=== PATIENT | male | born 1950 | race Caucasian/White ===

== ENCOUNTER 2021-10-22 12:44 | Inpatient (IN) | payer OTHER ==
[~2021-10-22] VITALS: Ht 182 cm; Wt 66.0 kg
--- NOTE | 2021-10-22 12:57 | ED Dyspnea ---
General Stated Complaint: GENERALIZED WEAKNESS Source of Information: Patient, EMS Exam Limitations: No Limitations History of Present Illness Date Seen by Provider: Oct 22, 2021 Time Seen by Provider: 12:38 Initial Comments Patient to the ER by [facility] from home with chief complaint that his jqotgkqs-ij-npd who takes care of him wanted him checked out for pneumonia. Last 2 or 3 days been getting weaker having a productive cough no fevers or chills. 3 months ago he went into the hospital at [place] for a GI bleed and about fci through developed Covid. He just got back home 1 week ago. Is no t having any swelling in his legs but he is having swelling in his right arm for the past week and a half. He is not sure who his PCP is but states that they were unsure why he was having swelling in his arm. He thinks he is on a blood thinner for atrial fibrillation but does not know which one. He is not having any chest pain just some shortness of air weakness lethargy. No diarrhea nausea or vomiting. No sick contacts since he is been home. He was vaccinated for COVID-19 as well as influenza. He has COPD and has been using albuterol treatments about 2 in the last 24 hours for his breathing. He does wear about 3 L of oxygen at baseline. The patient was diagnosed with COVID-19 October 06. Patient started smoking again as soon as he got home. Patient has a EF of 40% according to the nrgwoigf-vu-pum. Allergies and Home Medications Allergies Coded Allergies: No Known Drug Allergies (Unverified , 10/22/21) Patient Home Medication List Home Medication List Reviewed: Yes Review of Systems Review of Systems Constitutional: No chills, No diaphoresis EENTM: No ear discharge, No hearing loss Respiratory: cough, short of breath Cardiovascular: No chest pain; edema (r arm), Hx of Intervention; No palpitations Gastrointestinal: No abdominal pain, No constipation, No diarrhea, No nausea, No vomiting Genitourinary: No discharge, No dysuria Musculoskeletal: No gout, No joint pain, No joint swelling, No muscle pain, No muscle stiffness, No muscle cramps Skin: No pruritus, No rash Psychiatric/Neurological: Denies Headache, Denies Numbness All Other Systems Reviewed Negative Unless Noted: Yes Past Chsyfap-Yauimj-Yeizyz Hx Patient Social History Tobacco Use?: Yes Tobacco type used: Cigarettes Smoking Status: Current Everyday Smoker Use of E-Cig and/or Vaping dev: No Substance use?: No Physical Exam Vital Signs Vital Signs - First Documented 10/22/21 12:50 Temp 36.3 Pulse 64 Resp 18 B/P (MAP) 128/63 (84) Pulse Ox 95 O2 Delivery Nasal Cannula O2 Flow Rate 4.00 Capillary Refill : Height, Weight, BMI Height: '" Weight: lbs. oz. kg; BMI Method: General Appearance: Chronically ill, Mild Distress HEENT: PERRL/EOMI, Pharynx Normal, Moist Mucous Membranes Neck: Full Range of Motion, Normal Inspection Respiratory: No Accessory Muscle Use, No Respiratory Distress, Decreased Breath Sounds, Other (Loose bronchial sounds and a loose cough) Cardiovascular: Regular Rate, Rhythm (65), Normal Peripheral Pulses, Other (Edema of the right arm) Peripheral Pulses: 3+ Radial Pulses (R), 3+ Radial Pulses (L) Gastrointestinal: Normal Bowel Sounds, Non Tender, Soft Extremity: Normal Capillary Refill, No Pedal Edema, Other (Right arm from the axilla down is swollen 1+ edema) Neurologic/Psychiatric: Alert, Oriented x3, No Motor/Sensory Deficits, Normal Mood/Affect Skin: Normal Color, Warm/Dry Progress/Results/Core Measures Results/Orders Lab Results Laboratory Tests Test 10/22/21 13:08 10/22/21 13:14 Range/Units Blood Gas Puncture Site UNK Blood Gas Patient Temperature 97.4 Arterial Blood pH 7.38 7.37-7.43 Arterial Blood Partial Pressure CO2 53 H 35-45 MMHG Arterial Blood Partial Pressure O2 93 79-93 MMHG Arterial Blood HCO3 31 H 23-27 MMOL/L Arterial Blood Total CO2 32.7 H 21.0-31.0 MMOL/L Arterial Blood Oxygen Saturation 99 94-100 % Arterial Blood Base Excess 5.9 H -2.5-2.5 MMOL/L Quincy Test UNK Blood Gas Ventilator Setting NO Blood Gas Inspired Oxygen 4 White Blood Count 6.0 4.3-11.0 10^3/uL Red Blood Count 3.24 L 4.30-5.52 10^6/uL Hemoglobin 9.3 L 13.3-17.7 g/dL Hematocrit 31 L 40-54 % Mean Corpuscular Volume 95 80-99 fL Mean Corpuscular Hemoglobin 29 25-34 pg Mean Corpuscular Hemoglobin Concent 30 L 32-36 g/dL Red Cell Distribution Width 18.6 H 10.0-14.5 % Platelet Count 172 130-400 10^3/uL Mean Platelet Volume 9.6 9.0-12.2 fL Immature Granulocyte % (Auto) 1 % Neutrophils (%) (Auto) 44 42-75 % Lymphocytes (%) (Auto) 43 12-44 % Monocytes (%) (Auto) 13 H 0-12 % Eosinophils (%) (Auto) 0 0-10 % Basophils (%) (Auto) 0 0-10 % Neutrophils # (Auto) 2.6 1.8-7.8 10^3/uL Lymphocytes # (Auto) 2.6 1.0-4.0 10^3/uL Monocytes # (Auto) 0.8 0.0-1.0 10^3/uL Eosinophils # (Auto) 0.0 0.0-0.3 10^3/uL Basophils # (Auto) 0.0 0.0-0.1 10^3/uL Immature Granulocyte # (Auto) 0.0 0.0-0.1 10^3/uL Sodium Level 135 135-145 MMOL/L Potassium Level 4.8 3.6-5.0 MMOL/L Chloride Level 100 98-107 MMOL/L Carbon Dioxide Level 28 21-32 MMOL/L Anion Gap 7 5-14 MMOL/L Blood Urea Nitrogen 17 7-18 MG/DL Creatinine 0.61 0.60-1.30 MG/DL Estimat Glomerular Filtration Rate 101 BUN/Creatinine Ratio 28 Glucose Level 97 70-105 MG/DL Calcium Level 8.3 L 8.5-10.1 MG/DL Corrected Calcium 9.4 8.5-10.1 MG/DL Total Bilirubin 0.4 0.1-1.0 MG/DL Aspartate Amino Transf (AST/SGOT) 17 5-34 U/L Alanine Aminotransferase (ALT/SGPT) 24 0-55 U/L Alkaline Phosphatase 96 40-136 U/L Troponin I < 0.028 <0.028 NG/ML C-Reactive Protein High Sensitivity 15.42 H 0.00-0.50 MG/DL B-Type Natriuretic Peptide 202.0 H <100.0 PG/ML Total Protein 5.7 L 6.4-8.2 GM/DL Albumin 2.6 L 3.2-4.5 GM/DL My Orders Orders - AMY AHUJA Cbc With Automated Diff (10/22/21 12:57) Comprehensive Metabolic Panel (10/22/21 12:57) Hs C Reactive Protein (10/22/21 12:57) Fibrin Degradation Products (10/22/21 12:57) Protime With Inr (10/22/21 12:57) Ua Culture If Indicated (10/22/21 12:57) Chest 1 View, Ap/Pa Only (10/22/21 12:57) Bnp [place] (10/22/21 12:57) Troponin I Alex (10/22/21 12:57) Ekg Tracing (10/22/21 12:57) Arterial Blood Gas (10/22/21 13:08) Us Venous Upper Ext Rt (10/22/21 14:26) Ed Iv/Invasive Line Start (10/22/21 14:26) Piperacillin Sodium/Tazobactam (Zosyn Vi (10/22/21 14:30) Vancomycin Injection (Vancomycin Injecti (10/22/21 14:30) Medications Given in ED Current Medications Medications Dose Ordered Sig/Darion Route Start Time Stop Time Status Last Admin Dose Admin Piperacillin Sod/ Tazobactam Sod 4.5 gm/Sodium Chloride 100 ml @ 200 mls/hr ONCE ONCE IV 10/22/21 14:30 10/22/21 14:59 DC 10/22/21 15:34 200 MLS/HR Vancomycin HCl 1000 mg/Sodium Chloride 250 ml @ 250 mls/hr ONCE ONCE IV 10/22/21 14:30 10/22/21 15:29 DC 10/22/21 15:52 250 MLS/HR Vital Signs/I&O 10/22/21 12:50 Temp 36.3 Pulse 64 Resp 18 B/P (MAP) 128/63 (84) Pulse Ox 95 O2 Delivery Nasal Cannula O2 Flow Rate 4.00 Progress Progress Note #1: Time: 13:02 Progress Note Patient has aseptic vital signs, loose bronchial cough but diminished nonwheezy breath sounds. Plan to get a chest x-ray and some blood work including a D- dimer. With the swelling in his right arm a concern to be for a DVT possible PE. Oxygen saturations on his baseline 3 L are in the mid upper 90s. He does not have any increased overt work of breathing. Bacterial pneumonia versus viral versus PE etc. we will get a BNP and since he has a history of heart attack we will get an EKG and troponin. Progress Note #2: Time: 15:36 Progress Note Patient is resting comfortably has got his blood cultures and will start antibiotics. We will get a CT angiogram of the chest. Initial ECG Impression Date: Oct 22, 2021 Initial ECG Impression Time: 14:20 Initial ECG Rate: 63 Initial ECG Rhythm: Normal Sinus Initial ECG Intervals: Normal Initial ECG Impression: Normal Comment Normal sinus rhythm without clinically relevant ST elevation or depression. Diagnostic Imaging Diagonstic Imaging: Xray Plain Films/CT/US/NM/MRI: chest Comments [facility], [place] NAME: PRIMO CHIRINOS MED REC#: [id number] PT STATUS: REG ER : 1950 PHYSICIAN: AMY AHUJA MD ADMIT DATE: 10/22/21/ER Draft Date of Exam:10/22/21 CHEST 1 VIEW, AP/PA ONLY INDICATION: Weakness. TIME OF EXAM: 1:21 PM No prior studies are available for comparison. Heart size is mildly enlarged. There appears to be some infiltrate in the left base obscuring the left hemidiaphragm as well as a small left effusion. There is some mild patchy infiltrate or atelectasis right mid lower lung field as well. Upper lung arnold are clear. There is no pneumothorax. IMPRESSION: Bibasilar infiltrates, left greater as well as small left effusion. Dictated on workstation # [id number] Dict: 10/22/21 1329 Trans: 10/22/21 1332 [id number] Interpreted by: DWIGHT KRUEGER MD Electronically signed by: Reviewed: Reviewed by Me Diagonstic Imaging: Ultrasound Plain Films/CT/US/NM/MRI: other (upper ext right) Comments Right arm superficial cephalic vein has clot burden all the way up to and in the subclavian where becomes deep vein. NAME: PRIMO CHIRINOS MED REC#: [id number] PT STATUS: REG ER : 1950 PHYSICIAN: AMY AHUJA MD ADMIT DATE: 10/22/21/ER Draft Date of Exam:10/22/21 US VENOUS UPPER EXT RT INDICATION: Right arm swelling. FINDINGS: Right internal jugular vein is patent. There is thrombus identified in the subclavian vein which appears to be near totally occlusive. This is also noted in a portion of the axillary vein. Brachial vein is patent. Radial and ulnar veins are patent. There is occlusive thrombus throughout the cephalic vein. Basilic vein was poorly visualized. 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 Dictated on workstation # [id number] Dict: 10/22/21 1530 Trans: 10/22/21 1537 [id number] Interpreted by: DWIGHT KRUEGER MD Electronically signed by: Reviewed: Reviewed by Me Diagonstic Imaging: CT (Angiogram) Plain Films/CT/US/NM/MRI: chest Comments [facility] [place] NAME: PRIMO CHIRINOS [facility] REC#: [id number] PT STATUS: ADM IN : 1950 PHYSICIAN: RADHA PAUL APRN ADMIT DATE: 10/22/21/ Signed Date of Exam:10/22/21 CT ANGIO CHEST W PROCEDURE: CT angiography of the chest with contrast. TECHNIQUE: Multiple contiguous axial images were obtained through the chest after uneventful bolus administration of intravenous contrast. 3D reconstructed CTA MIP acquisitions were also performed. Auto Exposure Controls were utilized during the CT exam to meet ALARA standards for radiation dose reduction. INDICATION: Shortness of air. COMPARISON: No prior CT angiogram chest studies are available for comparison. FINDINGS: Evaluation of the pulmonary arterial system does show filling defect in a lobar artery to the right middle lobe as well as a segmental branch to the right middle lobe. There is a filling defect involving segmental and subsegmental branches to the right lower lobe. No definite left-sided pulmonary emboli are seen. No central emboli are detected. The thoracic aorta is normal in caliber. There is no dissection. There is a small right and sqoim-ej-hckfdrkk left pleural effusion. Parenchymal evaluation does show centrilobular emphysematous changes. There is some minimal patchy infiltrate in the posterior left upper lobe. There is bibasilar consolidation. Upper abdomen is unremarkable apart from small stones within the gallbladder. IMPRESSION: 1. Findings positive for pulmonary emboli involving lobar and segmental branches to the right middle lobe and right lower lobe. No central emboli are seen. There are no findings to suggest right heart strain. 2. Bilateral effusions, left greater, with bibasilar consolidation. Results were called to Radha Paul in the emergency department prior to this dictation. Dictated by: Dictated on workstation # [id number] Dict: 10/22/21 1552 Trans: 10/22/21 1639 [id number] Interpreted by: DWIGHT KRUEGER MD Electronically signed by: DWIGHT KRUEGER MD 10/22/21 1639 Reviewed: Reviewed by Me Departure Communication (Admissions) Time/Spoke to Admitting Phy: 14:20 Discussed the case with Dr. Segura and he agrees to admit the patient to the floor with physical therapy consult. Impression Primary Impression: Aspiration pneumonia Qualified Codes: J69.0 - Pneumonitis due to inhalation of food and vomit Additional Impressions: Physical debility Superficial venous thrombosis of right upper extremity Disposition: ADMITTED INPATIENT Condition: Stable Admissions Decision to Admit Reason: Admit from ER (General) Decision to Admit/Date: Oct 22, 2021 Time/Decision to Admit Time: 14:15 Departure-Patient Inst. Referrals: NO,LOCAL PHYSICIAN (PCP/Family) Primary Care Physician AMY AHUJA Oct 22, 2021 12:57
[2021-10-22 13:21] LABS: BASOPHILS % (AUTO) 0 % (0-10); EOSINOPHILS % (AUTO) 0 % (0-10); HEMATOCRIT 31 % (40-54); HEMOGLOBIN 9.3 g/dL (13.3-17.7); LYMPHOCYTES # (AUTO) 2.6 10^3/uL (1.0-4.0); LYMPHOCYTES % (AUTO) 43 % (12-44); MEAN CORPUSCULAR HEMOGLOBIN 29 pg (25-34); MEAN CORPUSCULAR HGB CONC 30 g/dL (32-36); MEAN CORPUSCULAR VOLUME 95 fL (80-99); MEAN PLATELET VOLUME 9.6 fL (9.0-12.2); MONOCYTES # (AUTO) 0.8 10^3/uL (0.0-1.0); MONOCYTES % (AUTO) 13 % (0-12); NEUTROPHILS # (AUTO) 2.6 10^3/uL (1.8-7.8); NEUTROPHILS % (AUTO) 44 % (42-75); PLATELET COUNT 172 10^3/uL (130-400)
[2021-10-22 13:22] LABS: ABG BASE EXCESS 5.9 MMOL/L (-2.5-2.5); ABG OXYGEN SATURATION 99 % (94-100); ABG PCO2 53 MMHG (35-45); ABG PH 7.38 (7.37-7.43); ABG PO2 93 MMHG (79-93); ABG TCO2 32.7 MMOL/L (21.0-31.0)
[2021-10-22 13:23] LABS: INSPIRED O2 4; PATIENT TEMP 97.4; VENTILATOR NO
[2021-10-22 13:32] LABS: ALBUMIN 2.6 GM/DL (3.2-4.5)
--- NOTE | 2021-10-22 13:32 | Diagnostic Imaging Report ---
INDICATION: Weakness. TIME OF EXAM: 1:21 PM No prior studies are available for comparison. Heart size is mildly enlarged. There appears to be some infiltrate in the left base obscuring the left hemidiaphragm as well as a small left effusion. There is some mild patchy infiltrate or atelectasis right mid lower lung field as well. Upper lung arnold are clear. There is no pneumothorax. IMPRESSION: Bibasilar infiltrates, left greater as well as small left effusion. Dictated by: Dictated on workstation # [id number]
[2021-10-22 13:33] LABS: CHLORIDE 100 MMOL/L (98-107); POTASSIUM 4.8 MMOL/L (3.6-5.0); SODIUM 135 MMOL/L (135-145)
[2021-10-22 13:34] LABS: CALCIUM 8.3 MG/DL (8.5-10.1)
[2021-10-22 13:35] LABS: GLUCOSE 97 MG/DL (70-105); TOTAL PROTEIN 5.7 GM/DL (6.4-8.2)
[2021-10-22 13:36] LABS: CARBON DIOXIDE 28 MMOL/L (21-32)
[2021-10-22 13:37] LABS: BILIRUBIN,TOTAL 0.4 MG/DL (0.1-1.0)
[2021-10-22 13:38] LABS: ALKALINE PHOSPHATASE 96 U/L (40-136)
[2021-10-22 13:39] LABS: CREATININE SERUM 0.61 MG/DL (0.60-1.30); GFR ESTIMATED 101
[2021-10-22 13:40] LABS: BUN/CREATININE RATIO 28
[2021-10-22 13:42] LABS: ALANINE AMINOTRANSFERASE 24 U/L (0-55)
[2021-10-22] MEDS ORDERED: PIPERACILLIN SODIUM/TAZOBACTAM 4.5 GM in NS (IVPB) 100 ML IV ONE (14:30)
[2021-10-22] MEDS ORDERED: VANCOMYCIN INJECTION 1,000 MG in NS (IVPB) 250 ML IV ONE (14:30)
[2021-10-22 14:45] LABS: BILIRUBIN,URINE NEGATIVE (NEGATIVE); CLARITY,URINE CLEAR; COLOR,URINE YELLOW; GLUCOSE, URINE (UA) NEGATIVE (NEGATIVE); KETONES,URINE NEGATIVE (NEGATIVE); LEUKOCYTE ESTERASE ,URINE NEGATIVE (NEGATIVE); NITRITE,URINE NEGATIVE (NEGATIVE); PH,URINE 6.5 (5-9); PROTEIN,URINE TRACE (NEGATIVE)
[2021-10-22 14:57] LABS: BACTERIA,URINE NEGATIVE /HPF; RBC,URINE 0-2 /HPF; WBC,URINE RARE /HPF
[2021-10-22] MEDS ORDERED: IOHEXOL 350 MG/ML 100 ML (OMNIPAQUE 350) VIAL IV ONE (15:30)
[2021-10-22] MEDS ORDERED: NS 100 ML (IVPB) BAG IV ONE (15:30)
[2021-10-22] MEDS ORDERED: CATHETER FLUSH 10 ML SYR IV PRN (15:30)
[2021-10-22] MEDS ORDERED: HOLD METFORMIN - RECEIVED CONTRAST 20 ML VIAL IV SCH (15:30)
--- NOTE | 2021-10-22 15:38 | Diagnostic Imaging Report ---
INDICATION: Right arm swelling. FINDINGS: Right internal jugular vein is patent. There is thrombus identified in the subclavian vein which appears to be near totally occlusive. This is also noted in a portion of the axillary vein. Brachial vein is patent. Radial and ulnar veins are patent. There is occlusive thrombus throughout the cephalic vein. Basilic vein was poorly visualized. 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 Dictated by: Dictated on workstation # [id number]
--- NOTE | 2021-10-22 16:01 | Diagnostic Imaging Report ---
PROCEDURE: CT angiography of the chest with contrast. TECHNIQUE: Multiple contiguous axial images were obtained through the chest after uneventful bolus administration of intravenous contrast. 3D reconstructed CTA MIP acquisitions were also performed. Auto Exposure Controls were utilized during the CT exam to meet ALARA standards for radiation dose reduction. INDICATION: Shortness of air. COMPARISON: No prior CT angiogram chest studies are available for comparison. FINDINGS: Evaluation of the pulmonary arterial system does show filling defect in a lobar artery to the right middle lobe as well as a segmental branch to the right middle lobe. There is a filling defect involving segmental and subsegmental branches to the right lower lobe. No definite left-sided pulmonary emboli are seen. No central emboli are detected. The thoracic aorta is normal in caliber. There is no dissection. There is a small right and rcrrc-cg-deeoqviw left pleural effusion. Parenchymal evaluation does show centrilobular emphysematous changes. There is some minimal patchy infiltrate in the posterior left upper lobe. There is bibasilar consolidation. Upper abdomen is unremarkable apart from small stones within the gallbladder. IMPRESSION: 1. Findings positive for pulmonary emboli involving lobar and segmental branches to the right middle lobe and right lower lobe. No central emboli are seen. There are no findings to suggest right heart strain. 2. Bilateral effusions, left greater, with bibasilar consolidation. Results were called to Yao Paul in the emergency department prior to this dictation. Dictated by: Dictated on workstation # [id number]
[2021-10-22 16:07] LABS: FIBRIN DEGRADATION PRODUCTS 1.61 UG/ML (0.00-0.49); PROTHROMBIN TIME PATIENT 13.9 SEC (12.2-14.7)
[2021-10-22 17:34] VITALS: BP 143/61
[2021-10-22] MEDS ORDERED: ONDANSETRON 4 MG/2 ML (SDV) Z0FRAN IVP PRN (19:00)
[2021-10-22 19:15] VITALS: BP 126/67
[2021-10-22] MEDS: LACTATED RINGERS 1,000 ML IV SCH (20:23)
[2021-10-22] MEDS: ENOXAPARIN 60 MG/0.6 ML (LOVENOX) SYR SC SCH (20:23)
[2021-10-22] MEDS: ALPRAZolam 0.25 MG (XANAX) TAB PO PRN (20:29)
[2021-10-22] MEDS ORDERED: NICOTINE 14 MG (NICODERM) PATCH TD ONE (21:00)
[2021-10-22] MEDS: RT-ALBUTEROL/IPRATROPIUM 3 ML (DUONEB) VIAL IH SCH (22:02)
[2021-10-22] MEDS: PIPERACILLIN SODIUM/TAZOBACTAM 4.5 GM in NS (IVPB) 100 ML IV SCH (22:45)
[2021-10-22] MEDS: ACETAMINOPHEN 500 MG TAB (TYLENOL) PO PRN (23:28)
[2021-10-23] VITALS: BP 113/57
[2021-10-23] MEDS: RT-ALBUTEROL/IPRATROPIUM 3 ML (DUONEB) VIAL IH SCH ×4 (02:52→21:45)
[2021-10-23 04:13] VITALS: BP 123/60
[2021-10-23] MEDS: VANCOMYCIN 1 GM/NS 250 ML IVPB IV SCH ×6 (04:28→17:54)
[2021-10-23] MEDS: PIPERACILLIN SODIUM/TAZOBACTAM 4.5 GM in NS (IVPB) 100 ML IV SCH ×3 (05:50→21:07)
[2021-10-23] MEDS: LEVOTHYROXINE 100 MCG (LEVOTHROID) TAB PO SCH (05:50)
[2021-10-23 06:48] LABS: BASOPHILS % (AUTO) 0 % (0-10); EOSINOPHILS % (AUTO) 1 % (0-10); HEMATOCRIT 28 % (40-54); HEMOGLOBIN 8.4 g/dL (13.3-17.7); LYMPHOCYTES # (AUTO) 3.1 10^3/uL (1.0-4.0); LYMPHOCYTES % (AUTO) 56 % (12-44); MEAN CORPUSCULAR HEMOGLOBIN 29 pg (25-34); MEAN CORPUSCULAR HGB CONC 31 g/dL (32-36); MEAN CORPUSCULAR VOLUME 95 fL (80-99); MONOCYTES # (AUTO) 0.6 10^3/uL (0.0-1.0); MONOCYTES % (AUTO) 10 % (0-12); NEUTROPHILS # (AUTO) 1.8 10^3/uL (1.8-7.8); NEUTROPHILS % (AUTO) 33 % (42-75); PLATELET COUNT 154 10^3/uL (130-400); WHITE BLOOD COUNT 5.6 10^3/uL (4.3-11.0)
[2021-10-23 07:02] LABS: POTASSIUM 4.8 MMOL/L (3.6-5.0)
[2021-10-23 07:07] LABS: CREATININE SERUM 0.65 MG/DL (0.60-1.30)
[2021-10-23 07:24] VITALS: BP 133/65
[2021-10-23] MEDS: LACTATED RINGERS 1,000 ML IV SCH ×3 (08:10→16:33)
[2021-10-23] MEDS ORDERED: NICOTINE 7 MG (NICODERM) PATCH TD PRN (09:00)
[2021-10-23] MEDS: NICOTINE 14 MG (NICODERM) PATCH TD SCH (09:18)
[2021-10-23] MEDS: NICOTINE PATCH REMOVAL TP SCH (09:18)
[2021-10-23] MEDS: ENOXAPARIN 60 MG/0.6 ML (LOVENOX) SYR SC SCH ×2 (09:18→21:07)
--- NOTE | 2021-10-23 09:42 | Diagnostic Imaging Report ---
EXAMINATION: Chest radiograph, portable AP view. DATE: 10/23/2021 9:15 AM INDICATION: 71-year-old male, shortness of breath. COMPARISON: October 22, 2021. FINDINGS: Heart size and mediastinal contours are unchanged. There is no identified pneumothorax. There are sutures projecting over the right upper lobe. There is mid and lower lung zone consolidation on the right and nonspecific left basilar airspace consolidation which is unchanged. IMPRESSION: 1. Unchanged nonspecific right mid and lower lung zone consolidation and consolidation in the left lung base. Dictated by: Dictated on workstation # [id number]
--- NOTE | 2021-10-23 10:52 | Occupational Therapy Eval ---
OT Evaluation-General/PLF Medical Diagnosis Admission Date Oct 22, 2021 at 14:30 Medical Diagnosis: PNA, aspiration, physical debility, PE Onset Date: Oct 22, 2021 Therapy Diagnosis Therapy Diagnosis: decreased ADL status Precautions Precautions/Isolations: Standard Precautions Referral Physician: Sana Robin Reason: Evaluation/Treatment Medical History Additional Medical History Post COVID Current History ED s/o of daughter in law wanting pt checked for pneumonia. 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 6-Jbhltkihho-jsewxdr completes the activity by him/herself with no assistance from a helper. 5-Set-up or Clean-up Assistance-helper sets up or cleans up; patient completes activity. Hopkins assists only prior to or following the activity. 4-Supervision or Touching Assistance-helper provides verbal cues and/or touching/steadying and/or contact guard assistance as patient completes activity. Assistance may be provided throughout the activity or intermittently. 3-Partial/Moderate Assistance-helper does LESS THAN HALF the effort. Hopkins lifts, holds or supports trunk or limbs, but provides less than half the effort. 2-Substantial/Maximal Assistance-helper does MORE THAN HALF the effort. [place] lifts or holds trunk or limbs and provides more than half the effort. 8-Bwzhuaihr-wmbgaw does ALL the effort. Patient does none of the effort to complete the activity. Or, the assistance of 2 or more helpers is required for the patient to complete the activity. If activity was not attempted, code reason: 7-Patient Refused. 9-Not Applicable-not attempted and the patient did not perform the activity before the current illness, exacerbation or injury. 10-Not Attempted due to Environmental Limitations-(lack of equipment, weather restraints, etc.). 88-Not Attempted due to Medical Conditions or Safety Concerns. ADL PLOF Comments Pt reports independent with dressing and toileting, required some assistance with showering and assistance with functional mobility using FWW. Pt lives with daughter in law and her , indicates the is home all the time, daughter in law cleans houses and can be home when she wants/needs to. Self Care: Needed Some Help OT Current Status Subjective Pt in bed, agreeable to OT evaluation. Mental Status/Objective Patient Orientation: Person, Place, Situation Attachments: IV, Oxygen Current Upper Extremity ROM Slightly decreased Upper Extremity Strength grossly 3/5 Edema: RUE swelling ADL-Treatment Eating (QC): 6 (IND per nursing report.) Shower/Bathe Self (QC): 1 (Per clincial judgment, assist x2 needed.) Lower Body Dressing (QC): 1 (Per clincial judgment, assist x2 needed.) On/Off Footwear (QC): 1 (total assist with gripper socks.) Toileting Hygiene (QC): 1 (Per clincial judgment, assist x2 needed.) Other Treatments Pt in bed, agreeable to OT Tx. PT transferred supine to sit EOB, assistance with upper body. Pt had difficulty maintaining EOB sitting, requiring assistance with maintaining trunk upright. Pt stood at walker, retropulsive, transferred to recliner. Pt uncoordinated with steps, requiring assistance guiding walker in order to turn to the chair. Pt stood 1 more time in order for waffle cushion to be placed underneath him, pt had more difficulty standing from lower surface, assist x2 required. Post tx, pt in recliner, call light in reach and all needs met. Waffle cushion in place. Education OT Patient Education: Correct positioning, Energy conservation, Modified ADL techniques, Progress toward Goal/Update tx plan, Rehab process Teaching Recipient: Patient Teaching Methods: Discussion Response to Teaching: Verbalize Understanding OT Vocational Examiner Goals Vocational Examiner Goals Time Frame: Nov 06, 2021 Eating (QC): 6 Oral Hygiene (QC): 5 Toileting Hygiene (QC): 4 Shower/Bathe Self (QC): 3 Upper Body Dressing (QC): 4 Lower Body Dressing (QC): 3 On/Off Footwear (QC): 3 Additional Goals: 1-Demonstrate ADL Tasks, 2-Verbalize Understanding, 3- ImproveStrength/Luana 1=Demonstrate adherence to instructed precautions during ADL tasks. 2=Patient will verbalize/demonstrate understanding of assistive devices/modifications for ADL. 3=Patient will improve strength/tolerance for activity to enable patient to perform ADL's. OT Education/Plan Problem List/Assessment Assessment: Decreased Activ Tolerance, Decreased UE Strength, Dependent Transfers, Impaired Bed Mobility, Impaired Funct Balance, Impaired I ADL's, Impaired Self-Care Skills Discharge Recommendations Plan/Recommendations: Continue POC Treatment Plan/Plan of Care Patient would benefit from OT for education, treatment and training to promote independence in ADL's, mobility, safety and/or upper extremity function for ADL's. Plan of Care: ADL Retraining, Functional Mobility, UE Funct Exercise/Act Treatment Duration: Nov 06, 2021 Frequency: 3 times per week (3-5 times per week) Estimated Hrs Per Day: .25 hour per day Rehab Potential: Guarded Time/GCodes Start Time: 10:16 Stop Time: 10:32 Total Time Billed (hr/min): 16 Billed Treatment Time 1, KEN ANTUNEZ OT Oct 23, 2021 10:52
--- NOTE | 2021-10-23 11:22 | Physical Therapy Evaluation ---
PT Evaluation-General Medical Diagnosis Admission Date Oct 22, 2021 at 14:30 Medical Diagnosis: PNA, aspiration, physical debility, PE Onset Date: Oct 22, 2021 Therapy Diagnosis Therapy Diagnosis: weakness, debility Precautions Precautions/Isolations: Standard Precautions Weight Bear Status Right Lower Extremity: Right Full Weight Bearing Left Lower Extremity: Left Full Weight Bearing Referral Physician: Sana Reason for Referral: Evaluation/Treatment Social History Home: Single Level Current Living Status: Other Family Prior Prior Level of Function SCALE: Activities may be completed with or without assistive devices. 5-Wdkmhswcqb-tkhvxvw completes the activity by him/herself with no assistance from a helper. 5-Set-up or Clean-up Assistance-helper sets up or cleans up; patient completes activity. Wheeler assists only prior to or following the activity. 4-Supervision or Touching Assistance-helper provides verbal cues and/or touching/steadying and/or contact guard assistance as patient completes activity. Assistance may be provided throughout the activity or intermittently. 3-Partial/Moderate Assistance-helper does LESS THAN HALF the effort. Wheeler lifts, holds or supports trunk or limbs, but provides less than half the effort. 2-Substantial/Maximal Assistance-helper does MORE THAN HALF the effort. Wheeler lifts or holds trunk or limbs and provides more than half the effort. 0-Opbdtybfp-tyiigw does ALL the effort. Patient does none of the effort to complete the activity. Or, the assistance of 2 or more helpers is required for the patient to complete the activity. If activity was not attempted, code reason: 7-Patient Refused. 9-Not Applicable-not attempted and the patient did not perform the activity before the current illness, exacerbation or injury. 10-Not Attempted due to Environmental Limitations-(lack of equipment, weather restraints, etc.). 88-Not Attempted due to Medical Conditions or Safety Concerns. Bed Mobility: 3 Transfers (B,C,W/C): 3 Gait: 3 Prior Devices Use: Walker PT Evaluation-Current Subjective Pt presents supine in bed upon arrival to room, agreeable to PT evaluation this date. Pt/Family Goals Following session, pt up in chair with call light, tray table, and phone all within reach. All needs met Objective Patient Orientation: Person, Place, Situation Attachments: Oxygen, IV ROM/Strength ROM Lower Extremities grossly WFL Strength Lower Extremities grossly WFL Integumentary/Posture Integumentary refer to nursing notes Neuromuscular (Tone, Coordination, Reflexes) grossly intact Transfers Roll Left to Right (QC): 4 Lying to Sitting/Side of Bed(Q: 3 Sit to Stand (QC): 2 Chair/Qjl-by-Kqpbe Xfer(QC): 3 Pt requires min-mod A for bed mobility. While sitting EOB, pt repulsive, able to correct with cues but unable to maintain. Gait Does the Patient Walk?: Yes Mode of Locomotion: Walk Anticipated Mode of Locomotion: Walk Walk 10 feet (QC): 3 Gait Assistive Device: FWW Comments/Gait Description Pt able to ambulate 10' with FWW, very uncoordinated steps, and retropulsive. Unable to move NIKKI forward with cueing, requires manual assistance to lean forward. Assessment/Needs Pt is a 71 year old male, with decreased strength, decreased balance, decreased functional mobility and activity tolerance following prolonged hospital stay. Pt would benefit from skilled PT to address above mentioned limitations and ensure safety upon dc from hospital. Rehab Potential: Fair PT Short Term Goals Short Term Goals Time Frame: Nov 06, 2021 Roll Left & Right: 4 Sit to lyin Lying to sitting on side of be: 4 Sit to stand: 4 Chair/qoa-im-ylvti transfer: 4 Walk 10 feet: 4 Walk 50 feet with two turns: 4 PT Group Home Goals Group Home Goals PT C[employer] Goals Time Frame: Nov 20, 2021 Roll Left & Right (QC): 6 Sit to Lying (QC): 6 Lying-Sitting on Side/Bed(QC): 6 Sit to Stand (QC): 6 Chair/Hvl-ve-Uosos Xfer(QC): 6 Walk 10 feet (QC): 6 Walk 50ft with 2 Turns (QC): 6 PT Plan Problem List Problem List: Activity Tolerance, Functional Strength, Safety, Balance, Gait, Transfer, Bed Mobility, ROM Treatment/Plan Treatment Plan: Continue Plan of Care Treatment Plan: Bed Mobility, Education, Functional Activity Luana, Functional Strength, Gait, Safety, Therapeutic Exercise, Transfers Treatment Duration: Nov 20, 2021 Frequency: 6 times per week Estimated Hrs Per Day: .25 hour per day Patient and/or Family Agrees t: Yes Time/GCodes Time In: 1017 Time Out: 1032 Total Billed Treatment 1 visit [facility] (15') JESSICA BENSON PT Oct 23, 2021 11:22
[2021-10-23 11:31] VITALS: BP 123/53
[2021-10-23 16:00] VITALS: BP 118/54
--- NOTE | 2021-10-23 16:32 | History & Physical-Hospitalist ---
History of Present Illness HPI/Chief Complaint Anthony Trotter is a 71 year old male with PMH atrial fibrillation, recent GI bleed, HLD, COPD, tobacco abuse, who presented with shortness of breath. He was recently discharged from [facility] after a nearly two month hospitalization. He reports that he was treated for pneumonia, COVID, and GI bleeding. He was debilitated and had to move in with his daughter in [place] on discharge. He had previously been living at his home by himself in [place]. He had been home about ten days prior to coming into our ER. His daughter was concerned that he was developing pneumonia. He was set up with home oxygen on discharge and was supposed to be on 3 L, but he says after a week of being at home they came and took his oxygen tank. He has also had right arm swelling where a PICC line had been during his hospital stay. Source: patient Exam Limitations: no limitations Date Seen 10/23/21 Time Seen by a Provider: 11:30 Attending Physician Ana Quiroz MD PCP No,Local Physician Referring Physician Date of Admission Oct 22, 2021 at 14:30 Home Medications & Allergies Home Medications Reviewed patient Home Medication Reconciliation performed by pharmacy medication reconciliations military administrative technician and/or nursing. Patients Allergies have been reviewed. Allergies Allergies Coded Allergies No Known Drug Allergies (Unverified10/22/21) Past Qiixfhs-Iusmqx-Tyiuqy Hx Patient Social History Tobacco Use?: Yes Tobacco type used: Cigarettes Smoking Status: Current Everyday Smoker Use of E-Cig and/or Vaping dev: No Substance use?: No Alcohol Use?: No Pt feels they are or have been: No Immunizations Up To Date First/Initial COVID19 Vaccinat: 2020 Second COVID19 Vaccination Femi: 2020 Tetanus Booster (TDap): Unknown Hepatitis A: No Hepatitis B: No Current Status Advance Directives: No Communicates: Verbally Primary Language: Honduran Preferred Spoken Language: Honduran Is interpretation needed?: No Implanted or Applied Medical D: None Past Medical History Atrial Fibrillation, High Cholesterol Gastrointestinal Bleed Family Medical History No Pertinent Family Hx Review of Systems Constitutional: weakness EENTM: no symptoms reported Respiratory: cough, short of breath Cardiovascular: no symptoms reported Gastrointestinal: no symptoms reported Genitourinary: no symptoms reported Musculoskeletal: no symptoms reported Skin: no symptoms reported Psychiatric/Neurological: No Symptoms Reported Physical Exam Physical Exam Vital Signs Vital Signs - First Documented 10/22/21 12:50 Temp 36.3 Pulse 64 Resp 18 B/P (MAP) 128/63 (84) Pulse Ox 95 O2 Delivery Nasal Cannula O2 Flow Rate 4.00 Capillary Refill : Less Than 3 Seconds Height, Weight, BMI Height: '" Weight: lbs. oz. kg; 19.92 BMI Method: General Appearance: No Apparent Distress, Chronically ill, Thin HEENT: PERRL/EOMI, Pharynx Normal Neck: Normal Inspection, Supple Respiratory: Lungs Clear, No Respiratory Distress Cardiovascular: Regular Rate, Rhythm, No Murmur Gastrointestinal: Normal Bowel Sounds, Non Tender, Soft Extremity: Normal Inspection, Non Tender, No Pedal Edema Neurologic/Psychiatric: Alert, Oriented x3, Normal Mood/Affect Skin: Normal Color, Warm/Dry Results Results/Procedures Labs Laboratory Tests 10/22/21 13:14 10/23/21 05:20 Patient resulted labs reviewed. Imaging: Reviewed Imaging Report Assessment/Plan Admission Diagnosis Acute on chronic respiratory failure with hypoxia Admission Status: Inpatient Order (span 2 midnights) Reason for Inpatient Admission: IV antibiotics Assessment and Plan Acute on chronic respiratory failure with hypoxia Pulmonary embolism Pneumonia Not septic CT showed pulmonary emboli, bibasilar consolidations Started on therapeutic Lovenox Started on Vancomycin and Zosyn for pneumonia, recently hospitalized Requiring supplemental oxygen, slightly above baseline 3 L Atrial fibrillation Recent GI bleed Anemia Continue amiodarone and diltiazem Lovenox Obtain records from [facility]F Reportedly reduced EF Obtain records Does not appear to be decompensated Tobacco abuse COPD Nicotine patch MAT protocol Debility PT/OT IRF evaluation Diagnosis/Problems Diagnosis/Problems (1) Acute on chronic respiratory failure with hypoxia Status: Acute (2) Pulmonary embolism Status: Acute Qualifiers: Chronicity: acute (3) Acute deep vein thrombosis (DVT) of axillary vein of right upper extremity Status: Acute (4) Pneumonia Status: Acute (5) Paroxysmal atrial fibrillation Status: Chronic (6) History of GI bleed Status: Chronic (7) Anemia Status: Chronic (8) Tobacco abuse Status: Chronic (9) CHF (congestive heart failure) Status: Chronic (10) History of recent hospitalization Status: Acute (11) Debility Status: Acute ANA QUIROZ MD Oct 23, 2021 16:32
[2021-10-23] MEDS: TAMSULOSIN 0.4 MG (FLOMAX) CAP PO SCH (17:51)
[2021-10-23] MEDS ORDERED: RT-ALBUINH IH (19:58)
[2021-10-23] MEDS ORDERED: DOCU100C37 PO (19:58)
[2021-10-23] MEDS ORDERED: CYAN100088 PO (19:58)
[2021-10-23] MEDS ORDERED: ALPR0.25 PO (19:58)
[2021-10-23] MEDS ORDERED: LEVO200C2 PO (19:58)
[2021-10-23] MEDS ORDERED: AMIO200T65 PO (19:58)
[2021-10-23] MEDS ORDERED: ATOR10TA66 PO (19:58)
[2021-10-23] MEDS ORDERED: MIRT-68 PO (19:58)
[2021-10-23] MEDS ORDERED: TMSL.4C PO (19:58)
[2021-10-23] MEDS ORDERED: DLT90CCR PO (19:58)
[2021-10-23] MEDS ORDERED: VITA400C64 PO (19:58)
[2021-10-23] MEDS ORDERED: IPRA4AER IH (19:58)
[2021-10-23] MEDS ORDERED: OMEP20TA7 PO (19:58)
[2021-10-23 20:00] VITALS: BP 124/52
[2021-10-23] MEDS ORDERED: OMEP40CA6 PO (20:02)
[2021-10-23] MEDS: ALPRAZolam 0.25 MG (XANAX) TAB PO PRN (21:06)
[2021-10-23] MEDS ORDERED: PANTOPRAZOLE 40 MG (PROTONIX) TAB PO ONE (22:45)
[2021-10-24 01:01] VITALS: BP 123/60
[2021-10-24 03:48] VITALS: BP 118/59
[2021-10-24] MEDS: LEVOTHYROXINE 100 MCG (LEVOTHROID) TAB PO SCH (05:20)
[2021-10-24] MEDS: PANTOPRAZOLE 40 MG (PROTONIX) TAB PO SCH ×2 (05:20→15:56)
[2021-10-24] MEDS: PIPERACILLIN SODIUM/TAZOBACTAM 4.5 GM in NS (IVPB) 100 ML IV SCH ×3 (05:20→21:24)
[2021-10-24 06:00] LABS: BASOPHILS % (AUTO) 0 % (0-10); EOSINOPHILS % (AUTO) 1 % (0-10); HEMATOCRIT 28 % (40-54); HEMOGLOBIN 8.6 g/dL (13.3-17.7); LYMPHOCYTES # (AUTO) 3.3 10^3/uL (1.0-4.0); LYMPHOCYTES % (AUTO) 56 % (12-44); MEAN CORPUSCULAR HEMOGLOBIN 29 pg (25-34); MEAN CORPUSCULAR HGB CONC 31 g/dL (32-36); MEAN CORPUSCULAR VOLUME 94 fL (80-99); MEAN PLATELET VOLUME 9.8 fL (9.0-12.2); MONOCYTES # (AUTO) 0.6 10^3/uL (0.0-1.0); MONOCYTES % (AUTO) 10 % (0-12); NEUTROPHILS % (AUTO) 33 % (42-75); PLATELET COUNT 167 10^3/uL (130-400)
[2021-10-24 06:14] LABS: POTASSIUM 4.9 MMOL/L (3.6-5.0)
[2021-10-24 06:15] LABS: CALCIUM 8.1 MG/DL (8.5-10.1)
[2021-10-24 06:20] LABS: CREATININE SERUM 0.61 MG/DL (0.60-1.30)
[2021-10-24] MEDS: RT-ALBUTEROL/IPRATROPIUM 3 ML (DUONEB) VIAL IH SCH ×3 (07:15→20:50)
[2021-10-24 07:28] VITALS: BP 128/63
[2021-10-24] MEDS: NICOTINE 14 MG (NICODERM) PATCH TD SCH (08:33)
[2021-10-24] MEDS: ENOXAPARIN 60 MG/0.6 ML (LOVENOX) SYR SC SCH ×2 (08:33→20:21)
[2021-10-24] MEDS: AMIODARONE 200 MG (CORDARONE) TAB PO SCH (08:33)
[2021-10-24] MEDS: NICOTINE PATCH REMOVAL TP SCH (08:33)
[2021-10-24] MEDS ORDERED: NICOTINE PATCH REMOVAL TP SCH (08:59)
[2021-10-24 11:14] VITALS: BP 132/67
--- NOTE | 2021-10-24 13:04 | Progress Note - Hospitalist ---
Subjective HPI/CC On Admission Date Seen by Provider: Oct 24, 2021 Time Seen by Provider: 10:55 Anthony Trotter is a 71 year old male with PMH atrial fibrillation, recent GI bleed, HLD, COPD, tobacco abuse, who presented with shortness of breath. He was recently discharged from [facility] after a nearly two month hospitalization. He reports that he was treated for pneumonia, COVID, and GI bleeding. He was debilitated and had to move in with his daughter in [place] on discharge. He had previously been living at his home by himself in [place]. He had been home about ten days prior to coming into our ER. His daughter was concerned that he was developing pneumonia. He was set up with home oxygen on discharge and was supposed to be on 3 L, but he says after a week of being at home they came and took his oxygen tank. He has also had right arm swelling where a PICC line had been during his hospital stay. Subjective/Events-last exam He is feeling pretty good. He denies shortness of breath. He denies pain. He has not notice any bleeding. Objective Exam Vital Signs Vital Signs Date Time Temp Pulse Resp B/P (MAP) Pulse Ox O2 Delivery O2 Flow Rate FiO2 10/24/21 11:14 36.5 63 20 132/67 (88) 96 Nasal Cannula 4.00 Capillary Refill : Less Than 3 Seconds General Appearance: No Apparent Distress, Chronically ill, Thin Respiratory: No Respiratory Distress, Decreased Breath Sounds Cardiovascular: Regular Rate, Rhythm, No Murmur Gastrointestinal: Normal Bowel Sounds, Non Tender, Soft Extremity: Normal Inspection, No Pedal Edema Neurologic/Psychiatric: Alert, Oriented x3, Motor Weakness Skin: Normal Color, Warm/Dry Results/Procedures Lab Laboratory Tests 10/24/21 05:33 Patient resulted labs reviewed. Imaging: Reviewed Imaging Report Assessment/Plan Assessment and Plan Assess & Plan/Chief Complaint Acute on chronic respiratory failure with hypoxia Pulmonary embolism Acute DVT of subclavian and axillary vein Pneumonia Not septic Ultrasound with axillary and subclavian vein thrombosis CT showed pulmonary emboli, bibasilar consolidations Continue therapeutic Lovenox Continue Vancomycin and Zosyn for pneumonia, recently hospitalized Requiring supplemental oxygen, at baseline 3 L Atrial fibrillation Recent GI bleed Anemia Continue amiodarone and diltiazem Lovenox Obtain records from [facility] Reportedly reduced EF Obtain records Does not appear to be decompensated Tobacco abuse COPD Nicotine patch MAT protocol Debility PT/OT IRF evaluation Diagnosis/Problems Diagnosis/Problems (1) Acute on chronic respiratory failure with hypoxia Status: Acute (2) Pulmonary embolism Status: Acute Qualifiers: Chronicity: acute (3) Acute thrombosis of right subclavian vein Status: Acute (4) Acute deep vein thrombosis (DVT) of axillary vein of right upper extremity Status: Acute (5) Pneumonia Status: Acute (6) Paroxysmal atrial fibrillation Status: Chronic (7) History of GI bleed Status: Chronic (8) Anemia Status: Chronic (9) Tobacco abuse Status: Chronic (10) CHF (congestive heart failure) Status: Chronic (11) History of recent hospitalization Status: Acute (12) Debility Status: Acute BRADY QUIROZ MD Oct 24, 2021 13:04
[2021-10-24 16:30] VITALS: BP 114/58
[2021-10-24] MEDS: VANCOMYCIN 1 GM/NS 250 ML IVPB IV SCH ×2 (16:34)
[2021-10-24] MEDS: LACTATED RINGERS 1,000 ML IV SCH ×2 (16:34→21:24)
[2021-10-24] MEDS: TAMSULOSIN 0.4 MG (FLOMAX) CAP PO SCH (18:22)
[2021-10-24] MEDS: ALPRAZolam 0.25 MG (XANAX) TAB PO PRN (20:21)
[2021-10-24] MEDS: MIRTAZAPINE 15 MG (REMERON) TAB PO SCH (20:21)
[2021-10-24 20:24] VITALS: BP 118/61
[2021-10-25] VITALS: BP 97/53
[2021-10-25] MEDS: RT-ALBUTEROL/IPRATROPIUM 3 ML (DUONEB) VIAL IH SCH ×4 (02:35→20:42)
[2021-10-25] MEDS: VANCOMYCIN 1 GM/NS 250 ML IVPB IV SCH ×2 (03:19)
[2021-10-25 04:00] VITALS: BP 103/49
[2021-10-25] MEDS: LEVOTHYROXINE 100 MCG (LEVOTHROID) TAB PO SCH (05:58)
[2021-10-25] MEDS: PIPERACILLIN SODIUM/TAZOBACTAM 4.5 GM in NS (IVPB) 100 ML IV SCH ×3 (05:58→21:40)
[2021-10-25] MEDS: PANTOPRAZOLE 40 MG (PROTONIX) TAB PO SCH ×2 (05:58→15:33)
[2021-10-25 06:30] LABS: BASOPHILS % (AUTO) 0 % (0-10); EOSINOPHILS % (AUTO) 1 % (0-10); HEMATOCRIT 26 % (40-54); LYMPHOCYTES # (AUTO) 2.9 10^3/uL (1.0-4.0); LYMPHOCYTES % (AUTO) 57 % (12-44); MEAN CORPUSCULAR HEMOGLOBIN 29 pg (25-34); MEAN CORPUSCULAR HGB CONC 31 g/dL (32-36); MEAN CORPUSCULAR VOLUME 94 fL (80-99); MEAN PLATELET VOLUME 9.9 fL (9.0-12.2); MONOCYTES # (AUTO) 0.5 10^3/uL (0.0-1.0); MONOCYTES % (AUTO) 9 % (0-12); NEUTROPHILS # (AUTO) 1.7 10^3/uL (1.8-7.8); NEUTROPHILS % (AUTO) 33 % (42-75); PLATELET COUNT 171 10^3/uL (130-400); WHITE BLOOD COUNT 5.1 10^3/uL (4.3-11.0)
[2021-10-25 06:45] LABS: POTASSIUM 4.9 MMOL/L (3.6-5.0)
[2021-10-25 06:47] LABS: CALCIUM 7.9 MG/DL (8.5-10.1)
[2021-10-25 06:51] LABS: CREATININE SERUM 0.69 MG/DL (0.60-1.30)
[2021-10-25 08:00] VITALS: BP 129/60
--- NOTE | 2021-10-25 08:53 | Physical Therapy Daily Note ---
PT Daily Note-Current Subjective Patient presented laying in bed and agreed to participate in physical therapy. Mental Status Patient Orientation: Person Attachments: Oxygen (4L NC), IV Transfers SCALE: Activities may be completed with or without assistive devices. 0-Ccfctfqctr-bsvccau completes the activity by him/herself with no assistance from a helper. 5-Set-up or Clean-up Assistance-helper sets up or cleans up; patient completes activity. Brea assists only prior to or following the activity. 4-Supervision or Touching Assistance-helper provides verbal cues and/or touching/steadying and/or contact guard assistance as patient completes activity. Assistance may be provided throughout the activity or intermittently. 3-Partial/Moderate Assistance-helper does LESS THAN HALF the effort. Brea lifts, holds or supports trunk or limbs, but provides less than half the effort. 2-Substantial/Maximal Assistance-helper does MORE THAN HALF the effort. Brea lifts or holds trunk or limbs and provides more than half the effort. 9-Rstjvbtkg-rigqqs does ALL the effort. Patient does none of the effort to complete the activity. Or, the assistance of 2 or more helpers is required for the patient to complete the activity. If activity was not attempted, code reason: 7-Patient Refused. 9-Not Applicable-not attempted and the patient did not perform the activity before the current illness, exacerbation or injury. 10-Not Attempted due to Environmental Limitations-(lack of equipment, weather restraints, etc.). 88-Not Attempted due to Medical Conditions or Safety Concerns. Lying to Sitting/Side of Bed(Q: 3 Sit to Stand (QC): 3 Chair/Wce-cf-Ekytl Xfer(QC): 3 Patient required min/mod assist for all transfers as well as cues for leaning forward. Patient was very retropulsive when coming to a stand Weight Bearing Right Lower Extremity: Right Full Weight Bearing Left Lower Extremity: Left Full Weight Bearing Gait Training Does the Patient Walk?: Yes Distance: 50 Walk 10 feet (QC): 3 Walk 50 ft with 2 Turns(QC): 3 Gait Assistive Device: FWW Patient ambulated with FWW and min/mod assistance. Patient required verbal cues to lean forward when standing due to retropulsion. Patient reported fatigue and weakness while ambulating. Assessment Patient performed bed mobility and ambulation during therapy session. Patient is min/mod assist due to retropulsion when coming to a stand or performing standing balance. Patient reports significant weakness with ambulation. Patient ambulated with shuffled gait pattern and required cues to continue to walk and move forward. PT Short Term Goals Short Term Goals Time Frame: Nov 06, 2021 Roll Left & Right: 4 Sit to lyin Lying to sitting on side of be: 4 Sit to stand: 4 Chair/ohp-uh-lmydm transfer: 4 Walk 10 feet: 4 Walk 50 feet with two turns: 4 PT Detention Goals Milk Pickup Truck Driver Goals PT Detention Goals Time Frame: Nov 20, 2021 Roll Left & Right (QC): 6 Sit to Lying (QC): 6 Lying-Sitting on Side/Bed(QC): 6 Sit to Stand (QC): 6 Chair/Zyv-qf-Fohtb Xfer(QC): 6 Walk 10 feet (QC): 6 Walk 50ft with 2 Turns (QC): 6 PT Plan Problem List Problem List: Activity Tolerance, Functional Strength, Safety, Balance, Gait, Transfer, Bed Mobility, ROM Treatment/Plan Treatment Plan: Continue Plan of Care Treatment Plan: Bed Mobility, Education, Functional Activity Luana, Functional Strength, Gait, Safety, Therapeutic Exercise, Transfers Treatment Duration: Nov 20, 2021 Frequency: 6 times per week Estimated Hrs Per Day: .25 hour per day Patient and/or Family Agrees t: Yes Time/GCodes Time In: 822 Time Out: 837 Total Billed Treatment Time: 15 Total Billed Treatment 1 Visit Gait 15 min CHELE AC PT Oct 25, 2021 08:53
--- NOTE | 2021-10-25 09:43 | Speech Therapy Progress Note ---
Therapy Progress Note 0900: Speech pathology visited with the treating RN regarding the "STO" consult received on 10/22/2021. The clinician was attempting to clarify the order as a speech, language, and cognition evaluation versus a clinical bedside swallowing assessment. Per RN, the patient is receiving a regular consistency diet with thin liquids and displays no s/s of suspected aspiration with PO intake ("The patient eats [employer] without any difficulty."). Additionally, the RN stated the patient is able to fluently communicate his wants and needs and does not appear to be displaying difficulty with language, speech, or cognition. Due to the lack of swallowing, language, speech, or cognition needs per RN, ST will cancel the consult at this time. If speech language pathology needs are present throughout the stay, please re-consult or contact speech pathology. Thank you. GLORY HUNT Oct 25, 2021 09:43
[2021-10-25] MEDS: ENOXAPARIN 60 MG/0.6 ML (LOVENOX) SYR SC SCH ×2 (09:46→21:39)
[2021-10-25] MEDS: AMIODARONE 200 MG (CORDARONE) TAB PO SCH (09:46)
[2021-10-25] MEDS: NICOTINE PATCH REMOVAL TP SCH (09:46)
[2021-10-25] MEDS: NICOTINE 14 MG (NICODERM) PATCH TD SCH (09:46)
[2021-10-25 10:24] LABS: ALBUMIN 2.3 GM/DL (3.2-4.5); BILIRUBIN,DIRECT 0.1 MG/DL (0.0-0.3); BILIRUBIN,INDIRECT 0.1 MG/DL; BILIRUBIN,TOTAL 0.2 MG/DL (0.1-1.0); TOTAL PROTEIN 5.4 GM/DL (6.4-8.2)
--- NOTE | 2021-10-25 11:14 | Progress Note - Hospitalist ---
COLTEN ALMAGUER U 10/25/21 1114: Subjective HPI/CC On Admission Anthony Trotter is a 71 year old male with PMH atrial fibrillation, recent GI bleed, HLD, COPD, tobacco abuse, who presented with shortness of breath. He was recently discharged from [facility] after a nearly two month hospitalization. He reports that he was treated for pneumonia, COVID, and GI bleeding. He was debilitated and had to move in with his daughter in [place] on discharge. He had previously been living at his home by himself in [place]. He had been home about ten days prior to coming into our ER. His daughter was concerned that he was developing pneumonia. He was set up with home oxygen on discharge and was supposed to be on 3 L, but he says after a week of being at home they came and took his oxygen tank. He has also had right arm swelling where a PICC line had been during his hospital stay. Subjective/Events-last exam Mr. Trotter is sitting comfortably in his chair this morning. He only complains of some abdominal pain rating it as a 5/10. He has been eating meals but reports having lost a lot of weight over the last couple months due to illnesses and hospitalizations. He is able to work with PT/OT in hopes of improving his strength. Review of Systems General: No Chills, No Night Sweats HEENT: No Head Aches, No Sore Throat Pulmonary: Dyspnea, Cough Cardiovascular: No: Chest Pain, Palpitations Gastrointestinal: No: Nausea, Vomiting, Diarrhea, Constipation Neurological: Weakness; No: Numbness, Confusion Objective Exam Vital Signs Vital Signs Date Time Temp Pulse Resp B/P (MAP) Pulse Ox O2 Delivery O2 Flow Rate FiO2 10/25/21 10:55 96 Nasal Cannula 4.00 10/25/21 08:00 37.0 59 18 129/60 (83) Capillary Refill : Less Than 3 Seconds General Appearance: Chronically ill HEENT: Moist Mucous Membranes Neck: Full Range of Motion, Normal Inspection, Non Tender Respiratory: Chest Non Tender, Normal Breath Sounds, No Accessory Muscle Use Cardiovascular: No Gallop, No Murmur, Normal Peripheral Pulses Gastrointestinal: Normal Bowel Sounds, No Organomegaly, No Pulsatile Mass, Soft Extremity: Normal Inspection, Normal Range of Motion Neurologic/Psychiatric: Alert, Oriented x3 Skin: Normal Color, Warm/Dry Results/Procedures Lab Laboratory Tests 10/25/21 05:59 Patient resulted labs reviewed. Assessment/Plan Assessment and Plan Assess & Plan/Chief Complaint Acute on chronic mixed respiratory failure - CTA 10/22 showed PE - CXR 10/22 showed bilateral infiltrates and L pleural effusion - hx of COPD - therapeutic lovenox - vanc/zosyn day 3 - BC x2 show NGTD - stop IVF today COPD - continue duoneb - baseline 3L per previous discharge but no O2 at home Afib - amiodorone - diltiazem, watch for low HR - lovenox Acute DVT of R subclavian and axillary veins - right arm swelling near PICC line - confirmed on US - continue therapeutic lovenox Debility - PT/OT - IRF eval Anemia - recent hospitalization with GI bleed - unknown source - continue to monitor SIVAN NAVAS DO 10/26/21 0510: Subjective HPI/CC On Admission Date Seen by Provider: Oct 25, 2021 Time Seen by Provider: 10:00 Subjective/Events-last exam Pt doing a little better In-patient rehab referral Hep locking IV fluid He is eating and drinking Spent 2 months at [facility] for Covid and GI bleed He does have a DVT in the subclavian He has a history of Afib Pneumonia is being treated Review of Systems General: Fatigue, Malaise Pulmonary: Dyspnea Objective Exam General Appearance: No Apparent Distress, WD/WN, Chronically ill Respiratory: Lungs Clear, Normal Breath Sounds Cardiovascular: Regular Rate, Rhythm Neurologic/Psychiatric: Alert, Oriented x3, Depressed Affect Assessment/Plan Assessment and Plan Assess & Plan/Chief Complaint Inpatient rehab eval Monitor hemoglobin Maintain Lovenox due to recent GI bleed shorter acting than oral anticoagulation Supervisory-Addendum Brief Verification & Attestation Participated in pt care: history, MDM, physical Personally performed: exam, history, MDM, supervision of care Care discussed with: Medical Student Procedures: n/a Results interpretation: Verified all documentation Verification and Attestation of Medical Student E/M Service A medical student performed and documented this service in my presence. I reviewed and verified all information documented by the medical student and made modifications to such information, when appropriate. I personally performed the physical exam and medical decision making. Sivan Navas, Oct 26, 2021,05:10 COLTEN ALMAGUER Oct 25, 2021 11:14 SIVAN NAVAS DO Oct 26, 2021 05:10
[2021-10-25] MEDS ORDERED: OMEP-401 PO (12:34)
[2021-10-25] MEDS ORDERED: DILT90TA PO (12:34)
[2021-10-25] MEDS ORDERED: POLY17PO6 PO (12:34)
[2021-10-25] MEDS ORDERED: LEVO200T6 PO (12:34)
[2021-10-25] MEDS ORDERED: ATOR20TA66 PO (12:34)
[2021-10-25] MEDS ORDERED: MIRT45TA75 PO (12:34)
--- NOTE | 2021-10-25 14:19 | Occupational Ther Daily Note ---
OT Current Status-Daily Note Subjective Pt returning to bed with RN following toileting. Agreeable to OT Appearance Left supine in bed, all needs within reach. ADL-Treatment Therapy Code Descriptions/Definitions Functional [place] Measure: 0=Not Assessed/NA 4=Minimal Assistance 1=Total Assistance 5=Supervision or Setup 2=Maximal Assistance 6=Modified [place] 3=Moderate Assistance 7=Complete IndependenceSCALE: Activities may be completed with or without assistive devices. 7-Pslwqauaan-foonwiv completes the activity by him/herself with no assistance from a helper. 5-Set-up or Clean-up Assistance-helper sets up or cleans up; patient completes activity. [place] assists only prior to or following the activity. 4-Supervision or Touching Assistance-helper provides verbal cues and/or touching/steadying and/or contact guard assistance as patient completes activity. Assistance may be provided throughout the activity or intermittently. 3-Partial/Moderate Assistance-helper does LESS THAN HALF the effort. [place] lifts, holds or supports trunk or limbs, but provides less than half the effort. 2-Substantial/Maximal Assistance-helper does MORE THAN HALF the effort. [place] lifts or holds trunk or limbs and provides more than half the effort. 0-Bhtwoggmu-aeosmd does ALL the effort. Patient does none of the effort to complete the activity. Or, the assistance of 2 or more helpers is required for the patient to complete the activity. If activity was not attempted, code reason: 7-Patient Refused. 9-Not Applicable-not attempted and the patient did not perform the activity before the current illness, exacerbation or injury. 10-Not Attempted due to Environmental Limitations-(lack of equipment, weather restraints, etc.). 88-Not Attempted due to Medical Conditions or Safety Concerns. Other Treatment Discussion/education on rehab expectations. Pt also participated in RUE AROM exercises with goal to reduce edema present from elbow to fingers. No DVT pres ent on ultrasound. OT educated pt on gentle retrograde massage and elevating extremity on pillow. AAROM at shoulder secondary to weakness. 10x1 in all planes. RUE only. Education OT Patient Education: Correct positioning, Exercise program, Modified ADL techniques, Rehab process Teaching Recipient: Patient Teaching Methods: Demonstration, Discussion Response to Teaching: Verbalize Understanding, Return Demonstration OT Detention Goals Detention Goals Time Frame: Nov 06, 2021 Eating (QC): 6 Oral Hygiene (QC): 5 Toileting Hygiene (QC): 4 Shower/Bathe Self (QC): 3 Upper Body Dressing (QC): 4 Lower Body Dressing (QC): 3 On/Off Footwear (QC): 3 Additional Goals: 1-Demonstrate ADL Tasks, 2-Verbalize Understanding, 3- ImproveStrength/Luana 1=Demonstrate adherence to instructed precautions during ADL tasks. 2=Patient will verbalize/demonstrate understanding of assistive devices/modifications for ADL. 3=Patient will improve strength/tolerance for activity to enable patient to perform ADL's. OT Education/Plan Problem List/Assessment Assessment: Decreased Activ Tolerance, Decreased UE Strength, Edema, Impaired Funct Balance, Impaired I ADL's, Impaired Self-Care Skills, Restricted Funct UE ROM Discharge Recommendations Plan/Recommendations: Continue POC Therapy Discharge Recommendati: Post Acute OT Treatment Plan/Plan of Care Treatment,Training & Education: Yes Patient would benefit from OT for education, treatment and training to promote independence in ADL's, mobility, safety and/or upper extremity function for ADL's. Plan of Care: ADL Retraining, Functional Mobility, UE Funct Exercise/Act Treatment Duration: Nov 06, 2021 Frequency: 3 times per week (3-5 times per week) Estimated Hrs Per Day: .25 hour per day Rehab Potential: Fair Time/GCodes Start Time: 14:00 Stop Time: 14:12 Total Time Billed (hr/min): 12 Billed Treatment Time 1 visit EX Shanelle Saleem OT Oct 25, 2021 14:19
[2021-10-25 15:53] VITALS: BP 135/59
--- NOTE | 2021-10-25 18:26 | Wound Care Assessment ---
Wound Care Assessment Date Seen by Provider: Oct 25, 2021 Time Seen by Provider: 18:17 Chief Complaint 1. Stage 3 pressure ulcers to R. upper back and sacrum 2. Stage 2 pressure ulcer R. heel HPI This pleasant 71 year old gentlemant presents to the hospital with pressure injuries to numerous areas. He is currently on Vacomycin and Zosyn. He is a smoker. He has a h/o PEM, atrial fibrillation, recent GIB and COPD. He remains anemic on this admission. His wounds are currently being dressed with AgAlginate HF (to open wounds) with allevyn BFD atop. We did also continue BFD to left heel for prevention of new pressure injury. PEM, atrial fibrillation, COPD, h/o GIB, anemia Smoking Status: Current Everyday Smoker Review of Systems Neurological: Weakness Exam Vital Signs Date Time Temp Pulse Resp B/P (MAP) Pulse Ox O2 Delivery O2 Flow Rate FiO2 10/25/21 15:53 36.7 59 19 135/59 (84) 95 Nasal Cannula 4.00 Capillary Refill : Less Than 3 Seconds General Appearance: WD/WN, no apparent distress Cardiovascular: no edema Respiratory: no respiratory distress, no accessory muscle use Extremities: no pedal edema Neurologic/Psychiatric: alert, normal mood/affect, oriented x 3 Skin: normal color, warm/dry 1. R. upper back: The epithelialization is none. There is no tunneling or undermining. Drainage is medium and serous, granulation is small and pink, necrotic is large and slough. Margins show epibole 2. Sacrum: The epithelialization is none. There is no tunneling or undermining. Drainage is medium and serosanguinous, granulation is medium and pink, necrotic is medium and slough. Margins show epibole 3. R. Heel: The epithelialization is none, There is no tunneling or undermining, drainage is medium and serosanguinous, granulation is small and pink, necrotic is large and slough, margins are flat. Results Laboratory Tests 10/25/21 05:59: White Blood Count 5.1, Red Blood Count 2.79L, Hemoglobin 8.0L, Hematocrit 26L, Mean Corpuscular Volume 94, Mean Corpuscular Hemoglobin 29, Mean Corpuscular Hemoglobin Concent 31L, Red Cell Distribution Width 18.4H, Platelet Count 171, Mean Platelet Volume 9.9, Immature Granulocyte % (Auto) 0, Neutrophils (%) (Auto) 33L, Lymphocytes (%) (Auto) 57H, Monocytes (%) (Auto) 9, Eosinophils (%) (Auto) 1, Basophils (%) (Auto) 0, Neutrophils # (Auto) 1.7L, Lymphocytes # (Auto) 2.9, Monocytes # (Auto) 0.5, Eosinophils # (Auto) 0.0, Basophils # (Auto) 0.0, Immature Granulocyte # (Auto) 0.0, Sodium Level 135, Potassium Level 4.9, Chloride Level 104, Carbon Dioxide Level 25, Anion Gap 6, Blood Urea Nitrogen 12, Creatinine 0.69, Estimat Glomerular Filtration Rate 98, BUN/Creatinine Ratio 17, Glucose Level 86, Calcium Level 7.9L, Total Bilirubin 0.2, Direct Bilirubin 0.1, Indirect Bilirubin 0.1, Aspartate Amino Transf (AST/SGOT) 20, Alanine Aminotransferase (ALT/SGPT) 23, Alkaline Phosphatase 81, Total Protein 5.4L, Albumin 2.3L Microbiology 10/22/21 Blood Culture - Preliminary, Resulted No growth Assessment/Plan/Dx Assessment: 1. Stage 3 pressure ulcer R. upper back 2. Stage 3 pressure ulcer Sacrum 3. Stage 2 pressure ulcer R. heel 4. Anemia Plan: 1. Cleanse all open wounds with wound cleanser daily 2. Apply silver alginate hydrofiber to wound bed 3. Cover with bordered foam dressing 4. Change daily 5. Defer anemia to primary management. 6. Frequent position changes to alleviate pressure SALVATORE REID MD Oct 25, 2021 18:26
[2021-10-25] MEDS: TAMSULOSIN 0.4 MG (FLOMAX) CAP PO SCH (18:35)
[2021-10-25] MEDS: MIRTAZAPINE 15 MG (REMERON) TAB PO SCH (21:39)
[2021-10-25] MEDS: ALPRAZolam 0.25 MG (XANAX) TAB PO PRN (21:43)
[2021-10-26 00:16] VITALS: BP 125/53
[2021-10-26] MEDS: RT-ALBUTEROL/IPRATROPIUM 3 ML (DUONEB) VIAL IH SCH (02:38)
[2021-10-26] MEDS ORDERED: ALPRAZolam 0.25 MG (XANAX) TAB PO PRN (05:45)
[2021-10-26] MEDS: PIPERACILLIN SODIUM/TAZOBACTAM 4.5 GM in NS (IVPB) 100 ML IV SCH ×3 (06:04→22:28)
[2021-10-26] MEDS: PANTOPRAZOLE 40 MG (PROTONIX) TAB PO SCH ×4 (06:04→15:47)
[2021-10-26] MEDS: LEVOTHYROXINE 100 MCG (LEVOTHROID) TAB PO SCH (06:04)
[2021-10-26 06:27] LABS: ALBUMIN 2.6 GM/DL (3.2-4.5)
[2021-10-26 06:28] LABS: CALCIUM 8.4 MG/DL (8.5-10.1)
[2021-10-26 06:29] LABS: TOTAL PROTEIN 5.8 GM/DL (6.4-8.2)
[2021-10-26 06:31] LABS: BILIRUBIN,TOTAL 0.3 MG/DL (0.1-1.0)
[2021-10-26 06:33] LABS: CREATININE SERUM 0.63 MG/DL (0.60-1.30)
[2021-10-26 07:07] LABS: BASOPHILS % (AUTO) 0 % (0-10); EOSINOPHILS % (AUTO) 1 % (0-10); HEMATOCRIT 27 % (40-54); HEMOGLOBIN 8.2 g/dL (13.3-17.7); LYMPHOCYTES # (AUTO) 3.3 10^3/uL (1.0-4.0); LYMPHOCYTES % (AUTO) 60 % (12-44); MEAN CORPUSCULAR HEMOGLOBIN 28 pg (25-34); MEAN CORPUSCULAR HGB CONC 30 g/dL (32-36); MEAN CORPUSCULAR VOLUME 94 fL (80-99); MEAN PLATELET VOLUME 9.7 fL (9.0-12.2); MONOCYTES # (AUTO) 0.6 10^3/uL (0.0-1.0); MONOCYTES % (AUTO) 10 % (0-12); NEUTROPHILS # (AUTO) 1.5 10^3/uL (1.8-7.8); NEUTROPHILS % (AUTO) 28 % (42-75); PLATELET COUNT 176 10^3/uL (130-400); WHITE BLOOD COUNT 5.4 10^3/uL (4.3-11.0)
[2021-10-26 07:45] VITALS: BP 117/55
[2021-10-26] MEDS: DOCUSATE SODIUM 100 MG (COLACE) CAP PO SCH (09:00)
[2021-10-26] MEDS: NICOTINE PATCH REMOVAL TP SCH (09:00)
[2021-10-26] MEDS ORDERED: NON-FORMULARY MEDICATION 1 EA EA (Levothyroxine Sodium 200 MCG) PO SCH (09:00)
--- NOTE | 2021-10-26 09:52 | Physical Therapy Daily Note ---
PT Daily Note-Current Subjective Patient in recliner pre tx, agrees to PT, has 4/10 pain in his chest. Appearance Patient in recliner post tx with nurse call, phone, tray, all needs met. Mental Status Patient Orientation: Person, Place, Situation Attachments: Oxygen, IV Transfers SCALE: Activities may be completed with or without assistive devices. 4-Vhxosyewcy-ciqhokf completes the activity by him/herself with no assistance from a helper. 5-Set-up or Clean-up Assistance-helper sets up or cleans up; patient completes activity. [place] assists only prior to or following the activity. 4-Supervision or Touching Assistance-helper provides verbal cues and/or touching/steadying and/or contact guard assistance as patient completes activity. Assistance may be provided throughout the activity or intermittently. 3-Partial/Moderate Assistance-helper does LESS THAN HALF the effort. [place] lifts, holds or supports trunk or limbs, but provides less than half the effort. 2-Substantial/Maximal Assistance-helper does MORE THAN HALF the effort. [place] lifts or holds trunk or limbs and provides more than half the effort. 6-Aycrrbnii-tzefjk does ALL the effort. Patient does none of the effort to complete the activity. Or, the assistance of 2 or more helpers is required for the patient to complete the activity. If activity was not attempted, code reason: 7-Patient Refused. 9-Not Applicable-not attempted and the patient did not perform the activity before the current illness, exacerbation or injury. 10-Not Attempted due to Environmental Limitations-(lack of equipment, weather restraints, etc.). 88-Not Attempted due to Medical Conditions or Safety Concerns. Sit to Stand (QC): 3 Chair/Vly-il-Zskpg Xfer(QC): 3 Weight Bearing Right Lower Extremity: Right Full Weight Bearing Left Lower Extremity: Left Full Weight Bearing Gait Training Distance: 50' Walk 10 feet (QC): 3 Walk 50 ft with 2 Turns(QC): 3 Gait Persons Needed: 1 Gait Assistive Device: FWW Exercises Seated Therapy Exercises: Ankle pumps, Long arc quads Seated Reps: 20 Treatments transfers, ambulation, LE strengthening Assessment Current Status: Poor Progress Patient was pretty shaky with ambulation, he was slightly retropulsive mostly with turning, enough to need assist from therapist to maintain balance. PT Short Term Goals Short Term Goals Time Frame: Nov 06, 2021 Roll Left & Right: 4 Sit to lyin Lying to sitting on side of be: 4 Sit to stand: 4 Chair/elf-cg-cwqpi transfer: 4 Walk 10 feet: 4 Walk 50 feet with two turns: 4 PT Hospital Receptionist Goals Senior Care Goals PT Senior Care Goals Time Frame: Nov 20, 2021 Roll Left & Right (QC): 6 Sit to Lying (QC): 6 Lying-Sitting on Side/Bed(QC): 6 Sit to Stand (QC): 6 Chair/Cgx-hk-Fsayf Xfer(QC): 6 Walk 10 feet (QC): 6 Walk 50ft with 2 Turns (QC): 6 PT Plan Problem List Problem List: Activity Tolerance, Functional Strength, Safety, Balance, Gait, Transfer, Bed Mobility, ROM Treatment/Plan Treatment Plan: Continue Plan of Care Treatment Plan: Bed Mobility, Education, Functional Activity Luana, Functional Strength, Gait, Safety, Therapeutic Exercise, Transfers Treatment Duration: Nov 20, 2021 Frequency: 6 times per week Estimated Hrs Per Day: .25 hour per day Patient and/or Family Agrees t: Yes Safety Risks/Education Patient Education: Gait Training, Transfer Techniques, Correct Positioning, Safety Issues Teaching Recipient: Patient Teaching Methods: Demonstration, Discussion Response to Teaching: Reinforcement Needed Time/GCodes Time In: 933 Time Out: 943 Total Billed Treatment Time: 10 Total Billed Treatment 1 visit FA ALFRED SAHU PT Oct 26, 2021 09:52
[2021-10-26] MEDS: CYANOCOBALAMIN 1,000 MCG (VITAMIN B-12) TABLET PO SCH (10:14)
[2021-10-26] MEDS: VITAMIN E 180 MG (400 UNITS) CAP PO SCH (10:14)
[2021-10-26] MEDS: NICOTINE 14 MG (NICODERM) PATCH TD SCH (10:14)
[2021-10-26] MEDS: AMIODARONE 200 MG (CORDARONE) TAB PO SCH (10:14)
[2021-10-26] MEDS: ENOXAPARIN 60 MG/0.6 ML (LOVENOX) SYR SC SCH ×2 (10:14→20:52)
[2021-10-26] MEDS: IRON SUCROSE 200 MG/10 ML (VENOFER) VIAL IV SCH (10:26)
[2021-10-26] MEDS: UMECLIDINIUM BROMIDE (INCRUSE ELLIPTA) 7'S IH SCH (10:41)
[2021-10-26] MEDS: RT-ALBUTEROL HFA 8.5 GM INHALER IH SCH ×3 (10:41→21:32)
[2021-10-26] MEDS: ACETAMINOPHEN 500 MG TAB (TYLENOL) PO PRN (11:18)
--- NOTE | 2021-10-26 11:21 | Progress Note - Hospitalist ---
COLTEN ALMAGUER U 10/26/21 1121: Subjective HPI/CC On Admission Date Seen by Provider: Oct 26, 2021 Time Seen by Provider: 10:00 Anthony Trotter is a 71 year old male with PMH atrial fibrillation, recent GI bleed, HLD, COPD, tobacco abuse, who presented with shortness of breath. He was recently discharged from [facility] after a nearly two month hospitalization. He reports that he was treated for pneumonia, COVID, and GI bleeding. He was debilitated and had to move in with his daughter in [place] on discharge. He had previously been living at his home by himself in [place]. He had been home about ten days prior to coming into our ER. His daughter was concerned that he was developing pneumonia. He was set up with home oxygen on discharge and was supposed to be on 3 L, but he says after a week of being at home they came and took his oxygen tank. He has also had right arm swelling where a PICC line had been during his hospital stay. Subjective/Events-last exam Patient is sitting comfortably in his chair. He still feels weak and short of breath. He has been able to eat and continues to work with PT/OT to gain some strength back. Review of Systems General: No Chills, No Night Sweats HEENT: No Head Aches, No Visual Changes Pulmonary: No Dyspnea; Cough Cardiovascular: No: Chest Pain, Palpitations Gastrointestinal: Diarrhea; No: Nausea, Vomiting, Constipation, Melena, He [place] Genitourinary: No Dysuria, No Hematuria Neurological: No: Numbness, Incoordination Objective Exam Vital Signs Vital Signs Date Time Temp Pulse Resp B/P (MAP) Pulse Ox O2 Delivery O2 Flow Rate FiO2 10/26/21 10:45 Nasal Cannula 4.00 10/26/21 10:41 97 10/26/21 07:45 36.5 59 20 117/55 (75) Capillary Refill : Less Than 3 Seconds General Appearance: No Apparent Distress, Thin HEENT: PERRL/EOMI, Normal ENT Inspection Neck: Full Range of Motion, Normal Inspection, Non Tender Respiratory: Chest Non Tender, Lungs Clear, Normal Breath Sounds, No Accessory Muscle Use Cardiovascular: No Gallop, No Murmur, Irregularly Irregular Gastrointestinal: Normal Bowel Sounds, Non Tender, Soft Back: Normal Inspection Extremity: Normal Inspection, Normal Range of Motion Neurologic/Psychiatric: Alert, Oriented x3 Skin: Normal Color, Warm/Dry Results/Procedures Lab Laboratory Tests 10/26/21 05:57 10/26/21 06:41 Patient resulted labs reviewed. Assessment/Plan Assessment and Plan Assess & Plan/Chief Complaint Acute on chronic mixed respiratory failure - CTA 10/22 showed PE - CXR 10/22 showed bilateral infiltrates and L pleural effusion - hx of COPD - therapeutic lovenox - vanc/zosyn day 4 - BC x2 show NGTD COPD - continue duoneb - baseline 3L per previous discharge but no O2 at home Afib - amiodorone - diltiazem, watch for low HR - lovenox Acute DVT of R subclavian and axillary veins - right arm swelling near PICC line - confirmed on US - continue therapeutic lovenox Debility - PT/OT - IRF eval Iron Deficiency Anemia - recent hospitalization with GI bleed, on ppi - low iron - starting venofer today HLD - atorvastatin 10 SIVAN NAVAS DO 10/27/21 0533: Subjective Subjective/Events-last exam Pt doing about the same 4L of oxygen maintained Iron infusion maintained Diarrhea about once a day Hemoglobin stable at 8.2 Continues on Vanc and Zosyn Insurance denied in-patient rehab Review of Systems General: Fatigue, Malaise Pulmonary: Dyspnea Objective Exam General Appearance: No Apparent Distress, WD/WN, Chronically ill Respiratory: Lungs Clear, Normal Breath Sounds, Decreased Breath Sounds Cardiovascular: Regular Rate, Rhythm Assessment/Plan Assessment and Plan Assess & Plan/Chief Complaint Supportive care Inpatient rehab declined per insurance Supervisory-Addendum Brief Verification & Attestation Participated in pt care: history, MDM, physical Personally performed: exam, history, MDM, supervision of care Care discussed with: Medical Student Procedures: n/a Results interpretation: Verified all documentation Verification and Attestation of Medical Student E/M Service A medical student performed and documented this service in my presence. I reviewed and verified all information documented by the medical student and made modifications to such information, when appropriate. I personally performed the physical exam and medical decision making. Sivan Navas, Oct 27, 2021,05:31 COLTEN ALMAGUER Oct 26, 2021 11:21 SIVAN NAVAS DO Oct 27, 2021 05:33
--- NOTE | 2021-10-26 11:59 | Occupational Ther Daily Note ---
OT Current Status-Daily Note Subjective Pt reports 4/10 pain in abdomen. RN aware. Appearance Pt left sitting in recliner, all needs within reach, family in room at OT departure. ADL-Treatment Therapy Code Descriptions/Definitions Functional [place] Measure: 0=Not Assessed/NA 4=Minimal Assistance 1=Total Assistance 5=Supervision or Setup 2=Maximal Assistance 6=Modified [place] 3=Moderate Assistance 7=Complete IndependenceSCALE: Activities may be completed with or without assistive devices. 2-Twisnnmmnq-yfwqwpm completes the activity by him/herself with no assistance from a helper. 5-Set-up or Clean-up Assistance-helper sets up or cleans up; patient completes activity. [place] assists only prior to or following the activity. 4-Supervision or Touching Assistance-helper provides verbal cues and/or touching/steadying and/or contact guard assistance as patient completes activity. Assistance may be provided throughout the activity or intermittently. 3-Partial/Moderate Assistance-helper does LESS THAN HALF the effort. [place] lifts, holds or supports trunk or limbs, but provides less than half the effort. 2-Substantial/Maximal Assistance-helper does MORE THAN HALF the effort. [place] lifts or holds trunk or limbs and provides more than half the effort. 8-Jupmgdbwl-agwoku does ALL the effort. Patient does none of the effort to complete the activity. Or, the assistance of 2 or more helpers is required for the patient to complete the activity. If activity was not attempted, code reason: 7-Patient Refused. 9-Not Applicable-not attempted and the patient did not perform the activity be fore the current illness, exacerbation or injury. 10-Not Attempted due to Environmental Limitations-(lack of equipment, weather restraints, etc.). 88-Not Attempted due to Medical Conditions or Safety Concerns. Other Treatment Pt politely declines adls this am. Family reports pt has gone several weeks without a shower but also verbalize that they want to help when given. If pt is agreeable and time is available, OT can assist with shower during next session. Pt participated in UE exercises while seated in chair. Decreased swelling notable in RUE when compared to previous date. OT continued to encourage AROM exercises and elevating extremity on pillow. AAROM at R shoulder secondary to weakness. 10x1 in all planes. Education OT Patient Education: Correct positioning, Energy conservation, Progress toward Goal/Update tx plan, Purpose of tx/functional activities Teaching Recipient: Patient, Family Teaching Methods: Discussion Response to Teaching: Verbalize Understanding OT Long-Term Goals Spr[employer] Crew Goals Time Frame: Nov 06, 2021 Eating (QC): 6 Oral Hygiene (QC): 5 Toileting Hygiene (QC): 4 Shower/Bathe Self (QC): 3 Upper Body Dressing (QC): 4 Lower Body Dressing (QC): 3 On/Off Footwear (QC): 3 Additional Goals: 1-Demonstrate ADL Tasks, 2-Verbalize Understanding, 3- ImproveStrength/Luana 1=Demonstrate adherence to instructed precautions during ADL tasks. 2=Patient will verbalize/demonstrate understanding of assistive devices/modif ications for ADL. 3=Patient will improve strength/tolerance for activity to enable patient to perform ADL's. OT Education/Plan Problem List/Assessment Assessment: Decreased Activ Tolerance, Decreased UE Strength, Edema, Impaired Funct Balance, Impaired Self-Care Skills Discharge Recommendations Plan/Recommendations: Continue POC Therapy Discharge Recommendati: Bath Aide, Post Acute OT Treatment Plan/Plan of Care Treatment,Training & Education: Yes Patient would benefit from OT for education, treatment and training to promote independence in ADL's, mobility, safety and/or upper extremity function for ADL's. Plan of Care: ADL Retraining, Functional Mobility, UE Funct Exercise/Act Treatment Duration: Nov 06, 2021 Frequency: 3 times per week (3-5 times per week) Estimated Hrs Per Day: .25 hour per day Rehab Potential: Fair Time/GCodes Start Time: 11:34 Stop Time: 11:49 Total Time Billed (hr/min): 15 Billed Treatment Time 1 visit EX Shanelle Saleem OT Oct 26, 2021 11:59
[2021-10-26 15:00] VITALS: BP 117/57
[2021-10-26] MEDS: TAMSULOSIN 0.4 MG (FLOMAX) CAP PO SCH (17:32)
[2021-10-26] MEDS ORDERED: TAMSULOSIN 0.4 MG (FLOMAX) CAP PO SCH (18:00)
[2021-10-26] MEDS: AtorvaSTATin TABLET 10 MG TABLET PO SCH (20:52)
[2021-10-26] MEDS: MIRTAZAPINE 15 MG (REMERON) TAB PO SCH (20:52)
[2021-10-27 00:23] VITALS: BP 128/48
[2021-10-27] MEDS: RT-ALBUTEROL HFA 8.5 GM INHALER IH SCH ×3 (02:49→21:41)
[2021-10-27 05:57] LABS: BASOPHILS % (AUTO) 0 % (0-10); EOSINOPHILS % (AUTO) 1 % (0-10); HEMATOCRIT 26 % (40-54); HEMOGLOBIN 8.1 g/dL (13.3-17.7); LYMPHOCYTES # (AUTO) 2.5 10^3/uL (1.0-4.0); LYMPHOCYTES % (AUTO) 57 % (12-44); MEAN CORPUSCULAR HEMOGLOBIN 29 pg (25-34); MEAN CORPUSCULAR HGB CONC 31 g/dL (32-36); MEAN CORPUSCULAR VOLUME 93 fL (80-99); MEAN PLATELET VOLUME 9.8 fL (9.0-12.2); MONOCYTES # (AUTO) 0.5 10^3/uL (0.0-1.0); MONOCYTES % (AUTO) 10 % (0-12); NEUTROPHILS # (AUTO) 1.4 10^3/uL (1.8-7.8); NEUTROPHILS % (AUTO) 32 % (42-75); PLATELET COUNT 172 10^3/uL (130-400); WHITE BLOOD COUNT 4.4 10^3/uL (4.3-11.0)
[2021-10-27] MEDS: PIPERACILLIN SODIUM/TAZOBACTAM 4.5 GM in NS (IVPB) 100 ML IV SCH (05:58)
[2021-10-27] MEDS: PANTOPRAZOLE 40 MG (PROTONIX) TAB PO SCH ×4 (05:58→15:38)
[2021-10-27] MEDS: LEVOTHYROXINE 100 MCG (LEVOTHROID) TAB PO SCH (05:58)
[2021-10-27 06:07] LABS: POTASSIUM 4.7 MMOL/L (3.6-5.0)
[2021-10-27 06:09] LABS: CALCIUM 8.3 MG/DL (8.5-10.1)
[2021-10-27 06:13] LABS: CREATININE SERUM 0.7 MG/DL (0.60-1.30)
[2021-10-27 08:00] VITALS: BP 120/56
[2021-10-27] MEDS: ENOXAPARIN 60 MG/0.6 ML (LOVENOX) SYR SC SCH ×2 (08:43→20:39)
[2021-10-27] MEDS: AMIODARONE 200 MG (CORDARONE) TAB PO SCH (08:43)
[2021-10-27] MEDS: VITAMIN E 180 MG (400 UNITS) CAP PO SCH (08:43)
[2021-10-27] MEDS: CYANOCOBALAMIN 1,000 MCG (VITAMIN B-12) TABLET PO SCH (08:43)
[2021-10-27] MEDS: NICOTINE PATCH REMOVAL TP SCH (08:43)
[2021-10-27] MEDS: NICOTINE 14 MG (NICODERM) PATCH TD SCH (08:43)
[2021-10-27] MEDS: DOCUSATE SODIUM 100 MG (COLACE) CAP PO SCH (08:43)
--- NOTE | 2021-10-27 09:02 | Occupational Ther Daily Note ---
OT Current Status-Daily Note Subjective Pt denies pain, agreeable to treatment. Appearance Left sitting in recliner, all needs within reach. Mental Status/Objective Patient Orientation: Person, Place, Situation Attachments: IV ADL-Treatment Therapy Code Descriptions/Definitions Functional [place] Measure: 0=Not Assessed/NA 4=Minimal Assistance 1=Total Assistance 5=Supervision or Setup 2=Maximal Assistance 6=Modified [place] 3=Moderate Assistance 7=Complete IndependenceSCALE: Activities may be completed with or without assistive devices. 7-Tyvmonjvks-wzxlsaz completes the activity by him/herself with no assistance from a helper. 5-Set-up or Clean-up Assistance-helper sets up or cleans up; patient completes activity. [place] assists only prior to or following the activity. 4-Supervision or Touching Assistance-helper provides verbal cues and/or touching/steadying and/or contact guard assistance as patient completes activity. Assistance may be provided throughout the activity or intermittently. 3-Partial/Moderate Assistance-helper does LESS THAN HALF the effort. [place] lifts, holds or supports trunk or limbs, but provides less than half the effort. 2-Substantial/Maximal Assistance-helper does MORE THAN HALF the effort. [place] lifts or holds trunk or limbs and provides more than half the effort. 8-Xslllkhxd-speddj does ALL the effort. Patient does none of the effort to complete the activity. Or, the assistance of 2 or more helpers is required for the patient to complete the activity. If activity was not attempted, code reason: 7-Patient Refused. 9-Not Applicable-not attempted and the patient did not perform the activity before the current illness, exacerbation or injury. 10-Not Attempted due to Environmental Limitations-(lack of equipment, weather restraints, etc.). 88-Not Attempted due to Medical Conditions or Safety Concerns. Shower/Bathe Self (QC): 3 Upper Body Dressing (QC): 3 On/Off Footwear: 1 Supine>sit: SBA. Min cues for improved posture/sitting balance at EOB but no retropulsion noted this morning. Sit<>stand: min-mod a for initial boost. Pt ambulated ~5 feet to recliner, min-mod a for balance. Unsteady on feet with poor management of walker. Due to IV infusing, sponge bath performed seated in chair. Pt able to wash upper body and down to ankles without assist. Buttocks/cristofer area not addressed as pt reports he had just donned a new brief with RN assistance prior to OT arrival. Anticipate assist needed as pt requires BUE support to maintain balance. Pt is able to doff socks but requires assist to don. He reports this is baseline. New hospital gown donned with min assist. Education OT Patient Education: Correct positioning, Modified ADL techniques, Progress toward Goal/Update tx plan, Purpose of tx/functional activities, Safety issues, Transfer techniques Teaching Recipient: Patient Teaching Methods: Demonstration, Discussion Response to Teaching: Verbalize Understanding, Reinforcement Needed OT Sewage Plant Attendant Goals Sewage Plant Attendant Goals Time Frame: Nov 06, 2021 Eating (QC): 6 Oral Hygiene (QC): 5 Toileting Hygiene (QC): 4 Shower/Bathe Self (QC): 3 Upper Body Dressing (QC): 4 Lower Body Dressing (QC): 3 On/Off Footwear (QC): 3 Additional Goals: 1-Demonstrate ADL Tasks, 2-Verbalize Understanding, 3- ImproveStrength/Luana 1=Demonstrate adherence to instructed precautions during ADL tasks. 2=Patient will verbalize/demonstrate understanding of assistive devices/modifications for ADL. 3=Patient will improve strength/tolerance for activity to enable patient to perform ADL's. OT Education/Plan Problem List/Assessment Assessment: Decreased Activ Tolerance, Decreased Safety Aware, Decreased UE Strength, Impaired Funct Balance, Impaired Self-Care Skills Discharge Recommendations Plan/Recommendations: Continue POC Treatment Plan/Plan of Care Treatment,Training & Education: Yes Patient would benefit from OT for education, treatment and training to promote independence in ADL's, mobility, safety and/or upper extremity function for A DL's. Plan of Care: ADL Retraining, Functional Mobility, UE Funct Exercise/Act Treatment Duration: Nov 06, 2021 Frequency: 3 times per week (3-5 times per week) Estimated Hrs Per Day: .25 hour per day Rehab Potential: Fair Time/GCodes Start Time: 08:30 Stop Time: 08:54 Total Time Billed (hr/min): 24 Billed Treatment Time 1 visit ADL x2 Shanelle Saleem OT Oct 27, 2021 09:02
[2021-10-27] MEDS: UMECLIDINIUM BROMIDE (INCRUSE ELLIPTA) 7'S IH SCH (09:21)
[2021-10-27 09:36] VITALS: BP 120/56
--- NOTE | 2021-10-27 10:37 | Physical Therapy Daily Note ---
PT Daily Note-Current Subjective Patient presented sitting up in the chair and agreed to participate in PT. No complaints of pain. Mental Status Patient Orientation: Person, Place Attachments: Oxygen (2L NC) Transfers SCALE: Activities may be completed with or without assistive devices. 8-Yhrctcerup-gmyvbjk completes the activity by him/herself with no assistance from a helper. 5-Set-up or Clean-up Assistance-helper sets up or cleans up; patient completes activity. [place] assists only prior to or following the activity. 4-Supervision or Touching Assistance-helper provides verbal cues and/or touching/steadying and/or contact guard assistance as patient completes activity. Assistance may be provided throughout the activity or intermittently. 3-Partial/Moderate Assistance-helper does LESS THAN HALF the effort. [place] lifts, holds or supports trunk or limbs, but provides less than half the effort. 2-Substantial/Maximal Assistance-helper does MORE THAN HALF the effort. [place] lifts or holds trunk or limbs and provides more than half the effort. 0-Pecemsrqo-qisypv does ALL the effort. Patient does none of the effort to complete the activity. Or, the assistance of 2 or more helpers is required for the patient to complete the activity. If activity was not attempted, code reason: 7-Patient Refused. 9-Not Applicable-not attempted and the patient did not perform the activity before the current illness, exacerbation or injury. 10-Not Attempted due to Environmental Limitations-(lack of equipment, weather restraints, etc.). 88-Not Attempted due to Medical Conditions or Safety Concerns. Sit to Lying (QC): 4 Sit to Stand (QC): 3 Chair/Yhl-cv-Featw Xfer(QC): 4 Patient required min assist for sit to stand but was CGA for all other transfers. Weight Bearing Right Lower Extremity: Right Full Weight Bearing Left Lower Extremity: Left Full Weight Bearing Gait Training Does the Patient Walk?: Yes Distance: 50' Walk 10 feet (QC): 3 Walk 50 ft with 2 Turns(QC): 3 Gait Assistive Device: FWW Patient ambulated for 50' with FWW and min assist. Patient reported significant fatigue after ambulation. Patient had slight retroplusion upon standing. Exercises Seated Therapy Exercises: Long arc quads, Hip flexion Seated Reps: 10 Treatments Ambulation Seated Exercises Assessment Current Status: Fair Progress Patient ambulated and performed sat EOB and performed seated exercises. Patient reported significant fatigue with exercises and ambulation. Patient requested to go to bed after therapy session because his back was hurting from sitting in the chair. Patient had slight retropulsion upon standing but ambulated with min assist. Patient reported minimal dizziness with ambulation. PT Short Term Goals Short Term Goals Time Frame: Nov 06, 2021 Roll Left & Right: 4 Sit to lyin Lying to sitting on side of be: 4 Sit to stand: 4 Chair/xpn-bc-pmbye transfer: 4 Walk 10 feet: 4 Walk 50 feet with two turns: 4 PT Distribution Center Assistant Goals Distribution Center Assistant Goals PT Residential Goals Time Frame: Nov 20, 2021 Roll Left & Right (QC): 6 Sit to Lying (QC): 6 Lying-Sitting on Side/Bed(QC): 6 Sit to Stand (QC): 6 Chair/Hxd-uj-Zdncv Xfer(QC): 6 Walk 10 feet (QC): 6 Walk 50ft with 2 Turns (QC): 6 PT Plan Problem List Problem List: Activity Tolerance, Functional Strength, Safety, Balance, Gait, T estrellita, Bed Mobility, ROM Treatment/Plan Treatment Plan: Continue Plan of Care Treatment Plan: Bed Mobility, Education, Functional Activity Luana, Functional Strength, Gait, Safety, Therapeutic Exercise, Transfers Treatment Duration: Nov 20, 2021 Frequency: 6 times per week Estimated Hrs Per Day: .25 hour per day Patient and/or Family Agrees t: Yes Safety Risks/Education Patient Education: Gait Training, Reviewed Precautions, Safety Issues Teaching Recipient: Patient Teaching Methods: Discussion Time/GCodes Time In: 1007 Time Out: 1017 Total Billed Treatment Time: 10 Total Billed Treatment 1 Visit FA 10 min ALFRED FRIEND PT Oct 27, 2021 10:37
[2021-10-27] MEDS ORDERED: HYPOCHLOROUS ACID/NaCl (VASHE) 250 ML IR PRN (12:15)
--- NOTE | 2021-10-27 12:46 | Progress Note - Hospitalist ---
ALMAGUERMYRNA LEONCOLTEN U 10/27/21 1246: Subjective HPI/CC On Admission Date Seen by Provider: Oct 27, 2021 Time Seen by Provider: 11:00 Anthony Trotter is a 71 year old male with PMH atrial fibrillation, recent GI bleed, HLD, COPD, tobacco abuse, who presented with shortness of breath. He was recently discharged from [facility] after a nearly two month hospitalization. He reports that he was treated for pneumonia, COVID, and GI bleeding. He was debilitated and had to move in with his daughter in [place] on discharge. He had previously been living at his home by himself in [place]. He had been home about ten days prior to coming into our ER. His daughter was concerned that he was developing pneumonia. He was set up with home oxygen on discharge and was supposed to be on 3 L, but he says after a week of being at home they came and took his oxygen tank. He has also had right arm swelling where a PICC line had been during his hospital stay. Subjective/Events-last exam Patient is sitting comfortably in his chair. He is requiring less oxygen today. He has no concerns today. Review of Systems General: No Chills, No Night Sweats HEENT: No Head Aches, No Visual Changes Pulmonary: Dyspnea; No Cough Cardiovascular: No: Chest Pain, Palpitations Gastrointestinal: No: Nausea, Vomiting, Diarrhea, Constipation, Melena, Hematochezia Genitourinary: No Dysuria, No Hematuria Neurological: No: Numbness Objective Exam Vital Signs Vital Signs Date Time Temp Pulse Resp B/P (MAP) Pulse Ox O2 Delivery O2 Flow Rate FiO2 10/27/21 09:36 36.4 58 96 28 10/27/21 09:25 Nasal Cannula 2.00 10/27/21 08:00 16 120/56 (77) Capillary Refill : Less Than 3 Seconds General Appearance: No Apparent Distress HEENT: Normal ENT Inspection Neck: Full Range of Motion, Normal Inspection Respiratory: Normal Breath Sounds, No Accessory Muscle Use Cardiovascular: Regular Rate, Rhythm, No Gallop, No Murmur Gastrointestinal: Normal Bowel Sounds, Non Tender, Soft Back: Normal Inspection Extremity: Normal Inspection, Normal Range of Motion Neurologic/Psychiatric: Alert, Oriented x3, Normal Mood/Affect Skin: Normal Color, Warm/Dry Results/Procedures Lab Laboratory Tests 10/27/21 05:37 Patient resulted labs reviewed. Assessment/Plan Assessment and Plan Assess & Plan/Chief Complaint Acute on chronic mixed respiratory failure - CTA 10/22 showed PE - CXR 10/22 showed bilateral infiltrates and L pleural effusion - hx of COPD - therapeutic lovenox - vanc/zosyn day 5, will finish today - BC x2 show NGTD COPD - continue duoneb - back to baseline 3L, has O2 at home Afib - amiodorone - diltiazem, watch for low HR - lovenox Acute DVT of R subclavian and axillary veins - right arm swelling near PICC line - confirmed on US - continue therapeutic lovenox Debility - PT/OT - IRF eval Iron Deficiency Anemia - recent hospitalization with GI bleed, on ppi - low iron - continue venofer HLD - atorvastatin 10 SIVAN NAVAS DO 10/28/21 0531: Subjective Subjective/Events-last exam Pt is about the same Potassium 4.7 down from 5 Day number 5 of Vancomycin and Zosyn Will go home with home care likely tomorrow Review of Systems General: Fatigue, Malaise Objective Exam General Appearance: No Apparent Distress, WD/WN, Chronically ill, Thin Respiratory: Lungs Clear, Normal Breath Sounds Cardiovascular: Regular Rate, Rhythm Neurologic/Psychiatric: Alert, Oriented x3, Depressed Affect Assessment/Plan Assessment and Plan Assess & Plan/Chief Complaint Discharge plan soon Home health Supervisory-Addendum Brief Verification & Attestation Participated in pt care: history, MDM, physical Personally performed: exam, history, MDM, supervision of care Care discussed with: Medical Student Procedures: n/a Results interpretation: Verified all documentation Verification and Attestation of Medical Student E/M Service A medical student performed and documented this service in my presence. I reviewed and verified all information documented by the medical student and made modifications to such information, when appropriate. I personally performed the physical exam and medical decision making. Sivan Navas, Oct 28, 2021,05:31 COLTEN ALMAGUER Oct 27, 2021 12:46 SIVAN NAVSA DO Oct 28, 2021 05:31
[2021-10-27 16:41] VITALS: BP 145/61
[2021-10-27] MEDS: TAMSULOSIN 0.4 MG (FLOMAX) CAP PO SCH (17:27)
[2021-10-27] MEDS: MIRTAZAPINE 15 MG (REMERON) TAB PO SCH (20:39)
[2021-10-27] MEDS: AtorvaSTATin TABLET 10 MG TABLET PO SCH (20:39)
[2021-10-28 00:20] VITALS: BP 125/54
[2021-10-28 06:06] LABS: BASOPHILS % (AUTO) 0 % (0-10); EOSINOPHILS % (AUTO) 1 % (0-10); HEMATOCRIT 27 % (40-54); HEMOGLOBIN 8.2 g/dL (13.3-17.7); LYMPHOCYTES % (AUTO) 57 % (12-44); MEAN CORPUSCULAR HEMOGLOBIN 29 pg (25-34); MEAN CORPUSCULAR HGB CONC 31 g/dL (32-36); MEAN CORPUSCULAR VOLUME 93 fL (80-99); MEAN PLATELET VOLUME 9.7 fL (9.0-12.2); MONOCYTES # (AUTO) 0.5 10^3/uL (0.0-1.0); MONOCYTES % (AUTO) 10 % (0-12); NEUTROPHILS # (AUTO) 1.7 10^3/uL (1.8-7.8); NEUTROPHILS % (AUTO) 32 % (42-75); PLATELET COUNT 197 10^3/uL (130-400); WHITE BLOOD COUNT 5.2 10^3/uL (4.3-11.0)
[2021-10-28] MEDS: PANTOPRAZOLE 40 MG (PROTONIX) TAB PO SCH ×2 (06:09)
[2021-10-28] MEDS: LEVOTHYROXINE 100 MCG (LEVOTHROID) TAB PO SCH (06:10)
[2021-10-28 06:27] LABS: CALCIUM 8.4 MG/DL (8.5-10.1); CREATININE SERUM 0.61 MG/DL (0.60-1.30); POTASSIUM 4.7 MMOL/L (3.6-5.0)
[2021-10-28] MEDS: RT-ALBUTEROL HFA 8.5 GM INHALER IH SCH (07:08)
[2021-10-28] MEDS: UMECLIDINIUM BROMIDE (INCRUSE ELLIPTA) 7'S IH SCH (07:09)
[2021-10-28 08:00] VITALS: BP 130/59
--- NOTE | 2021-10-28 08:52 | Occupational Ther Daily Note ---
OT Current Status-Daily Note Subjective Denies pain, agreeable to treatment Appearance Left sitting in chair, all needs within reach. Mental Status/Objective Attachments: IV, Oxygen ADL-Treatment Therapy Code Descriptions/Definitions Functional [place] Measure: 0=Not Assessed/NA 4=Minimal Assistance 1=Total Assistance 5=Supervision or Setup 2=Maximal Assistance 6=Modified [place] 3=Moderate Assistance 7=Complete IndependenceSCALE: Activities may be completed with or without assistive devices. 8-Yftybdbtai-wbwboqw completes the activity by him/herself with no assistance from a helper. 5-Set-up or Clean-up Assistance-helper sets up or cleans up; patient completes activity. [place] assists only prior to or following the activity. 4-Supervision or Touching Assistance-helper provides verbal cues and/or touching/steadying and/or contact guard assistance as patient completes activity. Assistance may be provided throughout the activity or intermittently. 3-Partial/Moderate Assistance-helper does LESS THAN HALF the effort. [place] lifts, holds or supports trunk or limbs, but provides less than half the effort. 2-Substantial/Maximal Assistance-helper does MORE THAN HALF the effort. [place] lifts or holds trunk or limbs and provides more than half the effort. 3-Lepdgkpzu-jkjiwk does ALL the effort. Patient does none of the effort to complete the activity. Or, the assistance of 2 or more helpers is required for the patient to complete the activity. If activity was not attempted, code reason: 7-Patient Refused. 9-Not Applicable-not attempted and the patient did not perform the activity before the current illness, exacerbation or injury. 10-Not Attempted due to Environmental Limitations-(lack of equipment, weather restraints, etc.). 88-Not Attempted due to Medical Conditions or Safety Concerns. Upper Body Dressing (QC): 4 Lower Body Dressing (QC): 3 Toileting Hygiene (QC): 3 (Assist for cristofer care and steadying assist during clothing management) Toilet Transfer (QC): 3 Supine>sit: SBA, initial unsteadiness upon sitting upright, but able to sustain balance with verbal cues on improved positioning. Sit<>stand: min A. Pt ambulated ~5 feet x2 with walker. Unsteady on feet. 1 mild LOB needing min-mod a to maintain upright posture. Cues to reach back for chair as pt has tendency to plop. Dressing tasks performed seated in chair. Due to RLE weakness, assist needed to thread into brief/pants. Steadying assist and min a to pull clothing up fully in the back. Pt cued to keep one hand on walker and alternate one hand at a time as balance tends to worsen when removing bilateral UE support. Pt washed face in sitting with set up assist. Education OT Patient Education: Correct positioning, Energy conservation, Modified ADL techniques, Progress toward Goal/Update tx plan, Purpose of tx/functional activities, Safety issues, Transfer techniques Teaching Recipient: Patient Teaching Methods: Demonstration, Discussion Response to Teaching: Verbalize Understanding, Return Demonstration, Reinforcement Needed OT Drafter Electronic Goals Half-Way Goals Time Frame: Nov 06, 2021 Eating (QC): 6 Oral Hygiene (QC): 5 Toileting Hygiene (QC): 4 Shower/Bathe Self (QC): 3 Upper Body Dressing (QC): 4 Lower Body Dressing (QC): 3 On/Off Footwear (QC): 3 Additional Goals: 1-Demonstrate ADL Tasks, 2-Verbalize Understanding, 3-Impro veStrength/Luana 1=Demonstrate adherence to instructed precautions during ADL tasks. 2=Patient will verbalize/demonstrate understanding of assistive devices/modifications for ADL. 3=Patient will improve strength/tolerance for activity to enable patient to perform ADL's. OT Education/Plan Problem List/Assessment Assessment: Decreased Activ Tolerance, Decreased Safety Aware, Decreased UE Strength, Impaired Funct Balance, Impaired I ADL's, Impaired Self-Care Skills Discharge Recommendations Plan/Recommendations: Continue POC Treatment Plan/Plan of Care Treatment,Training & Education: Yes Patient would benefit from OT for education, treatment and training to promote independence in ADL's, mobility, safety and/or upper extremity function for ADL's. Plan of Care: ADL Retraining, Functional Mobility, UE Funct Exercise/Act Treatment Duration: Nov 06, 2021 Frequency: 3 times per week (3-5 times per week) Estimated Hrs Per Day: .25 hour per day Rehab Potential: Fair Time/GCodes Start Time: 08:20 Stop Time: 08:36 Total Time Billed (hr/min): 16 Billed Treatment Time 1 visit ADL Shanelle Saleem OT Oct 28, 2021 08:52
[2021-10-28] MEDS: NICOTINE 14 MG (NICODERM) PATCH TD SCH (09:12)
[2021-10-28] MEDS: DOCUSATE SODIUM 100 MG (COLACE) CAP PO SCH (09:14)
[2021-10-28] MEDS: VITAMIN E 180 MG (400 UNITS) CAP PO SCH (09:14)
[2021-10-28] MEDS: ENOXAPARIN 60 MG/0.6 ML (LOVENOX) SYR SC SCH (09:14)
[2021-10-28] MEDS: IRON SUCROSE 200 MG/10 ML (VENOFER) VIAL IV SCH (09:14)
[2021-10-28] MEDS: CYANOCOBALAMIN 1,000 MCG (VITAMIN B-12) TABLET PO SCH (09:15)
[2021-10-28] MEDS: AMIODARONE 200 MG (CORDARONE) TAB PO SCH (09:15)
[2021-10-28] MEDS: NICOTINE PATCH REMOVAL TP SCH (09:23)
--- NOTE | 2021-10-28 10:50 | Physical Therapy Daily Note ---
PT Daily Note-Current Subjective Patient presented sitting up in his chair and requested to move back to bed. Patient agreed to walk with physical therapy before going back to bed. Mental Status Patient Orientation: Person, Situation Attachments: Oxygen (2L [place]) Transfers SCALE: Activities may be completed with or without assistive devices. 4-Klepasgvnc-cmcjgku completes the activity by him/herself with no assistance from a helper. 5-Set-up or Clean-up Assistance-helper sets up or cleans up; patient completes activity. [place] assists only prior to or following the activity. 4-Supervision or Touching Assistance-helper provides verbal cues and/or touching/steadying and/or contact guard assistance as patient completes activity. Assistance may be provided throughout the activity or intermittently. 3-Partial/Moderate Assistance-helper does LESS THAN HALF the effort. [place] lifts, holds or supports trunk or limbs, but provides less than half the effort. 2-Substantial/Maximal Assistance-helper does MORE THAN HALF the effort. [place] lifts or holds trunk or limbs and provides more than half the effort. 7-Nowmszqfe-rdikik does ALL the effort. Patient does none of the effort to complete the activity. Or, the assistance of 2 or more helpers is required for the patient to complete the activity. If activity was not attempted, code reason: 7-Patient Refused. 9-Not Applicable-not attempted and the patient did not perform the activity before the current illness, exacerbation or injury. 10-Not Attempted due to Environmental Limitations-(lack of equipment, weather restraints, etc.). 88-Not Attempted due to Medical Conditions or Safety Concerns. Sit to Lying (QC): 4 Sit to Stand (QC): 3 Chair/Ugf-lz-Karfr Xfer(QC): 4 Patient required min assist for sit to stand transfer due to retropulsion with patient correct and CGA for all other transfers. Weight Bearing Right Lower Extremity: Right Full Weight Bearing Left Lower Extremity: Left Full Weight Bearing Gait Training Does the Patient Walk?: Yes Distance: 100' Walk 10 feet (QC): 4 Walk 50 ft with 2 Turns(QC): 4 Gait Assistive Device: FWW Patient ambulated 100' with FWW and CGA. Patient ambulated slightly leaning to his left. Patient was able to walk further today than previous days without fatigue. Exercises Supine Ex: Quad Set, Glut sets, Heel Slides, Straight leg raise, Hip abd/add Supine Reps: 10 Treatments Supine exercises Ambulation Assessment Patient ambulated for 100' and performed supine exercises. Patient reported fatigue after ambulation but agreed to perform bed exercises. Patient denies any SOA with ambulation while on 2L of supplemental O2. PT Short Term Goals Short Term Goals Time Frame: Nov 06, 2021 Roll Left & Right: 4 Sit to lyin Lying to sitting on side of be: 4 Sit to stand: 4 Chair/dge-gx-suhuu transfer: 4 Walk 10 feet: 4 Walk 50 feet with two turns: 4 PT Account Manager Goals Account Manager Goals PT Care Home Goals Time Frame: Nov 20, 2021 Roll Left & Right (QC): 6 Sit to Lying (QC): 6 Lying-Sitting on Side/Bed(QC): 6 Sit to Stand (QC): 6 Chair/Ymw-px-Llgtm Xfer(QC): 6 Walk 10 feet (QC): 6 Walk 50ft with 2 Turns (QC): 6 PT Plan Problem List Problem List: Activity Tolerance, Functional Strength, Safety, Balance, Gait, Transfer, Bed Mobility, ROM Treatment/Plan Treatment Plan: Continue Plan of Care Treatment Plan: Bed Mobility, Education, Functional Activity Luana, Functional Strength, Gait, Safety, Therapeutic Exercise, Transfers Treatment Duration: Nov 20, 2021 Frequency: 6 times per week Estimated Hrs Per Day: .25 hour per day Patient and/or Family Agrees t: Yes Time/GCodes Time In: 958 Time Out: 1010 Total Billed Treatment Time: 12 Total Billed Treatment 1 Visit FA 12 min CHELE AC PT Oct 28, 2021 10:50
[2021-10-28] MEDS ORDERED: APIX5TAB PO (11:12)
--- NOTE | 2021-10-28 11:12 | Discharge Summary ---
Discharge Summary Hospital Course Was the Problem List Reviewed?: Yes Problems/Dx: (1) Acute on chronic respiratory failure with hypoxia Status: Acute (2) Pulmonary embolism Status: Acute Qualifiers: (3) Acute thrombosis of right subclavian vein Status: Acute (4) Acute deep vein thrombosis (DVT) of axillary vein of right upper extremity Status: Acute (5) Pneumonia Status: Acute (6) Paroxysmal atrial fibrillation Status: Chronic (7) History of GI bleed Status: Chronic (8) Anemia Status: Chronic (9) Tobacco abuse Status: Chronic (10) CHF (congestive heart failure) Status: Chronic (11) History of recent hospitalization Status: Acute (12) Debility Status: Acute Hospital Course Date of Admission: Oct 22, 2021 at 14:30 Admission Diagnosis : Family Physician/Provider: Bella,Local Physician Date of Discharge: 10/28/21 Discharge Diagnosis: Assess & Plan/Chief Complaint Acute on chronic mixed respiratory failure - CTA 10/22 showed PE - CXR 10/22 showed bilateral infiltrates and L pleural effusion - hx of COPD - therapeutic lovenox - vanc/zosyn day 5, will finish today - BC x2 show NGTD COPD - continue duoneb - back to baseline 3L, has O2 at home Afib - amiodorone - diltiazem, watch for low HR - lovenox Acute DVT of R subclavian and axillary veins - right arm swelling near PICC line - confirmed on US - continue therapeutic lovenox Debility - PT/OT - IRF eval Iron Deficiency Anemia - recent hospitalization with GI bleed, on ppi - low iron - continue venofer HLD - atorvastatin 10 Hospital Course: Hospital Course: Anthony Trotter is a 71y/o M with PMH of atrial fibrillation, recent GI bleed, HLD, COPD, tobacco abuse, who presented with shortness of breath. He was recently discharged from [place] after a nearly two month hospitalization for pneumonia, COVID, and GI bleeding. Chest X-ray showed evidence of pneumonia for which he completed a 5 day course of IV vanc and zosyn. An UE ultrasound was performed due to swelling at his PICC line site whic showed a DVT of the subclavian and axillary vein. A subsequent CTA showed evidence of pulmonary empbolism in the right middle/lower lobe. He was given therapeutic lovenox and continued on home meds for Afib, COPD, and HLD during his hospital stay. He was also started on venafer for iron deficiency anemia. During the course of his stay he was able to be weaned on oxygen back to his baseline of 3L and worked with PT/OT to improve strenght and mobility. He is significantly improved and will be discharged back to [place] to live with son and [id number]. COLTEN ALMAGUER U Labs and Pending Lab Test: Laboratory Tests 10/28/21 05:15: White Blood Count 5.2, Red Blood Count 2.87L, Hemoglobin 8.2L, Hematocrit 27L, Mean Corpuscular Volume 93, Mean Corpuscular Hemoglobin 29, Mean Corpuscular Hemoglobin Concent 31L, Red Cell Distribution Width 18.6H, Platelet Count 197, Mean Platelet Volume 9.7, Immature Granulocyte % (Auto) 0, Neutrophils (%) (Auto) 32L, Lymphocytes (%) (Auto) 57H, Monocytes (%) (Auto) 10, Eosinophils (%) (Auto) 1, Basophils (%) (Auto) 0, Neutrophils # (Auto) 1.7L, Lymphocytes # (Auto) 3.0, Monocytes # (Auto) 0.5, Eosinophils # (Auto) 0.0, Basophils # (Auto) 0.0, Immature Granulocyte # (Auto) 0.0, Sodium Level 136, Potassium Level 4.7, Chloride Level 107, Carbon Dioxide Level 23, Anion Gap 6, Blood Urea Nitrogen 11, Creatinine 0.61, Estimat Glomerular Filtration Rate 101, BUN/Creatinine Ra janelle 18, Glucose Level 71, Calcium Level 8.4L Microbiology 10/22/21 Blood Culture - Final, Complete No growth Home Meds Active Reported Mirtazapine 45 Mg Tablet 22.5 Mg PO HS TAKES OF A 45MG TAB Diltiazem HCl 90 Mg Tablet 90 Mg PO HS Omeprazole 20 Mg Tab.rap.dr 40 Mg PO BIDAC TAKES 2 (20MG) CAPS Levothyroxine Sodium 200 Mcg Tablet 200 Mcg PO DAILY Atorvastatin Calcium 20 Mg Tablet 10 Mg PO HS TAKES OF A 20MG Combivent Respimat Inhal Depue (Albuterol/Ipratropium) 4 Gm Aero 1 Puff IH QID Flomax (Tamsulosin HCl) 0.4 Mg Cap 0.4 Mg PO 1800 TAKES 30 MINUTES AFTER MEAL Xanax (Alprazolam) 0.25 Mg Tablet 0.25 Mg PO TID PRN Proair Hfa (Albuterol Sulfate) 1 Puff Puff 2 Puff IH Q4H PRN B-12 (Cyanocobalamin (Vitamin B-12)) 1,000 Mcg Tablet 1,000 Mcg PO DAILY Vitamin E (Vitamin E Acetate) 400 Unit Capsule 400 Unit PO DAILY Amiodarone HCl 200 Mg Tablet 400 Mg PO DAILY TAKES 2 (200MG) TABS Docusate Sodium 100 Mg Capsule 200 Mg PO DAILY TAKES 2 (100MG) CAPS Assessment/Pt Instructions PCP in 1 week Discharge Planning: <30 minutes discharge planning Discharge Instructions Activity as Tolerated: Yes Discharge Physical Examination Vital Signs Vital Signs Date Time Temp Pulse Resp B/P (MAP) Pulse Ox O2 Delivery O2 Flow Rate FiO2 10/28/21 08:22 Nasal Cannula 2.00 10/28/21 08:00 36.6 57 18 130/59 (82) 93 10/27/21 09:36 28 General Appearance: No Apparent Distress, WD/WN, Chronically ill, Thin Respiratory: Lungs Clear Cardiovascular: Regular Rate, Rhythm Allergies: Coded Allergies: gluten (Unverified Allergy, Unknown, 10/26/21) Pt has Celiac disease Discharge Summary Date of Admission Oct 22, 2021 at 14:30 Date of Discharge Discharge Date: Oct 28, 2021 Admission Diagnosis Acute on chronic respiratory failure with hypoxia Discharge Diagnosis Discharge plan [facility] (1) Acute on chronic respiratory failure with hypoxia Status: Acute (2) Pulmonary embolism Status: Acute Qualifiers: (3) Acute thrombosis of right subclavian vein Status: Acute (4) Acute deep vein thrombosis (DVT) of axillary vein of right upper extremity Status: Acute (5) Pneumonia Status: Acute (6) Paroxysmal atrial fibrillation Status: Chronic (7) History of GI bleed Status: Chronic (8) Anemia Status: Chronic (9) Tobacco abuse Status: Chronic (10) CHF (congestive heart failure) Status: Chronic (11) History of recent hospitalization Status: Acute (12) Debility Status: Acute GHASSAN NAVAS DO Oct 28, 2021 11:12
--- NOTE | 2021-10-28 12:17 | Progress Note ---
COLTEN ALMAGUER 10/28/21 1217: Progress Note Hospital Course: Anthony Trotter is a 71y/o M with PMH of atrial fibrillation, recent GI bleed, HLD, COPD, tobacco abuse, who presented with shortness of breath. He was recently discharged from [place] after a nearly two month hospitalization for pneumonia, COVID, and GI bleeding. Chest X-ray showed evidence of pneumonia for which he completed a 5 day course of IV vanc and zosyn. An UE ultrasound was performed due to swelling at his PICC line site whic showed a DVT of the subclavian and axillary vein. A subsequent CTA showed evidence of pulmonary empbolism in the right middle/lower lobe. He was given therapeutic lovenox and continued on home meds for Afib, COPD, and HLD during his hospital stay. He was also started on venafer for iron deficiency anemia. During the course of his stay he was able to be weaned on oxygen back to his baseline of 3L and worked with PT/OT to improve strenght and mobility. He is significantly improved and will be discharged back to [place] to live with son and [id number]. SIVAN NAVAS DO 10/29/21 0517: Supervisory-Addendum Brief Verification & Attestation Participated in pt care: history, MDM, physical Personally performed: exam, history, MDM, supervision of care Care discussed with: Medical Student Procedures: n/a Results interpretation: Verified all documentation Verification and Attestation of Medical Student E/M Service A medical student performed and documented this service in my presence. I reviewed and verified all information documented by the medical student and made modifications to such information, when appropriate. I personally performed the physical exam and medical decision making. Sivan Navas, Oct 29, 2021,05:17 COLTEN ALMAGUER Oct 28, 2021 12:17 SIVAN NAVAS DO Oct 29, 2021 05:17
--- NOTE | 2021-11-01 02:10 | Physician Query Clarification ---
PQ-Conflicting Diagnosis Admission/Discharge Admission Date: Oct 22, 2021 at 14:30 Discharge Date: Oct 28, 2021 at 12:44 GHASSAN Fulton DO The medical record reflects the following clinical scenario: History/Risk Factors: [list no more than 2] Clinical Findings: [list no more than 2] Treatment: [list no more than 2] Question: Do you agree with the impression of the [diagnosis/condition] per [consulting physician]. Please document a response in Progress Note or Discharge Summary. 1. Yes 2. No 3. Other, with explanation of clinical findings 4. Clinically undetermined, no explanation for clinical findings. Please remember a lack of response to the above will prompt a phone page by CDI/Coding staff. In responding to this query, please exercise your independent professional judgment. The purpose of this communication is to more accurately reflect the complexity of your patients condition. The fact that a question is asked does not imply that any particular answer is desired or expected. Thank you for your timely response to this clarification. Requestors name: [ ] Phone # [ ] THIS PHYSICIAN QUERY FORM IS A PERMANENT PART OF THE MEDICAL RECORD CIARA MARTINEZ Nov 01, 2021 02:10
--- NOTE | 2021-11-01 02:22 | Physician Query Clarification ---
PQ-Intro New Diagnosis Admission/Discharge Admission Date: Oct 22, 2021 at 14:30 Discharge Date: Oct 28, 2021 at 12:44 GHASSAN Fulton DO The medical record reflects the following clinical scenario: History/Risk Factors: 71 y/o male patient presented with shortness of breath, found to have pneumonia and pulmonary embolism, aspiration pneumonia was documented only in ER provider notes. ER Physcian notes, 10/22: Aspiration pneumonia, pulmonary embolism Hand P, 10/22: Acute on chronic hypoxic respiratory failure, pneumonia, pulmonary embolism, acute DVT of auxiliary vein. Progress notes, 10/24: Acute on chronic hypoxic respiratory failure, pneumonia, pulmonary embolism, acute DVT of auxiliary vein. Clinical Findings: Bilateral infiltrates, small left effusion on chest X-ray. Treatment:IV Vancomycin, Zosyn, Lovenox. Question: What condition best reflects the above clinical scenario? Please document a response in the Progress Noter or Discharge Summary. 1. Aspiration pneumonia. 2. Pneumonia unspecified. 3. Other, with explanation of the clinical findings. 4. Clinically undetermined, no explanation for the clinical findings. PHYSICIAN RESPONSE What condition reflects above: Clinically undetermined Please remember a lack of response to the above will prompt a phone page by CDI/Coding staff. In responding to this query, please exercise your independent professional judgment. The purpose of this communication is to more accurately reflect the complexity of your patients condition. The fact that a question is asked does not imply that any particular answer is desired or expected. Thank you for your timely response to this clarification. Requestors name: [ ] Phone # [ ] THIS PHYSICIAN QUERY FORM IS A PERMANENT PART OF THE MEDICAL RECORD CIARA MARTINEZ Nov 01, 2021 02:21 GHASSAN NAVAS DO Nov 01, 2021 04:59
== END 2021-10-28 12:44 | disposition home health service (06) | DRG 175 ==
LOC: ER 12:44 → 4TH 14:30
PROVIDERS: ADMIT Internal Medicine; ATTEND Internal Medicine
DX: I26.99 Other pulmonary embolism without acute cor pulmonale (principal); L89.113 Pressure ulcer of right upper back, stage 3; L89.153 Pressure ulcer of sacral region, stage 3; J96.21 Acute and chronic respiratory failure with hypoxia; J18.9 Pneumonia, unspecified organism; I82.B11 Acute embolism and thrombosis of right subclavian vein; I82.A11 Acute embolism and thrombosis of right axillary vein; E78.5 Hyperlipidemia, unspecified; J44.9 Chronic obstructive pulmonary disease, unspecified; F17.210 Nicotine dependence, cigarettes, uncomplicated; I50.9 Heart failure, unspecified; I48.0 Paroxysmal atrial fibrillation; R53.81 Other malaise; Z86.16 Personal history of COVID-19; L89.612 Pressure ulcer of right heel, stage 2; D50.9 Iron deficiency anemia, unspecified
CPT/HCPCS: 36415; 71045; 71275; 80048; 80053; 80076; 81000; 82805; 82947; 83540; 83880; 84145; 84484; 85025; 85379; 85610; 86141; 87040; 93005; 94640; 94760; 96365; 96375

== ENCOUNTER 2021-11-18 10:23 | Emergency (ER) | payer OTHER ==
[~2021-11-18] VITALS: Ht 182 cm; Wt 69.0 kg
[~2021-11-18 10:23] MED LIST: ALPR0.25 PO; AMIO200T65 PO; APIX5TAB PO; ATOR10TA66 PO; ATOR20TA66 PO; CYAN100088 PO; DILT90TA PO; DLT90CCR PO; DOCU100C37 PO; IPRA4AER IH; LEVO200C2 PO; LEVO200T6 PO; MIRT-68 PO; MIRT45TA75 PO; OMEP-401 PO; OMEP20TA7 PO; OMEP40CA6 PO; POLY17PO6 PO; RT-ALBUINH IH; TMSL.4C PO; VITA400C64 PO
--- NOTE | 2021-11-18 11:11 | ED Upper Extremity ---
General Chief Complaint: Upper Extremity Stated Complaint: L ARM SWELLING PAIN Nursing Triage Note: PT TO [facility] VIA W/C FROM HOME. PT CO OF L ARM SWELLING. STATES STARTED YESTERDAY RATES PAIN 12/26 Source: patient Exam Limitations: no limitations History of Present Illness Date Seen by Provider: Nov 18, 2021 Time Seen by Provider: 10:46 Initial Comments Patient to the ER by private conveyance with his significant other chief complaint that he is having some increased swelling in bilateral lower extremities as well as his left upper extremity. He is having little bit of chest pain shortness of air but he thinks it is from gas because whenever he passes gas he gets better. He has a history of celiac's disease. He also has a history of few weeks ago had a blood clot in his right upper extremity and was off his Eliquis for only about a week in preparation for a procedure. He has been on his Eliquis ever since then. He does not have any chest pain or shortness of air right now. Allergies and Home Medications Allergies Coded Allergies: gluten (Unverified Allergy, Unknown, 10/26/21) Pt has Celiac disease Patient Home Medication List Home Medication List Reviewed: Yes Albuterol Sulfate (Proair Hfa) 1 Puff Puff, 2 PUFF IH Q4H PRN for SHORTNESS OF BREATH, (Reported) Entered as Reported by: IVET MARTÍNEZ on 10/23/211957 Albuterol/Ipratropium (Combivent Respimat Inhal [place]) 4 Gm Aero, 1 PUFF IH QID, (Reported) Entered as Reported by: IVET MARTÍNEZ on 10/23/211957 Alprazolam (Xanax) 0.25 Mg Tablet, 0.25 MG PO TID PRN for ANXIETY, (Reported) Entered as Reported by: IVET MARTÍNEZ on 10/23/211957 Amiodarone HCl (Amiodarone HCl) 200 Mg Tablet, 400 MG PO DAILY, (Reported) Entered as Reported by: IVET MARTÍNEZ on 10/23/211957 Apixaban (Eliquis) 5 Mg Tablet, 5 MG PO BID Prescribed by: GHASSAN NAVAS on 10/28/21 1112 Atorvastatin Calcium (Atorvastatin Calcium) 20 Mg Tablet, 10 MG PO HS, (Reported) Entered as Reported by: TATE LINDA on 10/25/21 1234 Cyanocobalamin (Vitamin B-12) (B-12) 1,000 Mcg Tablet, 1,000 MCG PO DAILY, ( Reported) Entered as Reported by: IVET MARTÍNEZ on 10/23/211957 Diltiazem HCl (Diltiazem HCl) 90 Mg Tablet, 90 MG PO HS, (Reported) Entered as Reported by: TATE LINDA on 10/25/211233 Docusate Sodium (Docusate Sodium) 100 Mg Capsule, 200 MG PO DAILY, (Reported) Entered as Reported by: IVET MARTÍNEZ on 10/23/211957 Levothyroxine Sodium (Levothyroxine Sodium) 200 Mcg Tablet, 200 MCG PO DAILY, (Reported) Entered as Reported by: TATE LINDA on 10/25/211233 Mirtazapine (Mirtazapine) 45 Mg Tablet, 22.5 MG PO HS, (Reported) Entered as Reported by: TATE LINDA on 10/25/211233 Omeprazole (Omeprazole) 20 Mg Tab.rap.dr, 40 MG PO BIDAC, (Reported) Entered as Reported by: TATE LINDA on 10/25/211233 Tamsulosin HCl (Flomax) 0.4 Mg Cap, 0.4 MG PO 1800, (Reported) Entered as Reported by: IVET MARTÍNEZ on 10/23/211957 Vitamin E Acetate (Vitamin E) 400 Unit Capsule, 400 UNIT PO DAILY, (Reported) Entered as Reported by: IVET MARTÍNEZ on 10/23/211957 Review of Systems Constitutional: No chills, No diaphoresis EENTM: No ear discharge, No ear pain Respiratory: No cough, No short of breath Cardiovascular: No edema, No palpitations Gastrointestinal: No abdominal pain, No nausea, No vomiting Genitourinary: No discharge, No dysuria Musculoskeletal: see HPI; No back pain, No joint pain Skin: No pruritus, No rash All Other Systems Reviewed Negative Unless Noted: No Past Hkhnaxc-Gpbfcs-Xqwrrb Hx Patient Social History Tobacco Use?: Yes Smoking Status: Current Everyday Smoker Substance use?: No Alcohol Use?: No Pt feels they are or have been: No Immunizations Up To Date First/Initial COVID19 Vaccinat: 2020 Second COVID19 Vaccination Femi: 2020 Third COVID19 Vaccination Date: 2020 COVID19 Vaccine Apartment Leasing Agent: MELISSA Past Medical History Surgery/Hospitalization HX: RECENTLY 51DAYS AT [facility], GI BLEED AND COVID Atrial Fibrillation, High Cholesterol Gastrointestinal Bleed Family Medical History No Pertinent Family Hx Physical Exam Vital Signs Vital Signs - First Documented 11/18/21 10:35 Temp 35.9 Pulse 54 Resp 16 B/P (MAP) 173/68 (103) Pulse Ox 99 O2 Delivery Nasal Cannula O2 Flow Rate 2.50 Capillary Refill : Less Than 3 Seconds Height, Weight, BMI Height: '" Weight: lbs. oz. kg; 20.00 BMI Method: General Appearance: WD/WN, no apparent distress HEENT: PERRL/EOMI, pharynx normal Neck: full range of motion, normal inspection Cardiovascular: normal peripheral pulses, regular rate, rhythm Respiratory: lungs clear, normal breath sounds, no respiratory distress, no accessory muscle use Shoulder: swelling (Right upper extremity 1+ pitting edema without wounds or ecchymosis. No erythema or warmth) Neurologic/Psychiatric: alert, normal mood/affect, oriented x 3 Progress/Results/Core Measures Results/Orders Lab Results Laboratory Tests Test 11/18/21 11:50 Range/Units White Blood Count 5.2 4.3-11.0 10^3/uL Red Blood Count 3.43 L 4.30-5.52 10^6/uL Hemoglobin 10.1 L 13.3-17.7 g/dL Hematocrit 33 L 40-54 % Mean Corpuscular Volume 97 80-99 fL Mean Corpuscular Hemoglobin 29 25-34 pg Mean Corpuscular Hemoglobin Concent 30 L 32-36 g/dL Red Cell Distribution Width 17.6 H 10.0-14.5 % Platelet Count 160 130-400 10^3/uL Mean Platelet Volume 10.0 9.0-12.2 fL Immature Granulocyte % (Auto) 0 % Neutrophils (%) (Auto) 43 42-75 % Lymphocytes (%) (Auto) 44 12-44 % Monocytes (%) (Auto) 11 0-12 % Eosinophils (%) (Auto) 2 0-10 % Basophils (%) (Auto) 0 0-10 % Neutrophils # (Auto) 2.2 1.8-7.8 10^3/uL Lymphocytes # (Auto) 2.3 1.0-4.0 10^3/uL Monocytes # (Auto) 0.6 0.0-1.0 10^3/uL Eosinophils # (Auto) 0.1 0.0-0.3 10^3/uL Basophils # (Auto) 0.0 0.0-0.1 10^3/uL Immature Granulocyte # (Auto) 0.0 0.0-0.1 10^3/uL Prothrombin Time 15.1 H 12.2-14.7 SEC INR Comment 1.2 0.8-1.4 D-Dimer 0.90 H 0.00-0.49 UG/ML Sodium Level 137 135-145 MMOL/L Potassium Level 5.3 H 3.6-5.0 MMOL/L Chloride Level 108 H 98-107 MMOL/L Carbon Dioxide Level 19 L 21-32 MMOL/L Anion Gap 10 5-14 MMOL/L Blood Urea Nitrogen 22 H 7-18 MG/DL Creatinine 0.69 0.60-1.30 MG/DL Estimat Glomerular Filtration Rate 98 BUN/Creatinine Ratio 32 Glucose Level 83 70-105 MG/DL Calcium Level 8.8 8.5-10.1 MG/DL Troponin I < 0.028 <0.028 NG/ML My Orders Orders - AMY AHUJA Ct Angio Chest W (11/18/21 11:06) Cbc With Automated Diff (11/18/21 11:06) Basic Metabolic Panel (11/18/21 11:06) Protime With Inr (11/18/21 11:06) Fibrin Degradation Products (11/18/21 11:11) Troponin I Alex (11/18/21 11:11) Ekg Tracing (11/18/21 11:11) Iohexol Injection (Omnipaque 350 Mg/Ml 1 (11/18/21 11:30) Received Contrast (Hold Metformin- Contr (11/18/21 11:30) Sodium Chloride Flush (Catheter Flush Sy (11/18/21 11:30) Ns (Ivpb) (Sodium Chloride 0.9% Ivpb Bag (11/18/21 11:30) Us Venous Upper Ext Lt (11/18/21 14:46) Ed Iv/Invasive Line Start (11/18/21 14:46) Medications Given in ED Current Medications Medications Dose Ordered Sig/Darion Route Start Time Stop Time Status Last Admin Dose Admin Iohexol 100 ml ONCE ONCE IV 11/18/21 11:30 11/18/21 11:31 DC 11/18/21 12:30 64 ML Sodium Chloride 100 ml ONCE ONCE IV 11/18/21 11:30 11/18/21 11:31 DC 11/18/21 12:30 80 ML Vital Signs/I&O 11/18/21 11/18/21 10:35 16:55 Temp 35.9 Pulse 54 57 Resp 16 18 B/P (MAP) 173/68 (103) 173/73 Pulse Ox 99 99 O2 Delivery Nasal Cannula Nasal Cannula O2 Flow Rate 2.50 2.50 2.50 Blood Pressure Mean: 103 Initial ECG Impression Date: Nov 18, 2021 Initial ECG Impression Time: 11:23 Initial ECG Rate: 53 Initial ECG Rhythm: Normal Sinus Initial ECG Intervals: Normal Initial ECG Impression: Normal, Nonspecific Changes Comment Normal sinus rhythm without clinically relevant ST elevation or depression Diagnostic Imaging Diagonstic Imaging: CT Plain Films/CT/US/NM/MRI: chest Comments [facility], [place] NAME: PRIMO CHIRINOS [facility] REC#: [id number] PT STATUS: REG ER : 1950 PHYSICIAN: AMY AHUJA MD ADMIT DATE: 11/18/21/ER Draft Date of Exam:11/18/21 CT ANGIO CHEST W EXAMINATION: CT angiography of the chest. TECHNIQUE: Contrast enhanced thin section helical images were obtained through the chest with intravenous contrast timed for the optimal opacification of the arterial structures per CTA protocol. Post-processing, reconstructions and interpretation of angiographic images of the vessels was performed. 3D MIP reconstructions were performed and reviewed. All CT scans use one or more of the following dose optimizing techniques: automated exposure control, MA and/or KvP adjustment based on a patient size and exam type, or iterative reconstruction. HISTORY: Chest pain, shortness of breath, recent pulmonary embolism. COMPARISON: 10/22/2021. FINDINGS: There is no pulmonary embolism. Previously seen pulmonary embolus has resolved. Pulmonary artery is mildly dilated suggestive of pulmonary hypertension. Lungs are emphysematous with mild pulmonary edema and small bilateral pleural effusions. There is bibasilar atelectasis. No pneumothorax. No suspicious nodules. There is no axillary or supraclavicular lymphadenopathy. There is no mediastinal lymphadenopathy. Heart size is normal. There are mild coronary artery calcifications. No pericardial effusion. Aorta is normal in caliber. Limited views of the upper abdomen show sludge or stones in the gallbladder. There are no suspicious osseous lesions. IMPRESSION: 1. No pulmonary embolism. Previously seen pulmonary emboli resolved. 2. Small bilateral pleural effusions and mild pulmonary edema. Dictated on workstation # [id number] Dict: 11/18/21 1229 Trans: 11/18/21 1246 [id number] [id number] Interpreted by: NATASHA TIJERINA MD Electronically signed by: Reviewed: Reviewed by Me Diagonstic Imaging: Ultrasound Plain Films/CT/US/NM/MRI: forearm Comments [facility], [place] NAME: RPIMO CHIRINOS [facility] REC#: [id number] PT STATUS: REG ER : 1950 PHYSICIAN: AMY AHUJA MD ADMIT DATE: 11/18/21/ER Signed Date of Exam:11/18/21 US VENOUS UPPER EXT LT EXAMINATION: US Upper Extremity Venous Duplex Left. TECHNIQUE: Multiple real-time grayscale images were obtained over the left upper extremity in various projections. Additional spectral analysis and color Doppler duplex images were also obtained. HISTORY: Swelling. COMPARISON: None available. FINDINGS: The left jugular vein, subclavian vein, cephalic vein and axillary vein are patent with normal jauregui scale and doppler appearance. The veins of the distal arm are patent. There is normal respiratory variation and augmentation. IMPRESSION: 1. No DVT of the left upper extremity. Dictated by: Dictated on workstation # [id number] Dict: 11/18/21 1605 Trans: 11/18/21 1609 [id number] [id number] Interpreted by: CARLIE CARTER DO Electronically signed by: CARLIE CARTER DO 11/18/21 1609 Reviewed: Reviewed by Me Departure Impression Primary Impression: Edema of left upper extremity Disposition: 01 HOME, SELF-CARE Condition: Stable Departure-Patient Inst. Decision time for Depature: 16:30 Referrals: NO,LOCAL PHYSICIAN (PCP/Family) Primary Care Physician Patient Instructions: Dependent Edema (DC) Add. Discharge Instructions: Wear a compression sleeve and follow-up with primary care. All discharge instructions reviewed with patient and/or family. Voiced understanding. AMY AHUJA Nov 18, 2021 11:11
[2021-11-18] MEDS ORDERED: NS 100 ML (IVPB) BAG IV ONE (11:30)
[2021-11-18] MEDS ORDERED: HOLD METFORMIN - RECEIVED CONTRAST 20 ML VIAL IV SCH (11:30)
[2021-11-18] MEDS ORDERED: CATHETER FLUSH 10 ML SYR IV PRN (11:30)
[2021-11-18] MEDS ORDERED: IOHEXOL 350 MG/ML 100 ML (OMNIPAQUE 350) VIAL IV ONE (11:30)
[2021-11-18 12:08] LABS: BASOPHILS % (AUTO) 0 % (0-10); EOSINOPHILS # (AUTO) 0.1 10^3/uL (0.0-0.3); EOSINOPHILS % (AUTO) 2 % (0-10); HEMATOCRIT 33 % (40-54); HEMOGLOBIN 10.1 g/dL (13.3-17.7); LYMPHOCYTES # (AUTO) 2.3 10^3/uL (1.0-4.0); LYMPHOCYTES % (AUTO) 44 % (12-44); MEAN CORPUSCULAR HEMOGLOBIN 29 pg (25-34); MEAN CORPUSCULAR HGB CONC 30 g/dL (32-36); MEAN CORPUSCULAR VOLUME 97 fL (80-99); MONOCYTES # (AUTO) 0.6 10^3/uL (0.0-1.0); MONOCYTES % (AUTO) 11 % (0-12); NEUTROPHILS # (AUTO) 2.2 10^3/uL (1.8-7.8); NEUTROPHILS % (AUTO) 43 % (42-75); PLATELET COUNT 160 10^3/uL (130-400); WHITE BLOOD COUNT 5.2 10^3/uL (4.3-11.0)
[2021-11-18 12:13] LABS: CHLORIDE 108 MMOL/L (98-107); POTASSIUM 5.3 MMOL/L (3.6-5.0); SODIUM 137 MMOL/L (135-145)
[2021-11-18 12:14] LABS: CALCIUM 8.8 MG/DL (8.5-10.1)
[2021-11-18 12:15] LABS: GLUCOSE 83 MG/DL (70-105)
[2021-11-18 12:16] LABS: CARBON DIOXIDE 19 MMOL/L (21-32); FIBRIN DEGRADATION PRODUCTS 0.9 UG/ML (0.00-0.49); INR 1.2 (0.8-1.4); PROTHROMBIN TIME PATIENT 15.1 SEC (12.2-14.7)
[2021-11-18 12:19] LABS: CREATININE SERUM 0.69 MG/DL (0.60-1.30); GFR ESTIMATED 98
[2021-11-18 12:20] LABS: BUN/CREATININE RATIO 32
--- NOTE | 2021-11-18 12:47 | Diagnostic Imaging Report ---
EXAMINATION: CT angiography of the chest. TECHNIQUE: Contrast enhanced thin section helical images were obtained through the chest with intravenous contrast timed for the optimal opacification of the arterial structures per CTA protocol. Post-processing, reconstructions and interpretation of angiographic images of the vessels was performed. 3D MIP reconstructions were performed and reviewed. All CT scans use one or more of the following dose optimizing techniques: automated exposure control, MA and/or KvP adjustment based on a patient size and exam type, or iterative reconstruction. HISTORY: Chest pain, shortness of breath, recent pulmonary embolism. COMPARISON: 10/22/2021. FINDINGS: There is no pulmonary embolism. Previously seen pulmonary embolus has resolved. Pulmonary artery is mildly dilated suggestive of pulmonary hypertension. Lungs are emphysematous with mild pulmonary edema and small bilateral pleural effusions. There is bibasilar atelectasis. No pneumothorax. No suspicious nodules. There is no axillary or supraclavicular lymphadenopathy. There is no mediastinal lymphadenopathy. Heart size is normal. There are mild coronary artery calcifications. No pericardial effusion. Aorta is normal in caliber. Limited views of the upper abdomen show sludge or stones in the gallbladder. There are no suspicious osseous lesions. IMPRESSION: 1. No pulmonary embolism. Previously seen pulmonary emboli resolved. 2. Small bilateral pleural effusions and mild pulmonary edema. Dictated by: Dictated on workstation # [id number]
--- NOTE | 2021-11-18 16:08 | Diagnostic Imaging Report ---
EXAMINATION: US Upper Extremity Venous Duplex Left. TECHNIQUE: Multiple real-time grayscale images were obtained over the left upper extremity in various projections. Additional spectral analysis and color Doppler duplex images were also obtained. HISTORY: Swelling. COMPARISON: None available. FINDINGS: The left jugular vein, subclavian vein, cephalic vein and axillary vein are patent with normal jauregui scale and doppler appearance. The veins of the distal arm are patent. There is normal respiratory variation and augmentation. IMPRESSION: 1. No DVT of the left upper extremity. Dictated by: Dictated on workstation # [id number]
[2021-11-18 16:55] VITALS: BP 173/73
== END 2021-11-18 16:55 | disposition home or self-care (01) ==
LOC: EDUNIT# 10:23 → ER 10:24
DX: R60.0 Localized edema (principal); F17.290 Nicotine dependence, other tobacco product, uncomplicated
CPT/HCPCS: 36415; 71275; 80048; 84484; 85025; 85379; 85610; 93005

== ENCOUNTER 2021-12-07 14:21 | Emergency (ER) | payer OTHER ==
[~2021-12-07] VITALS: Ht 182 cm; Wt 75.0 kg
--- NOTE | 2021-12-07 14:45 | ED Cough/URI ---
General Chief Complaint: Respiratory Problems Stated Complaint: SOA - COUGH Source: patient, family Exam Limitations: no limitations History of Present Illness Date Seen by Provider: Dec 07, 2021 Time Seen by Provider: 14:41 Initial Comments Anthony Trotter is a 71y/o M with PMH of atrial fibrillation, recent GI bleed, HLD, COPD, tobacco abuse, who presented with shortness of breath today. This began 2 to 3 days ago associated with increased cough. No fevers. Oxygen dependent at 2 L per nasal cannula [id number] for diagnosis of COPD. Had a prolonged stay at [facility] released after nearly 2 months at the end of September. He was admitted for Covid, had a PICC line, developed DVT right upper extremity at the PICC line site complicated by pulmonary embolism. Repeat CT angio showed clearing of the pulmonary embolism. He is still on Eliquis and denies any dark or grossly bloody stools. History of recent pneumonia, COVID, GI bleed, COPD, current tobacco use smoking about 5 cigarettes/day, general debility. Brought to ER by [id number] who provides all history for him. [facility] and they wanted him to be evaluated for aspiration pneumonia as he has a history of that. Timing/Duration: other (2 days ago) Severity/Quality: productive cough Prior Episodes/Possible Cause: occasional episodes Associated Symptoms: cough, shortness of breath Allergies and Home Medications Allergies Coded Allergies: gluten (Unverified Allergy, Unknown, 10/26/21) Pt has Celiac disease Patient Home Medication List Home Medication List Reviewed: Yes Albuterol Sulfate (Proair Hfa) 1 Puff Puff, 2 PUFF IH Q4H PRN for SHORTNESS OF BREATH, (Reported) Entered as Reported by: IVET MARTÍNEZ on 10/23/211957 Albuterol/Ipratropium (Combivent Respimat Inhal [place]) 4 Gm Aero, 1 PUFF IH QID, (Reported) Entered as Reported by: IVET MARTÍNEZ on 10/23/211957 Alprazolam (Xanax) 0.25 Mg Tablet, 0.25 MG PO TID PRN for ANXIETY, (Reported) Entered as Reported by: IVET MARTÍNEZ on 10/23/211957 Amiodarone HCl (Amiodarone HCl) 200 Mg Tablet, 400 MG PO DAILY, (Reported) Entered as Reported by: IVET MARTÍNEZ on 10/23/211957 Apixaban (Eliquis) 5 Mg Tablet, 5 MG PO BID Prescribed by: GHASSAN NAVAS on 10/28/21 111 Atorvastatin Calcium (Atorvastatin Calcium) 20 Mg Tablet, 10 MG PO HS, (Reported) Entered as Reported by: TATE LINDA on 10/25/211233 Cefuroxime Axetil (Cefuroxime) 250 Mg Tablet, 250 MG PO BID Prescribed by: RADHA AGUDELO on 12/07/21 152 Cyanocobalamin (Vitamin B-12) (B-12) 1,000 Mcg Tablet, 1,000 MCG PO DAILY, (Reported) Entered as Reported by: IVET MARTÍNEZ on 10/23/211957 Diltiazem HCl (Diltiazem HCl) 90 Mg Tablet, 90 MG PO HS, (Reported) Entered as Reported by: TATE LINDA on 10/25/211233 Docusate Sodium (Docusate Sodium) 100 Mg Capsule, 200 MG PO DAILY, (Reported) Entered as Reported by: IVET MARTÍNEZ on 10/23/211957 Furosemide (Furosemide) 40 Mg Tablet, 40 MG PO DAILY, (Reported) Entered as Reported by: RODRIGUEZ MARIO on 12/07/211449 Last Action: New Order Guaifenesin (Guaifenesin) 200 Mg Tablet, 200 MG PO TID, (Reported) Entered as Reported by: RODRIGUEZ MARIO on 12/07/211449 Last Action: New Order Levothyroxine Sodium (Levothyroxine Sodium) 200 Mcg Tablet, 200 MCG PO DAILY, (Reported) Entered as Reported by: TATE LINDA on 10/25/211233 Mirtazapine (Mirtazapine) 45 Mg Tablet, 22.5 MG PO HS, (Reported) Entered as Reported by: TATE LINDA on 10/25/211233 Omeprazole (Omeprazole) 20 Mg Tab.rap.dr, 40 MG PO BIDAC, (Reported) Entered as Reported by: TATE LINDA on 10/25/21 123 Prednisone (Prednisone) 10 Mg Tab.ds.pk, 10 MG PO DAILY Prescribed by: RADHA AGUDELO on 12/07/21 152 Tamsulosin HCl (Flomax) 0.4 Mg Cap, 0.4 MG PO 1800, (Reported) Entered as Reported by: IVET MARTÍNEZ on 10/23/211957 Vitamin E Acetate (Vitamin E) 400 Unit Capsule, 400 UNIT PO DAILY, (Reported) Entered as Reported by: IVET MARTÍNEZ on 10/23/211957 Review of Systems Review of Systems Constitutional: see HPI EENTM: see HPI Respiratory: see HPI, cough, short of breath, wheezing Cardiovascular: see HPI Genitourinary: no symptoms reported Musculoskeletal: no symptoms reported Skin: no symptoms reported Psychiatric/Neurological: No Symptoms Reported Hematologic/Lymphatic: No Symptoms Reported Past Oifiswe-Xkorgt-Jldrch Hx Immunizations Up To Date First/Initial COVID19 Vaccinat: 2020 Second COVID19 Vaccination Femi: 2020 Third COVID19 Vaccination Date: 2020 Past Medical History Surgery/Hospitalization HX: RECENTLY 51DAYS AT [facility], GI BLEED AND COVID Atrial Fibrillation, High Cholesterol Gastrointestinal Bleed Family Medical History No Pertinent Family Hx Physical Exam Vital Signs - First Documented 12/07/21 14:29 Temp 36.5 Pulse 58 Resp 22 B/P (MAP) 156/68 (97) Pulse Ox 98 O2 Delivery Nasal Cannula O2 Flow Rate 2.00 Capillary Refill : Height: '" Weight: lbs. oz. kg; 20.00 BMI Method: General Appearance: WD/WN, no apparent distress, other (Chronically ill.) Neck: non-tender, full range of motion Respiratory: no accessory muscle use, decreased breath sounds, crackles (right base) Cardiovascular: regular rate, rhythm, no murmur Gastrointestinal: normal bowel sounds, non tender, soft Extremities: normal range of motion, non-tender Neurologic/Psychiatric: alert, normal mood/affect, oriented x 3 Skin: normal color, warm/dry Progress/Results/Core Measures Suspected Sepsis SIRS Temperature: Pulse: Respiratory Rate: Laboratory Tests 12/07/21 14:30: White Blood Count 7.7 Blood Pressure / Mean: Laboratory Tests 12/07/21 14:30: Creatinine 0.75, Platelet Count 173, Total Bilirubin 0.4 Results/Orders Lab Results Laboratory Tests Test 12/07/21 14:30 Range/Units White Blood Count 7.7 4.3-11.0 10^3/uL Red Blood Count 3.81 L 4.30-5.52 10^6/uL Hemoglobin 11.0 L 13.3-17.7 g/dL Hematocrit 37 L 40-54 % Mean Corpuscular Volume 97 80-99 fL Mean Corpuscular Hemoglobin 29 25-34 pg Mean Corpuscular Hemoglobin Concent 30 L 32-36 g/dL Red Cell Distribution Width 16.2 H 10.0-14.5 % Platelet Count 173 130-400 10^3/uL Mean Platelet Volume 10.1 9.0-12.2 fL Immature Granulocyte % (Auto) 0 % Neutrophils (%) (Auto) 61 42-75 % Lymphocytes (%) (Auto) 28 12-44 % Monocytes (%) (Auto) 10 0-12 % Eosinophils (%) (Auto) 1 0-10 % Basophils (%) (Auto) 0 0-10 % Neutrophils # (Auto) 4.7 1.8-7.8 10^3/uL Lymphocytes # (Auto) 2.1 1.0-4.0 10^3/uL Monocytes # (Auto) 0.8 0.0-1.0 10^3/uL Eosinophils # (Auto) 0.1 0.0-0.3 10^3/uL Basophils # (Auto) 0.0 0.0-0.1 10^3/uL Immature Granulocyte # (Auto) 0.0 0.0-0.1 10^3/uL Blood Gas Puncture Site UNK Blood Gas Patient Temperature 36.5 Arterial Blood pH 7.38 7.37-7.43 Arterial Blood Partial Pressure CO2 57 H 35-45 MMHG Arterial Blood Partial Pressure O2 107 H 79-93 MMHG Arterial Blood HCO3 33 H 23-27 MMOL/L Arterial Blood Total CO2 34.8 H 21.0-31.0 MMOL/L Arterial Blood Oxygen Saturation 99 94-100 % Arterial Blood Base Excess 7.7 H -2.5-2.5 MMOL/L [place] Test UNK Blood Gas Ventilator Setting NO Blood Gas Inspired Oxygen 2 L Sodium Level 143 135-145 MMOL/L Potassium Level 3.9 3.6-5.0 MMOL/L Chloride Level 102 98-107 MMOL/L Carbon Dioxide Level 32 21-32 MMOL/L Anion Gap 9 5-14 MMOL/L Blood Urea Nitrogen 20 H 7-18 MG/DL Creatinine 0.75 0.60-1.30 MG/DL Estimat Glomerular Filtration Rate 95 BUN/Creatinine Ratio 27 Glucose Level 94 70-105 MG/DL Calcium Level 8.8 8.5-10.1 MG/DL Corrected Calcium 9.3 8.5-10.1 MG/DL Total Bilirubin 0.4 0.1-1.0 MG/DL Aspartate Amino Transf (AST/SGOT) 13 5-34 U/L Alanine Aminotransferase (ALT/SGPT) 16 0-55 U/L Alkaline Phosphatase 84 40-136 U/L B-Type Natriuretic Peptide 386.2 H <100.0 PG/ML Total Protein 6.3 L 6.4-8.2 GM/DL Albumin 3.4 3.2-4.5 GM/DL My Orders Orders - RADHA AGUDELO APRN Arterial Blood Gas (12/07/21 14:37) Cbc With Automated Diff (12/07/21 14:37) Procalcitonin (Pct) (12/07/21 14:37) Comprehensive Metabolic Panel (12/07/21 14:37) Bnp Alex (12/07/21 14:37) Ekg Tracing (12/07/21 14:37) Chest 1 View, Ap/Pa Only (12/07/21 14:37) Ed Iv/Invasive Line Start (12/07/21 14:37) Vital Signs/I&O 12/07/21 12/07/21 14:29 14:46 Temp 36.5 Pulse 58 Resp 22 B/P (MAP) 156/68 (97) Pulse Ox 98 O2 Delivery Nasal Cannula Nasal Cannula O2 Flow Rate 2.00 2.50 Capillary Refill : Departure Communication (Admissions) NAME: ANTHONY TROTTER [facility] REC#: [id number] PT STATUS: REG ER : 1950 PHYSICIAN: RADHA AGUDELO APRN ADMIT DATE: 12/07/21/ER Draft Date of Exam:12/07/21 CHEST 1 VIEW, AP/PA ONLY INDICATION: Shortness of breath and COPD. TIME OF EXAM: 3:02 p.m. FINDINGS: The heart is enlarged but stable. Interstitial markings are prominent. Areas of mid and lower lung field consolidation appear improved with overall improved aeration. There may be some persistent infiltrate in the left base. There is some mild blunting of the left costophrenic angle suggestive of minimal pleural fluid. No pneumothorax is seen. IMPRESSION: Overall improved aeration of both lungs when compared with exam from 10/23/2021. Dictated on workstation # [id number] Dict: 12/07/21 1506 Trans: 12/07/21 1511 [id number] Interpreted by: DWIGHT KRUEGER MD Electronically signed by: Impression Primary Impression: COPD exacerbation Disposition: HOME, SELF-CARE Condition: Stable Departure-Patient Inst. Decision time for Depature: 15:23 Referrals: NO,LOCAL PHYSICIAN (PCP/Family) Primary Care Physician Patient Instructions: COPD Exacerbation, Adult ED Add. Discharge Instructions: 1. Steroids and antibiotics as directed. Return to ER for concerns. All discharge instructions reviewed with patient and/or family. Voiced understanding. Scripts Albuterol Sulfate (Albuterol Sulfate) 2.5 Mg/3 Ml Vial.neb 2.5 MG INH Q4H PRN for WHEEZING, #50 EA 1 Refill Prov: RADHA AGUDELO APRN 12/07/21 Cefuroxime Axetil (Cefuroxime) 250 Mg Tablet 250 MG PO BID, #10 TAB Prov: RADHA AGUDELO APRN 12/07/21 Prednisone (Prednisone) 10 Mg Tab.ds.pk 10 MG PO DAILY, #21 EA Take 6 tabs(60mg)daily,decrease by 1 tab(10MG)daily. Prov: RADHA AGUDELO APRN 12/07/21 RADHA AGUDELO APRN Dec 07, 2021 14:45
[2021-12-07 14:46] LABS: ABG BASE EXCESS 7.7 MMOL/L (-2.5-2.5); ABG OXYGEN SATURATION 99 % (94-100); ABG PCO2 57 MMHG (35-45); ABG PH 7.38 (7.37-7.43); ABG PO2 107 MMHG (79-93); ABG TCO2 34.8 MMOL/L (21.0-31.0)
[2021-12-07 14:47] LABS: BASOPHILS % (AUTO) 0 % (0-10); EOSINOPHILS # (AUTO) 0.1 10^3/uL (0.0-0.3); EOSINOPHILS % (AUTO) 1 % (0-10); HEMATOCRIT 37 % (40-54); INSPIRED O2 2 L; LYMPHOCYTES # (AUTO) 2.1 10^3/uL (1.0-4.0); LYMPHOCYTES % (AUTO) 28 % (12-44); MEAN CORPUSCULAR HEMOGLOBIN 29 pg (25-34); MEAN CORPUSCULAR HGB CONC 30 g/dL (32-36); MEAN CORPUSCULAR VOLUME 97 fL (80-99); MEAN PLATELET VOLUME 10.1 fL (9.0-12.2); MONOCYTES # (AUTO) 0.8 10^3/uL (0.0-1.0); MONOCYTES % (AUTO) 10 % (0-12); NEUTROPHILS # (AUTO) 4.7 10^3/uL (1.8-7.8); NEUTROPHILS % (AUTO) 61 % (42-75); PATIENT TEMP 36.5; PLATELET COUNT 173 10^3/uL (130-400); VENTILATOR NO; WHITE BLOOD COUNT 7.7 10^3/uL (4.3-11.0)
[2021-12-07] MEDS ORDERED: FURO40TA4 PO (14:50)
[2021-12-07] MEDS ORDERED: GUAI200T4 PO (14:50)
[2021-12-07 14:52] LABS: ALBUMIN 3.4 GM/DL (3.2-4.5); POTASSIUM 3.9 MMOL/L (3.6-5.0)
[2021-12-07 14:54] LABS: CALCIUM 8.8 MG/DL (8.5-10.1)
[2021-12-07 14:55] LABS: TOTAL PROTEIN 6.3 GM/DL (6.4-8.2)
[2021-12-07 14:57] LABS: BILIRUBIN,TOTAL 0.4 MG/DL (0.1-1.0)
[2021-12-07 14:59] LABS: CREATININE SERUM 0.75 MG/DL (0.60-1.30)
--- NOTE | 2021-12-07 15:11 | Diagnostic Imaging Report ---
INDICATION: Shortness of breath and COPD. TIME OF EXAM: 3:02 p.m. FINDINGS: The heart is enlarged but stable. Interstitial markings are prominent. Areas of mid and lower lung field consolidation appear improved with overall improved aeration. There may be some persistent infiltrate in the left base. There is some mild blunting of the left costophrenic angle suggestive of minimal pleural fluid. No pneumothorax is seen. IMPRESSION: Overall improved aeration of both lungs when compared with exam from 10/23/2021. Dictated by: Dictated on workstation # [id number]
[2021-12-07] MEDS ORDERED: CEFU250T80 PO (15:25)
[2021-12-07] MEDS ORDERED: PRED10TA22 PO (15:25)
[2021-12-07] MEDS ORDERED: ALBU2.5V4 INH (15:32)
[2021-12-07] MEDS ORDERED: RT-ALBUTEROL/IPRATROPIUM 3 ML (DUONEB) VIAL INH ONE (15:45)
[2021-12-07] MEDS ORDERED: methylPREDNISolone 125 MG (Solu-MEDROL) VIAL IVP ONE (15:45)
[2021-12-07] MEDS ORDERED: RT-ALBUTEROL/IPRATROPIUM 3 ML (DUONEB) VIAL ONE (15:49)
[2021-12-07 16:00] VITALS: BP 150/71
== END 2021-12-07 16:00 | disposition home or self-care (01) ==
LOC: EDUNIT# 14:21 → ER 14:23
DX: J44.1 Chronic obstructive pulmonary disease with (acute) exacerbation (principal); F17.210 Nicotine dependence, cigarettes, uncomplicated; Z99.81 Dependence on supplemental oxygen; Z86.16 Personal history of COVID-19; Z86.718 Personal history of other venous thrombosis and embolism; Z79.01 Long term (current) use of anticoagulants
CPT/HCPCS: 36415; 71045; 80053; 82805; 83880; 84145; 85025; 93005

== ENCOUNTER 2021-12-27 23:53 | Inpatient (IN) | payer OTHER ==
[~2021-12-27] VITALS: Ht 182.2 cm; Wt 79.3 kg
[~2021-12-27 23:53] MED LIST changes: +ALBU2.5V4 INH; +CEFU250T80 PO; +FURO40TA4 PO; +GUAI200T4 PO; +PRED10TA22 PO
[2021-12-28 00:15] LABS: BASOPHILS % (AUTO) 0 % (0-10); EOSINOPHILS # (AUTO) 0.2 10^3/uL (0.0-0.3); EOSINOPHILS % (AUTO) 2 % (0-10); HEMATOCRIT 38 % (40-54); HEMOGLOBIN 11.4 g/dL (13.3-17.7); LYMPHOCYTES # (AUTO) 2.7 10^3/uL (1.0-4.0); LYMPHOCYTES % (AUTO) 32 % (12-44); MEAN CORPUSCULAR HEMOGLOBIN 28 pg (25-34); MEAN CORPUSCULAR HGB CONC 30 g/dL (32-36); MEAN CORPUSCULAR VOLUME 93 fL (80-99); MONOCYTES # (AUTO) 0.8 10^3/uL (0.0-1.0); MONOCYTES % (AUTO) 9 % (0-12); NEUTROPHILS # (AUTO) 4.9 10^3/uL (1.8-7.8); NEUTROPHILS % (AUTO) 57 % (42-75); PLATELET COUNT 220 10^3/uL (130-400); WHITE BLOOD COUNT 8.7 10^3/uL (4.3-11.0)
[2021-12-28] MEDS ORDERED: NITROGLYCERIN 0.4 MG SL TABS BTL 25'S SL PRN (00:15)
[2021-12-28] MEDS ORDERED: NITROGLYCERIN 2% OINT 1 GM UNIT DOSE PACKET TOP ONE (00:15)
[2021-12-28] MEDS ORDERED: ASPIRIN 81 MG CHEW (CHILDREN'S ASA) PO ONE (00:15)
[2021-12-28] MEDS ORDERED: RT-ALBUTEROL/IPRATROPIUM 3 ML (DUONEB) VIAL INH ONE (00:15)
[2021-12-28] MEDS ORDERED: ONDANSETRON 4 MG/2 ML (SDV) Z0FRAN ONE (00:19)
--- NOTE | 2021-12-28 00:23 | ED Chest Pain ---
General Chief Complaint: Chest Pain Stated Complaint: CP,SWEATY,SOB Source: patient History of Present Illness Date Seen by Provider: Dec 28, 2021 Time Seen by Provider: 00:03 Initial Comments PT ARRIVES VIA POV FROM HOME WITH SON C/O MID STERNAL CHEST PAIN SINCE 0900 THIS AM PAIN BEGAN WHILE SITTING AND WATCHING TV NO RADIATION OF PAIN NOTHING WORSENS OR IMPROVES PAIN --HAS NOT TAKEN ANYTHING FOR PAIN, HAS BEEN PRESCRIBED NTG, BUT COULD NOT FIND IT HAS HISTORY OF CAD WITH STENT X 1 ALSO C/O SHORTNESS OF SHORTNESS OF BREATH--WORSE TODAY PT HAS COPD AND HAS INHALER AND NEBULIZER--USED THEM BOTH TWICE TODAY--LAST TIME WAS 1700 PT WEARS HOME O2 AT 2L/NC CONTINUOUSLY + SWEATS + NAUSEA. NO VOMITING ALSO C/O FEELING LIKE HE HAS A "KNOT" IN HIS EPIGASTRIC AREA HAS BEEN DIZZY AND FELT LIKE HE WAS GOING TO PASS OUT TODAY PT HAS HAD PALPITATIONS TODAY WELL--HAS HISTORY OF ATRIAL FIBRILLATION PT IS ON BLOOD THINNERS, AMIODARONE AND DILTIAZEM DENIES ANY MISSED DOSES OF MEDICATIONS OR CHANGES IN MEDICATIONS NO CHANGE IN CHRONIC LEG SWELLING--STATES IT IS ACTUALLY BETTER THAN IT HAS BEEN PT STATES HE WAS ADMITTED FOR 51 DAYS AT [facility] FROM AUGUST UNTIL OCTOBER FOR SEVERE GI BLEED, AND HAD 15 UNITS OF BLOOD--ALSO HAD COVID-19 AT THAT TIME PT ALSO DEVELOPED DVT OF RIGHT ARM AND P.E. DUE FROM PICC LINE IN RIGHT ARM PT'S FIRST VISIT HERE WAS 10/22/21 AND WAS ADMITTED UNTIL 10/28/21 FOR ASPIRATION PNEUMONIA SEEN HERE 11/18/21 FOR LEG AND L ARM SWELLING WORK UP WAS NEGATIVE FOR DVT AND PE AT THAT TIME. SEEN HER 12/07/21 FOR COPD EXACERBATION--WORK UP ESSENTIALLY NEGATIVE AND DISMISSED HOME WITH ALBUTEROL INHALER, CEFUROXIME AND PREDNISONE TAPER. 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 OCONNELL AT [facility] Allergies and Home Medications Allergies Coded Allergies: gluten (Unverified Allergy, Unknown, 10/26/21) Pt has Celiac disease Patient Home Medication List Albuterol Sulfate (Proair Hfa) 1 Puff Puff, 2 PUFF IH Q4H PRN for SHORTNESS OF BREATH, (Reported) Entered as Reported by: IVET MARTÍNEZ on 10/23/211957 Albuterol Sulfate (Albuterol Sulfate) 2.5 Mg/3 Ml Vial.neb, 2.5 MG INH Q4H PRN for WHEEZING Prescribed by: RADHA AGUDELO on 12/07/21 153 Albuterol/Ipratropium (Combivent Respimat Inhal [place]) 4 Gm Aero, 1 PUFF IH QID, (Reported) Entered as Reported by: IVET MARTÍNEZ on 10/23/211957 Alprazolam (Xanax) 0.25 Mg Tablet, 0.25 MG PO TID PRN for ANXIETY, (Reported) Entered as Reported by: IVET MARTÍNEZ on 10/23/211957 Amiodarone HCl (Amiodarone HCl) 200 Mg Tablet, 400 MG PO DAILY, (Reported) Entered as Reported by: IVET MARTÍNEZ on 10/23/211957 Apixaban (Eliquis) 5 Mg Tablet, 5 MG PO BID Prescribed by: GHASSAN NAVAS on 10/28/21 111 Atorvastatin Calcium (Atorvastatin Calcium) 20 Mg Tablet, 10 MG PO HS, (Re ported) Entered as Reported by: TATE LINDA on 10/25/21 123 Cefuroxime Axetil (Cefuroxime) 250 Mg Tablet, 250 MG PO BID Prescribed by: RADHA AGUDELO on 12/07/21 1525 Cyanocobalamin (Vitamin B-12) (B-12) 1,000 Mcg Tablet, 1,000 MCG PO DAILY, (Reported) Entered as Reported by: IVET MARTÍNEZ on 10/23/211957 Diltiazem HCl (Diltiazem HCl) 90 Mg Tablet, 90 MG PO HS, (Reported) Entered as Reported by: TATE LINDA on 10/25/21 1234 Docusate Sodium (Docusate Sodium) 100 Mg Capsule, 200 MG PO DAILY, (Reported) Entered as Reported by: IVET MARTÍNEZ on 10/23/211957 Furosemide (Furosemide) 40 Mg Tablet, 40 MG PO DAILY, (Reported) Entered as Reported by: RODRIGUEZ MARIO on 12/07/21 1450 Guaifenesin (Guaifenesin) 200 Mg Tablet, 200 MG PO TID, (Reported) Entered as Reported by: RODRIGUEZ MARIO on 12/07/21 145 Levothyroxine Sodium (Levothyroxine Sodium) 200 Mcg Tablet, 200 MCG PO DAILY, (Reported) Entered as Reported by: TATE LINDA on 10/25/21 1234 Mirtazapine (Mirtazapine) 45 Mg Tablet, 22.5 MG PO HS, (Reported) Entered as Reported by: TATE LINDA on 10/25/21 1234 Omeprazole (Omeprazole) 20 Mg Tab.rap.dr, 40 MG PO BIDAC, (Reported) Entered as Reported by: TATE LINDA on 10/25/21 1234 Prednisone (Prednisone) 10 Mg Tab.ds.pk, 10 MG PO DAILY Prescribed by: RADHA AGUDELO on 12/07/21 1525 Tamsulosin HCl (Flomax) 0.4 Mg Cap, 0.4 MG PO 1800, (Reported) Entered as Reported by: IVET MARTÍNEZ on 10/23/211957 Vitamin E Acetate (Vitamin E) 400 Unit Capsule, 400 UNIT PO DAILY, (Reported) Entered as Reported by: IVET MARTÍNEZ on 10/23/211957 Review of Systems Review of Systems Constitutional: see HPI, diaphoresis, dizziness, weakness EENTM: No Symptoms Reported Respiratory: See HPI; Denies Cough; Shortness of Air Cardiovascular: See HPI, Chest Pain, Edema, Irregular Heart Rate, Lightheade dness, Palpitations; Denies Syncope (NEAR-SYNCOPE) Gastrointestinal: See HPI, Abdominal Pain, Nausea; Denies Vomiting Genitourinary: No Symptoms Reported Musculoskeletal: no symptoms reported Skin: no symptoms reported Psychiatric/Neurological: No Symptoms Reported Endocrine: No Symptoms Reported Hematologic/Lymphatic: No Symptoms Reported Past Qfecqjx-Ywamls-Qozaav Hx Immunizations Up To Date First/Initial COVID19 Vaccinat: 2020 Second COVID19 Vaccination Femi: 2020 Third COVID19 Vaccination Date: 2020 Past Medical History Surgery/Hospitalization HX: RECENTLY 51DAYS AT [facility], GI BLEED AND COVID Atrial Fibrillation, High Cholesterol Gastrointestinal Bleed Family Medical History No Pertinent Family Hx Physical Exam Vital Signs Vital Signs - First Documented 12/28/21 00:02 Temp 36.8 Pulse 66 Resp 22 B/P (MAP) 200/85 (123) Pulse Ox 99 O2 Delivery Nasal Cannula O2 Flow Rate 2.00 Capillary Refill : Height, Weight, BMI Height: '" Weight: lbs. oz. kg; 22.00 BMI Method: General Appearance: WD/WN, Chronically ill, Mild Distress Neck: Normal Inspection Respiratory: Decreased Breath Sounds (DECREASED AERATION IN ALL LUNG ROONEY), Other (MILDLY DYSPNEIC BUT ABLE TO TALK IN FULL SENTENCES. MILD INTERCOSTAL RETRACTIONS AND ABDOMINAL BREATHING) Cardiovascular: Regular Rate, Rhythm, No JVD, No Murmur Gastrointestinal: Soft; No Distended, No Guarding, No Hernia, No Mass, No Rebound; Tenderness (DIFFUSE UPPER ABDOMINAL TENDERNESS, MOST TENDER IN RUQ. ) Extremity: Normal Capillary Refill, No Calf Tenderness, Pedal Edema (2+ EDEMA BILATERALLY) Neurologic/Psychiatric: Alert, Oriented x3, No Motor/Sensory Deficits, art specialist II- XII Norm as Tested Skin: Diaphoresis, Pallor Progress/Results/Core Measures Results/Orders Lab Results Laboratory Tests Test 12/28/21 00:07 Range/Units White Blood Count 8.7 4.3-11.0 10^3/uL Red Blood Count 4.07 L 4.30-5.52 10^6/uL Hemoglobin 11.4 L 13.3-17.7 g/dL Hematocrit 38 L 40-54 % Mean Corpuscular Volume 93 80-99 fL Mean Corpuscular Hemoglobin 28 25-34 pg Mean Corpuscular Hemoglobin Concent 30 L 32-36 g/dL Red Cell Distribution Width 15.5 H 10.0-14.5 % Platelet Count 220 130-400 10^3/uL Mean Platelet Volume 10.0 9.0-12.2 fL Immature Granulocyte % (Auto) 1 % Neutrophils (%) (Auto) 57 42-75 % Lymphocytes (%) (Auto) 32 12-44 % Monocytes (%) (Auto) 9 0-12 % Eosinophils (%) (Auto) 2 0-10 % Basophils (%) (Auto) 0 0-10 % Neutrophils # (Auto) 4.9 1.8-7.8 10^3/uL Lymphocytes # (Auto) 2.7 1.0-4.0 10^3/uL Monocytes # (Auto) 0.8 0.0-1.0 10^3/uL Eosinophils # (Auto) 0.2 0.0-0.3 10^3/uL Basophils # (Auto) 0.0 0.0-0.1 10^3/uL Immature Granulocyte # (Auto) 0.0 0.0-0.1 10^3/uL Prothrombin Time 13.8 12.2-14.7 SEC INR Comment 1.0 0.8-1.4 Activated Partial Thromboplast Time 34 24-35 SEC D-Dimer 0.69 H 0.00-0.49 UG/ML Sodium Level 140 135-145 MMOL/L Potassium Level 4.6 3.6-5.0 MMOL/L Chloride Level 106 98-107 MMOL/L Carbon Dioxide Level 21 21-32 MMOL/L Anion Gap 13 5-14 MMOL/L Blood Urea Nitrogen 29 H 7-18 MG/DL Creatinine 0.85 0.60-1.30 MG/DL Estimat Glomerular Filtration Rate 92 BUN/Creatinine Ratio 34 Glucose Level 121 H 70-105 MG/DL Calcium Level 9.0 8.5-10.1 MG/DL Corrected Calcium 9.2 8.5-10.1 MG/DL Magnesium Level 2.0 1.6-2.4 MG/DL Total Bilirubin 0.3 0.1-1.0 MG/DL Aspartate Amino Transf (AST/SGOT) 18 5-34 U/L Alanine Aminotransferase (ALT/SGPT) 20 0-55 U/L Alkaline Phosphatase 86 40-136 U/L Total Creatine Kinase 29 L 30-200 U/L Creatine Kinase MB 2.4 <6.6 NG/ML Myoglobin 27.8 10.0-92.0 NG/ML Troponin I < 0.028 <0.028 NG/ML B-Type Natriuretic Peptide 106.4 H <100.0 PG/ML Total Protein 6.6 6.4-8.2 GM/DL Albumin 3.8 3.2-4.5 GM/DL Amylase Level 74 25-125 U/L Lipase 28 8-78 U/L My Orders Orders - REJI MERINO DO Ed Iv/Invasive Line Start (12/28/21 00:03) Ekg Tracing (12/28/21 00:03) O2 (12/28/21 00:03) Monitor-Rhythm Ecg Trace Only (12/28/21 00:03) Cbc With Automated Diff (12/28/21 00:03) Magnesium (12/28/21 00:03) Chest 1 View, Ap/Pa Only (12/28/21 00:03) Ekg Tracing (12/28/21 00:03) Comprehensive Metabolic Panel (12/28/21 00:03) Myoglobin Serum (12/28/21 00:03) Protime With Inr (12/28/21 00:03) Partial Thromboplastin Time (12/28/21 00:03) O2 (12/28/21 00:03) Ed Iv/Invasive Line Start (12/28/21 00:03) Creatine Kinase (12/28/21 00:03) Creatine Kinase Mb (12/28/21 00:03) Lipase (12/28/21 00:03) Amylase (12/28/21 00:03) Bnp Alex (12/28/21 00:03) Nitroglycerin 0.4 Mg Btl 25's (Nitrostat (12/28/21 00:15) Aspirin Chewable Tablet (Baby Aspirin Ch (12/28/21 00:15) Nitroglycerin Ointment (Nitrobid Ointme (12/28/21 00:15) Albuterol/Ipra Inhalation Soln (Duoneb I (12/28/21 00:15) Dexamethasone Injection (Decadron Injec (12/28/21 00:15) Svn Small Volume Nebulizer (12/28/21 00:15) Ondansetron Injection (Zofran Injectio (12/28/21 00:30) Fibrin Degradation Products (12/28/21 00:07) Troponin I Alex (12/28/21 00:07) Ondansetron Injection (Zofran Injectio (12/28/21 00:19) Morphine Injection (Morphine Injection (12/28/21 01:00) Ct [place] Chest/Noang Abd-Pelv W (12/28/21 00:55) Iohexol Injection (Omnipaque 350 Mg/Ml 1 (12/28/21 01:45) Sodium Chloride Flush (Catheter Flush Sy (12/28/21 01:45) Ns (Ivpb) (Sodium Chloride 0.9% Ivpb Bag (12/28/21 01:45) Morphine Injection (Morphine Injection (12/28/21 02:00) Metoprolol Succinate (Xl) Tab (Toprol Xl (12/28/21 02:02) Morphine Injection (Morphine Injection (12/28/21 02:05) Morphine Injection (Morphine Injection (12/28/21 02:15) Medications Given in ED Current Medications Medications Dose Ordered Sig/Darion Route Start Time Stop Time Status Last Admin Dose Admin Albuterol/ Ipratropium 3 ml ONCE ONCE INH 12/28/21 00:15 12/28/21 00:17 DC 12/28/21 00:34 3 ML Aspirin 324 mg ONCE ONCE PO 12/28/21 00:15 12/28/21 00:16 DC 12/28/21 00:15 324 MG Dexamethasone Sodium Phosphate 20 mg ONCE ONCE IH 12/28/21 00:15 12/28/21 00:17 DC 12/28/21 00:35 20 MG Morphine Sulfate 4 mg ONCE ONCE IVP 12/28/21 01:00 12/28/21 01:01 DC 12/28/21 01:11 4 MG Morphine Sulfate 4 mg ONCE ONCE IVP 12/28/21 02:15 12/28/21 02:16 12/28/21 02:10 4 MG Nitroglycerin 1 inch ONCE ONCE TOP 12/28/21 00:15 12/28/21 00:17 DC 12/28/21 00:24 1 INCH Ondansetron HCl 4 mg ONCE ONCE IVP 12/28/21 00:30 12/28/21 00:45 DC 12/28/21 00:24 4 MG Vital Signs/I&O 12/28/21 12/28/21 12/28/21 00:02 00:02 00:35 Temp 36.8 Pulse 66 Resp 22 B/P (MAP) 200/85 (123) Pulse Ox 99 98 97 O2 Delivery Nasal Cannula Nasal Cannula Nasal Cannula O2 Flow Rate 2.00 2.50 Progress Progress Note : Progress Note GIVEN ASPIRIN AND NITROPASTE MINIMAL RELIEF OF CHEST PAIN WITH NTG, AND ONLY MILD IMPROVEMENT IN BLOOD PRESSURE. GIVEN MORPHINE FOR PAIN DURING ER COURSE--STATES HIS PAIN IS NOT MUCH BETTER, BUT IS NOW POINTING TO RUQ AREA OF PAIN AND NO LONGER POINTING TO CHEST. Initial ECG Impression Date: Dec 28, 2021 Initial ECG Impression Time: 00:02 Initial ECG Rate: 61 Initial ECG Rhythm: Normal Sinus (LAFB) Diagnostic Imaging Comments CXR-- Reviewed: Reviewed by Me Departure Departure-Patient Inst. Referrals: NO,LOCAL PHYSICIAN (PCP/Family) Primary Care Physician REJI MERINO DO Dec 28, 2021 00:22
[2021-12-28 00:29] LABS: ALBUMIN 3.8 GM/DL (3.2-4.5); CHLORIDE 106 MMOL/L (98-107); POTASSIUM 4.6 MMOL/L (3.6-5.0); SODIUM 140 MMOL/L (135-145)
[2021-12-28 00:30] LABS: AMYLASE 74 U/L (25-125)
[2021-12-28] MEDS ORDERED: ONDANSETRON 4 MG/2 ML (SDV) Z0FRAN IVP ONE (00:30)
[2021-12-28 00:31] LABS: FIBRIN DEGRADATION PRODUCTS 0.69 UG/ML (0.00-0.49); GLUCOSE 121 MG/DL (70-105); PROTHROMBIN TIME PATIENT 13.8 SEC (12.2-14.7)
[2021-12-28 00:32] LABS: TOTAL PROTEIN 6.6 GM/DL (6.4-8.2)
[2021-12-28 00:33] LABS: BILIRUBIN,TOTAL 0.3 MG/DL (0.1-1.0); CARBON DIOXIDE 21 MMOL/L (21-32)
[2021-12-28 00:35] LABS: ALKALINE PHOSPHATASE 86 U/L (40-136); CREATININE SERUM 0.85 MG/DL (0.60-1.30); GFR ESTIMATED 92
[2021-12-28 00:36] LABS: BUN/CREATININE RATIO 34
[2021-12-28 00:38] LABS: ALANINE AMINOTRANSFERASE 20 U/L (0-55)
[2021-12-28 00:39] LABS: CREATINE KINASE 29 U/L (30-200); LIPASE 28 U/L (8-78)
[2021-12-28 00:46] LABS: CREATINE KINASE MB 2.4 NG/ML (<6.6)
[2021-12-28] MEDS ORDERED: morphine INJ 10 MG/ML 1ML (SYR OR VIAL) IVP ONE ×2 (01:00→02:15)
[2021-12-28] MEDS ORDERED: IOHEXOL 350 MG/ML 100 ML (OMNIPAQUE 350) VIAL IV ONE (01:45)
[2021-12-28] MEDS ORDERED: CATHETER FLUSH 10 ML SYR IV PRN (01:45)
[2021-12-28] MEDS ORDERED: NS 100 ML (IVPB) BAG IV ONE (01:45)
[2021-12-28] MEDS ORDERED: morphine INJ 4 MG/ML 1 ML (VIAL/SYRINGE) IVP ONE (02:00)
[2021-12-28] MEDS ORDERED: meTOproloL SUCCINATE 50 MG (TOPROL XL) TAB PO ONE (02:02)
[2021-12-28] MEDS ORDERED: morphine INJ 10 MG/ML 1ML (SYR OR VIAL) ONE (02:05)
[2021-12-28] MEDS ORDERED: methylPREDNISolone 125 MG (Solu-MEDROL) VIAL IVP ONE (02:45)
[2021-12-28 03:28] VITALS: BP 200/85
[2021-12-28] MEDS ORDERED: D5 1/2 NS W/KCL 20 MEQ/L 1,000 ML IV ONE (03:32)
--- NOTE | 2021-12-28 03:44 | Tele-ICU Consult ---
History of Present Illness History of Present Illness Date Seen by Provider: Dec 28, 2021 Time Seen by Provider: 03:37 Date of Admission ED COURSE:PT ARRIVES VIA POV FROM HOME WITH SON C/O MID STERNAL CHEST PAIN SINCE 0900 THIS AM PAIN BEGAN WHILE SITTING AND WATCHING TV NO RADIATION OF PAIN NOTHING WORSENS OR IMPROVES PAIN --HAS NOT TAKEN ANYTHING FOR PAIN, HAS BEEN PRESCRIBED NTG, BUT COULD NOT FIND IT HAS HISTORY OF CAD WITH STENT X 1 ALSO C/O SHORTNESS OF SHORTNESS OF BREATH--WORSE TODAY PT HAS COPD AND HAS INHALER AND NEBULIZER--USED THEM BOTH TWICE TODAY--LAST TIME WAS 1700 PT WEARS HOME O2 AT 2L/NC CONTINUOUSLY + SWEATS + NAUSEA. NO VOMITING ALSO C/O FEELING LIKE HE HAS A "KNOT" IN HIS EPIGASTRIC AREA HAS BEEN DIZZY AND FELT LIKE HE WAS GOING TO PASS OUT TODAY PT HAS HAD PALPITATIONS TODAY WELL--HAS HISTORY OF ATRIAL FIBRILLATION PT IS ON BLOOD THINNERS, AMIODARONE AND DILTIAZEM DENIES ANY MISSED DOSES OF MEDICATIONS OR CHANGES IN MEDICATIONS NO CHANGE IN CHRONIC LEG SWELLING--STATES IT IS ACTUALLY BETTER THAN IT HAS BEEN PT STATES HE WAS ADMITTED FOR 51 DAYS AT [facility] FROM AUGUST UNTIL OCTOBER FOR SEVERE GI BLEED, AND HAD 15 UNITS OF BLOOD--ALSO HAD COVID-19 AT THAT TIME PT ALSO DEVELOPED DVT OF RIGHT ARM AND P.E. DUE FROM PICC LINE IN RIGHT ARM PT'S FIRST VISIT HERE WAS 10/22/21 AND WAS ADMITTED UNTIL 10/28/21 FOR ASPIRATION PNEUMONIA SEEN HERE 11/18/21 FOR LEG AND L ARM SWELLING WORK UP WAS NEGATIVE FOR DVT AND PE AT THAT TIME. SEEN HER 12/07/21 FOR COPD EXACERBATION--WORK UP ESSENTIALLY NEGATIVE AND DISMISSED HOME WITH ALBUTEROL INHALER, CEFUROXIME AND PREDNISONE TAPER. Pt was admitted to icu for non stemi/ copd exacerbation/ uncontrolled BP currently pt is not complaining of chest pain or sob. appears comfortable Allergies and Home Medications Allergies Coded Allergies: gluten (Unverified Allergy, Unknown, 10/26/21) Pt has Celiac disease Home Medications Albuterol Sulfate 1 Puff Puff, 2 PUFF IH Q4H PRN for SHORTNESS OF BREATH, (Reported) Albuterol Sulfate 2.5 Mg/3 Ml Vial.neb, 2.5 MG INH Q4H PRN for WHEEZING Prescribed by: RADHA AGUDELO on 12/07/21 1532 Albuterol/Ipratropium 4 Gm Aero, 1 PUFF IH QID, (Reported) Alprazolam 0.25 Mg Tablet, 0.25 MG PO TID PRN for ANXIETY, (Reported) Amiodarone HCl 200 Mg Tablet, 400 MG PO DAILY, (Reported) TAKES 2 (200MG) TABS Apixaban 5 Mg Tablet, 5 MG PO BID Prescribed by: GHASSAN NAVAS on 10/28/21 1112 Atorvastatin Calcium 20 Mg Tablet, 10 MG PO HS, (Reported) TAKES OF A 20MG Cefuroxime Axetil 250 Mg Tablet, 250 MG PO BID Prescribed by: RADHA AGUDELO on 12/07/21 152 Cyanocobalamin (Vitamin B-12) 1,000 Mcg Tablet, 1,000 MCG PO DAILY, (Reported) Diltiazem HCl 90 Mg Tablet, 90 MG PO HS, (Reported) Docusate Sodium 100 Mg Capsule, 200 MG PO DAILY, (Reported) TAKES 2 (100MG) CAPS Furosemide 40 Mg Tablet, 40 MG PO DAILY, (Reported) Guaifenesin 200 Mg Tablet, 200 MG PO TID, (Reported) Levothyroxine Sodium 200 Mcg Tablet, 200 MCG PO DAILY, (Reported) Mirtazapine 45 Mg Tablet, 22.5 MG PO HS, (Reported) TAKES OF A 45MG TAB Omeprazole 20 Mg Tab.rap.dr, 40 MG PO BIDAC, (Reported) TAKES 2 (20MG) CAPS Prednisone 10 Mg Tab.ds.pk, 10 MG PO DAILY Take 6 tabs(60mg)daily,decrease by 1 tab(10MG)daily. Prescribed by: RADHA AGUDELO on 12/07/211524 Tamsulosin HCl 0.4 Mg Cap, 0.4 MG PO 1800, (Reported) TAKES 30 MINUTES AFTER MEAL Vitamin E Acetate 400 Unit Capsule, 400 UNIT PO DAILY, (Reported) Past Medical/Social/Family Hx Patient Social History Tobacco Use?: Yes Tobacco type used: Cigarettes Smoking Status: Current Everyday Smoker Substance use?: No Alcohol Use?: No Immunizations Up To Date Influenza Vaccine Up-to-Date: Yes; Up-to-Date First/Initial COVID19 Vaccinat: 2020 Second COVID19 Vaccination Femi: 2020 Tetanus Booster (TDap): Unknown Hepatitis A: No Hepatitis B: No TB Skin Test: None Current Status Primary Language: Congolese Preferred Spoken Language: Congolese Past Medical History HTN, COPD Review of Systems Constitutional: see HPI Respiratory: cough, phlegm, short of breath Focused Exam Height, Weight, BMI Height: '" Weight: lbs. oz. kg; 22.00 BMI Method: Exam Exam Patient acknowledged, consented, and participated in this virtual visit which was conducted using real time audio/video Vital Signs Date Time Temp Pulse Resp B/P (MAP) Pulse Ox O2 Delivery O2 Flow Rate FiO2 12/28/21 00:35 97 Nasal Cannula 2.50 12/28/21 00:02 98 Nasal Cannula 2.00 12/28/21 00:02 36.8 66 22 200/85 (123) 99 Nasal Cannula Height & Weight Height: '" Weight: lbs. oz. kg; 22.00 BMI Method: General Appearance: No Apparent Distress, WD/WN, Chronically ill, Mild Distress Neck: Normal Inspection Respiratory: Decreased Breath Sounds (DECREASED AERATION IN ALL LUNG ROONEY), Other (MILDLY DYSPNEIC BUT ABLE TO TALK IN FULL SENTENCES. MILD INTERCOSTAL RETRACTIONS AND ABDOMINAL BREATHING) Cardiovascular: Regular Rate, Rhythm, No JVD, No Murmur Capillary Refill: Less Than 3 Seconds Extremity: Normal Capillary Refill, No Calf Tenderness, Pedal Edema (2+ EDEMA BILATERALLY) Neurologic/Psychiatric: Alert, Oriented x3, No Motor/Sensory Deficits, book repairer II- XII Norm as Tested Skin: Diaphoresis, Pallor Results Lab Laboratory Tests 12/28/21 00:07 Assessment/Plan Assessment/Plan COPD exacerbation -possible due to uri / tracheobronchitis -steroids/ abx/ nebs -we will start zithromax ct angio 01/[address] angio 12/07: bilat infiltrates improved in my opinion/ we will follow official report. Non STEMI -trend trops/ EKG -cardio eval HTN -management wit hiv pushes/ hydralazine 5mg iv JORGITO TOLENTINO MD Dec 28, 2021 03:44
[2021-12-28] MEDS ORDERED: AZITHROMYCIN INJECTION 500 MG in NS (IVPB) 250 ML IV ONE (03:45)
[2021-12-28] MEDS ORDERED: RT-ALBUTEROL SULF 2.5 MG/3 ML PRE-MIX VIAL INH PRN (03:45)
[2021-12-28] MEDS ORDERED: hydrALAZINE (APESOLINE) 20 MG/ML VIAL IV ONE (03:45)
[2021-12-28] MEDS ORDERED: morphine INJ 4 MG/ML 1 ML (VIAL/SYRINGE) IV PRN (04:15)
[2021-12-28] MEDS ORDERED: ONDANSETRON 4 MG/2 ML (SDV) Z0FRAN IVP PRN (04:15)
[2021-12-28 04:20] LABS: BASOPHILS % (AUTO) 0 % (0-10); EOSINOPHILS % (AUTO) 0 % (0-10); HEMATOCRIT 37 % (40-54); HEMOGLOBIN 11.5 g/dL (13.3-17.7); LYMPHOCYTES # (AUTO) 0.4 10^3/uL (1.0-4.0); LYMPHOCYTES % (AUTO) 4 % (12-44); MEAN CORPUSCULAR HEMOGLOBIN 29 pg (25-34); MEAN CORPUSCULAR HGB CONC 31 g/dL (32-36); MEAN CORPUSCULAR VOLUME 93 fL (80-99); MEAN PLATELET VOLUME 10.2 fL (9.0-12.2); MONOCYTES # (AUTO) 0.3 10^3/uL (0.0-1.0); MONOCYTES % (AUTO) 3 % (0-12); NEUTROPHILS # (AUTO) 8.9 10^3/uL (1.8-7.8); NEUTROPHILS % (AUTO) 92 % (42-75); PLATELET COUNT 195 10^3/uL (130-400); WHITE BLOOD COUNT 9.7 10^3/uL (4.3-11.0)
[2021-12-28 04:30] LABS: ALBUMIN 3.6 GM/DL (3.2-4.5); CHLORIDE 105 MMOL/L (98-107); POTASSIUM 4.9 MMOL/L (3.6-5.0); SODIUM 138 MMOL/L (135-145)
[2021-12-28 04:33] LABS: GLUCOSE 164 MG/DL (70-105); TOTAL PROTEIN 6.3 GM/DL (6.4-8.2)
[2021-12-28 04:34] LABS: BILIRUBIN,TOTAL 0.3 MG/DL (0.1-1.0); CARBON DIOXIDE 21 MMOL/L (21-32)
[2021-12-28] MEDS: D5 1/2 NS W/KCL 20 MEQ/L 1,000 ML IV SCH ×2 (04:34→18:42)
[2021-12-28 04:36] LABS: ALKALINE PHOSPHATASE 82 U/L (40-136); GFR ESTIMATED 93; PHOSPHORUS 3.4 MG/DL (2.3-4.7)
[2021-12-28 04:37] LABS: BUN/CREATININE RATIO 35
[2021-12-28 04:39] LABS: ALANINE AMINOTRANSFERASE 23 U/L (0-55); MAGNESIUM 1.9 MG/DL (1.6-2.4)
[2021-12-28 04:56] LABS: ELLIPT/OVALOCYTES SLIGHT; LYMPHOCYTES % (MANUAL) 6 %; MICROCYTOSIS SLIGHT; MONOCYTES % (MANUAL) 4 %; NEUTROPHILS % (MANUAL) 90 %
[2021-12-28] MEDS ORDERED: methylPREDNISolone 40 MG/ML (Solu-MEDROL) VIAL IV SCH (06:00)
--- NOTE | 2021-12-28 06:08 | Diagnostic Imaging Report ---
EXAMINATION: Chest 1 view HISTORY: Chest pain COMPARISON: 12/07/2021 FINDINGS: Heart size is mildly enlarged with prominence of pulmonary vasculature. Patchy interstitial opacities are seen throughout both lungs. No pleural effusion or pneumothorax. The osseous structures are intact. IMPRESSION: 1. Stable cardiomegaly and pulmonary vascular congestion. Patchy interstitial opacities in both lungs which can be seen with pulmonary edema or atypical infection. Dictated by: Dictated on workstation # [id number]
--- NOTE | 2021-12-28 06:29 | Diagnostic Imaging Report ---
EXAMINATION: CT angiography of the chest, CT of the abdomen and pelvis. TECHNIQUE: Contrast enhanced thin section helical images were obtained through the chest, abdomen and pelvis with intravenous contrast timed for the optimal opacification of the arterial structures of the chest per CTA protocol. Post-processing, reconstructions and interpretation of angiographic images of the vessels was performed. 3D MIP reconstructions were performed and reviewed. All CT scans use one or more of the following dose optimizing techniques: automated exposure control, MA and/or KvP adjustment based on a patient size and exam type, or iterative reconstruction. HISTORY: Chest and abdominal pain COMPARISON: 11/18/2021 FINDINGS: Vascular: No filling defects within the pulmonary arteries. Thoracic aorta is normal in caliber. Calcification of the aorta and coronary vessels. Thyroid: The thyroid is normal. Mediastinum: Heart size normal with trace pericardial effusion. No suspicious lymphadenopathy. Lungs and airways: There are background emphysematous changes of the lungs. Small bilateral pleural effusions. Atelectasis or groundglass within the dependent lungs. Partially calcified opacity within the right lower lobe measuring up to 3.1 cm. Atelectasis or consolidation within the lingula. A few scattered calcified granulomas are present. There is calcification seen along the right pleura. No pneumothorax. The airways are normal. Solid organs: The liver is normal without focal lesion. Multiple layering hyperdense stones within the gallbladder. There is no biliary ductal dilation. Pancreas is normal. Spleen is normal. Adrenal glands are normal. The kidneys are normal without hydronephrosis. Bowel: The stomach and small bowel are normal without obstruction. There is mild wall thickening seen throughout the colon. No findings of acute appendicitis. Peritoneum: There is no intraperitoneal free fluid or free air. No suspicious lymphadenopathy. Vasculature: Calcification of the aorta without aneurysm. Vascular stent is present within the left common iliac. Musculoskeletal: Degenerative changes of the spine without suspicious osseous lesion or compression fracture. Pelvis: The prostate gland is normal. The urinary bladder is normal. IMPRESSION: 1. No findings of pulmonary embolus. 2. Small bilateral pleural effusions with atelectasis or consolidation of the lung bases. 3. More focal 3 cm area of masslike atelectasis or consolidation in the right lower lobe. This could represent round atelectasis or resolving consolidation and a follow-up CT chest in one month would be recommended. 4. Wall thickening seen throughout the colon concerning for infectious or inflammatory colitis. 4. Agree with preliminary interpretation. Dictated by: Dictated on workstation # [id number]
[2021-12-28] MEDS: NITROGLYCERIN 2% OINT 1 GM UNIT DOSE PACKET TOP SCH ×3 (06:32→18:41)
--- NOTE | 2021-12-28 07:50 | Diagnostic Imaging Report ---
EXAMINATION: Chest 1 view HISTORY: Chest pain COMPARISON: 12/28/2021 FINDINGS: Stable cardiomegaly and findings of pulmonary vascular congestion. Stable patchy interstitial opacities seen throughout both lungs. No pleural effusion or pneumothorax. The osseous structures are intact. IMPRESSION: 1. Stable cardiomegaly and pulmonary vascular congestion. Stable interstitial opacities seen throughout the lungs. Dictated by: Dictated on workstation # [id number]
--- NOTE | 2021-12-28 08:27 | Consultation-Cardiology ---
HPI-Cardiology Cardiology Consultation Date of Consultation 12/28/21 Date of Admission Time Seen by Provider: 08:21 Indication: Chest pain HPI 71 years old gentleman with a history of coronary artery disease, stent done about 2 years ago, COVID-19 pneumonia with prolonged hospitalization in September and October 2021. Came into the emergency room for acute chest pain described as severe pain in the retrosternal area and upper epigastric area. Shortness of breath. No palpitation. No syncope, work-up showed gallstone. On my evaluation he was feeling better, his chest pain has improved. Denied any palpitation. Home Medications & Allergies Allergies: Coded Allergies: gluten (Unverified Allergy, Unknown, 10/26/21) Pt has Celiac disease Home Medication List Reviewed: Yes HYE-Uskaty-Uizcqr Hx Patient Social History Marital Status: Employed/Student: retired Smoking Status: Current Everyday Smoker Have you traveled recently?: No Alcohol Use?: No Past Medical History Discussed below Family Medical History Significant Family History: No Pertinent Family Hx Family Medical Hx Noncontributory Review of Systems-General Review of Systems Constitutional: see HPI, malaise EENTM: see HPI, no symptoms reported Respiratory: No no symptoms reported; cough; No dyspnea on exertion, No he moptysis, No orthopnea; phlegm, short of breath; No stridor, No wheezing, No other Cardiovascular: see HPI, chest pain; No edema, No Hx of Intervention, No palpitations, No syncope, No vascular heart diseas, No other Gastrointestinal: no symptoms reported, see HPI, abdominal pain Genitourinary: no symptoms reported, see HPI Musculoskeletal: no symptoms reported Skin: no symptoms reported Psychiatric/Neurological: No Symptoms Reported Reviewed Test Results Reviewed Test Results Lab Laboratory Tests Test 12/28/21 00:07 12/28/21 02:44 12/28/21 04:10 Range/Units White Blood Count 8.7 9.7 4.3-11.0 10^3/uL Red Blood Count 4.07 L 4.04 L 4.30-5.52 10^6/uL Hemoglobin 11.4 L 11.5 L 13.3-17.7 g/dL Hematocrit 38 L 37 L 40-54 % Mean Corpuscular Volume 93 93 80-99 fL Mean Corpuscular Hemoglobin 28 29 25-34 pg Mean Corpuscular Hemoglobin Concent 30 L 31 L 32-36 g/dL Red Cell Distribution Width 15.5 H 15.5 H 10.0-14.5 % Platelet Count 220 195 130-400 10^3/uL Mean Platelet Volume 10.0 10.2 9.0-12.2 fL Immature Granulocyte % (Auto) 1 1 % Neutrophils (%) (Auto) 57 92 H 42-75 % Lymphocytes (%) (Auto) 32 4 L 12-44 % Monocytes (%) (Auto) 9 3 0-12 % Eosinophils (%) (Auto) 2 0 0-10 % Basophils (%) (Auto) 0 0 0-10 % Neutrophils # (Auto) 4.9 8.9 H 1.8-7.8 10^3/uL Lymphocytes # (Auto) 2.7 0.4 L 1.0-4.0 10^3/uL Monocytes # (Auto) 0.8 0.3 0.0-1.0 10^3/uL Eosinophils # (Auto) 0.2 0.0 0.0-0.3 10^3/uL Basophils # (Auto) 0.0 0.0 0.0-0.1 10^3/uL Immature Granulocyte # (Auto) 0.0 0.1 0.0-0.1 10^3/uL Prothrombin Time 13.8 12.2-14.7 SEC INR Comment 1.0 0.8-1.4 Activated Partial Thromboplast Time 34 24-35 SEC D-Dimer 0.69 H 0.00-0.49 UG/ML Sodium Level 140 138 135-145 MMOL/L Potassium Level 4.6 4.9 3.6-5.0 MMOL/L Chloride Level 106 105 98-107 MMOL/L Carbon Dioxide Level 21 21 21-32 MMOL/L Anion Gap 13 12 5-14 MMOL/L Blood Urea Nitrogen 29 H 28 H 7-18 MG/DL Creatinine 0.85 0.80 0.60-1.30 MG/DL Estimat Glomerular Filtration Rate 92 93 BUN/Creatinine Ratio 34 35 Glucose Level 121 H 164 H 70-105 MG/DL Calcium Level 9.0 9.0 8.5-10.1 MG/DL Corrected Calcium 9.2 9.3 8.5-10.1 MG/DL Magnesium Level 2.0 1.9 1.6-2.4 MG/DL Total Bilirubin 0.3 0.3 0.1-1.0 MG/DL Aspartate Amino Transf (AST/SGOT) 18 20 5-34 U/L Alanine Aminotransferase (ALT/SGPT) 20 23 0-55 U/L Alkaline Phosphatase 86 82 40-136 U/L Total Creatine Kinase 29 L 30-200 U/L Creatine Kinase MB 2.4 <6.6 NG/ML Myoglobin 27.8 10.0-92.0 NG/ML Troponin I < 0.028 < 0.028 < 0.028 <0.028 NG/ML B-Type Natriuretic Peptide 106.4 H <100.0 PG/ML Total Protein 6.6 6.3 L 6.4-8.2 GM/DL Albumin 3.8 3.6 3.2-4.5 GM/DL Amylase Level 74 25-125 U/L Lipase 28 8-78 U/L Neutrophils % (Manual) 90 % Lymphocytes % (Manual) 6 % Monocytes % (Manual) 4 % Microcytosis SLIGHT Elliptocytes SLIGHT Lactic Acid Level 1.14 0.50-2.00 MMOL/L Phosphorus Level 3.4 2.3-4.7 MG/DL Physical Exam Physical Exam Vital Signs Vital Signs - First Documented 12/28/21 00:02 Temp 36.8 Pulse 66 Resp 22 B/P (MAP) 200/85 (123) Pulse Ox 99 O2 Delivery Nasal Cannula O2 Flow Rate 2.00 Capillary Refill : Less Than 3 Seconds Height, Weight, BMI Height: '" Weight: lbs. oz. kg; 22.20 BMI Method: General Appearance: No Apparent Distress, WD/WN, Chronically ill, Mild Distress Eyes: Bilateral Eye Normal Inspection, Bilateral Eye PERRL, Bilateral Eye EOMI HEENT: PERRL/EOMI, TMs Normal, Normal ENT Inspection, Pharynx Normal, Moist Mucous Membranes Neck: Normal Inspection Respiratory: Decreased Breath Sounds (DECREASED AERATION IN ALL LUNG ROONEY), Other (MILDLY DYSPNEIC BUT ABLE TO TALK IN FULL SENTENCES. MILD INTERCOSTAL RETRACTIONS AND ABDOMINAL BREATHING) Cardiovascular: Regular Rate, Rhythm, No JVD, No Murmur Gastrointestinal: Soft; No Distended, No Guarding, No Hernia, No Mass, No Rebound; Tenderness (DIFFUSE UPPER ABDOMINAL TENDERNESS, MOST TENDER IN RUQ. ) Back: Normal Inspection, No CVA Tenderness, No Vertebral Tenderness Extremity: Normal Capillary Refill, No Calf Tenderness, Pedal Edema (2+ EDEMA BILATERALLY) Neurologic/Psychiatric: Alert, Oriented x3, No Motor/Sensory Deficits, rn intake II- XII Norm as Tested Skin: Diaphoresis, Pallor Lymphatic: No Adenopathy A/P-Cardiology Admission Diagnosis Chest pain Coronary artery disease Gallstones Atrial fibrillation Assessment/Plan Acute chest pain, atypical in presentation. EKG and cardiac enzymes did not show any acute abnormality, occasional PVCs noted. Gallstones noted on ultrasound. Pain could be related to the gallstone. Coronary artery disease, history of stent done about 2 years ago, no recent cardiac work-up. Continue to monitor at this point. Paroxysmal atrial fibrillation, currently in sinus rhythm, continue to monitor and restart home medication History of DVT and pulmonary embolism, maintained on oral anticoagulation. History of significant GI bleed requiring multiple transfusions, monitor H&H History of COVID-19 pneumonia with prolonged hospitalization for 2 months in September and October 2021 at [facility] DUNCAN REES MD Dec 28, 2021 08:27
[2021-12-28] MEDS: RT-ALBUTEROL/IPRATROPIUM 3 ML (DUONEB) VIAL INH SCH ×5 (08:35→21:55)
[2021-12-28] MEDS: methylPREDNISolone 125 MG (Solu-MEDROL) VIAL IV SCH ×3 (08:47→21:54)
[2021-12-28] MEDS ORDERED: ASPIRIN E.C. 81 MG (ECOTRIN) TAB PO SCH (09:00)
[2021-12-28] MEDS ORDERED: RT-ALBUTEROL SULF 2.5 MG/3 ML PRE-MIX VIAL INH SCH (09:00)
[2021-12-28] MEDS ORDERED: ENOXAPARIN 40 MG/0.4 ML (LOVENOX) SYR SC SCH (09:00)
--- NOTE | 2021-12-28 09:12 | Diagnostic Imaging Report ---
INDICATION: Right upper quadrant pain. Cholelithiasis noted on CT scan 12/28/2021. PROCEDURE: Ultrasound abdomen complete. TECHNIQUE: Multiple real-time grayscale images were obtained of the abdomen in various projections. FINDINGS: Liver parenchyma appears normal. Liver measures 16 cm. Bile ducts are not dilated. Common duct measures 6 mm. Gallbladder is filled with small stones. Gallbladder wall is thickened measuring 7 mm. There is mild pericholecystic fluid. Pancreas is obscured by bowel gas and gallstone. Spleen measures 13 x 5 x 6 cm. The aorta is also obscured. Vena cava and portal vein appear normal. Right kidney measures 10.8 x 5.3 x 5.7 cm. Left kidney measures 11 x 5.1 x 5.1 cm. There are several small cyst in the cortex of the left kidney correlating with CT scan. There is no ascites. Patient does have positive Lemus sign. IMPRESSION: Distended gallbladder filled with gallstones and sludge. Thickened gallbladder wall with pericholecystic fluid. Positive Lemus sign. These findings are all consistent with acute cholecystitis. This does correlate well with CT findings. Dictated by: Dictated on workstation # [id number]
--- NOTE | 2021-12-28 09:22 | Consultation - Surgery ---
VALAIRE DUKE 12/28/21921: History of Present Illness History of Present Illness Patient Consulted On(alber/time) 12/28/21 09:17 Date Seen by Provider: Dec 28, 2021 Time Seen by Provider: 08:40 Reason for Visit: Cholelithiasis, History of severe GI bleed History of Present Illness Patient is a 71 year old male who presented to [facility] ER yesterday with severe epigastric pain. Patient states the pain started yesterday morning. Initially the pain started in his epigastric area and then radiated to RUQ, back, and down to his umbilicus. Patient states the pain initially felt like a stabbing pain, and then into a knotting pain with pressure. Patient had associated N/V and diaphoresis. Patient tried to take tums and it didn't help, he wanted to take his nitroglycerin tablets but couldn't find them. Patient states the pain is worse while lying on his back. Yesterday at the worst patient rates the pain an 8/10, he states now it is a 5/10. Patient has a history of CAD with stenting and initial cardiac workup was started in the ER. On CT imaging gallstones were found. Patient is set to receive abdominal ultrasound this AM. Allergies and Home Medications Allergies Coded Allergies: Penicillins (Verified Allergy, Mild, 12/28/21) gluten (Unverified Allergy, Unknown, 10/26/21) Pt has Celiac disease Patient Home Medication List ALPRAZolam (ALPRAZolam) 0.25 Mg Tablet, 0.25 MG PO HS, (Reported) Entered as Reported by: TATE LINDA on 12/28/21 1035 Last Action: Reviewed Acetaminophen (Tylenol Extra Strength) 500 Mg Tablet, 1,000 MG PO QID PRN for PAIN-MILD (1-4), (Reported) Entered as Reported by: TATE LINDA on 12/28/21 1025 Last Action: Reviewed Albuterol Sulfate (Proair Hfa) 1 Puff Puff, 2 PUFF IH Q4H PRN for SHORTNESS OF BREATH, (Reported) Entered as Reported by: IVET MARTÍNEZ on 10/23/211957 Last Action: Reviewed Albuterol/Ipratropium (Combivent Respimat Inhal [place]) 4 Gm Aero, 1 PUFF IH QID, (Reported) Entered as Reported by: IVET MARTÍNEZ on 10/23/211957 Last Action: Reviewed Alprazolam (Xanax) 0.25 Mg Tablet, 0.25 MG PO 0800,1400 PRN for ANXIETY, (Reported) Entered as Reported by: IVET MARTÍNEZ on 10/23/211957 Last Action: Reviewed Amiodarone HCl (Amiodarone HCl) 200 Mg Tablet, 400 MG PO DAILY, (Reported) Entered as Reported by: IVET MARTÍNEZ on 10/23/211957 Last Action: Reviewed Apixaban (Eliquis) 5 Mg Tablet, 5 MG PO BID, (Reported) Entered as Reported by: TATE LINDA on 12/28/21 102 Last Action: Reviewed Atorvastatin Calcium (Atorvastatin Calcium) 20 Mg Tablet, 10 MG PO HS, (Reported) Entered as Reported by: TATE LINDA on 10/25/21 123 Last Action: Reviewed Cyanocobalamin (Vitamin B-12) (Vitamin B-12) 500 Mcg Tablet, 1,000 MCG PO DAILY, (Reported) Entered as Reported by: TATE LINDA on 12/28/21 102 Last Action: Reviewed Diltiazem HCl (Diltiazem HCl) 90 Mg Tablet, 180 MG PO HS, (Reported) Entered as Reported by: TATE LINDA on 10/25/21 123 Last Action: Reviewed Diphenhydramine HCl (Zzzquil) 50 Mg/30 Ml Liquid, 50 MG PO HS, (Reported) Entered as Reported by: TATE LINDA on 12/28/21 1039 Last Action: Reviewed Docusate Sodium (Docusate Sodium) 100 Mg Capsule, 200 MG PO DAILY, (Reported) Entered as Reported by: IVET MARTÍNEZ on 10/23/211957 Last Action: Reviewed Furosemide (Furosemide) 40 Mg Tablet, 40 MG PO DAILY PRN for 2LB WEIGHT GAIN (BASE LB 165), (Reported) Entered as Reported by: RODRIGUEZ MARIO on 12/07/211449 Last Action: Reviewed Guaifenesin (Guaifenesin) 200 Mg Tablet, 200 MG PO BID, (Reported) Entered as Reported by: RODRIGUEZ MARIO on 12/07/211449 Last Action: Reviewed Levothyroxine Sodium (Levothyroxine Sodium) 200 Mcg Tablet, 200 MCG PO DAILY, (Reported) Entered as Reported by: TATE LINDA on 10/25/21 1234 Last Action: Reviewed Melatonin (Melatonin) 5 Mg Tablet, 10 MG PO HS, (Reported) Entered as Reported by: TATE LINDA on 12/28/21 102 Last Action: Reviewed Mirtazapine (Mirtazapine) 45 Mg Tablet, 22.5 MG PO HS, (Reported) Entered as Reported by: TATE LINDA on 10/25/21 123 Last Action: Reviewed Omeprazole (Omeprazole) 20 Mg Tab.rap.dr, 40 MG PO BID, (Reported) Entered as Reported by: TATE LINDA on 10/25/211233 Last Action: Reviewed Polyethylene Glycol 3350 (Miralax) 17 Gm Powd.pack, 17 GM PO DAILY PRN for CONSTIPATION-2ND LINE, (Reported) Entered as Reported by: TATE LINDA on 12/28/21 1025 Last Action: Reviewed Tamsulosin HCl (Flomax) 0.4 Mg Cap, 0.4 MG PO 1800, (Reported) Entered as Reported by: IVET MARTÍNEZ on 10/23/211957 Last Action: Reviewed Vitamin E Acetate (Vitamin E) 400 Unit Capsule, 400 UNIT PO DAILY, (Reported) Entered as Reported by: IVET MARTÍNEZ on 10/23/211957 Last Action: Reviewed Discontinued Medications Albuterol Sulfate (Albuterol Sulfate) 2.5 Mg/3 Ml Vial.neb, 2.5 MG INH Q4H PRN for WHEEZING Discontinued Reason: No Longer Taking Prescribed by: RADHA AGUDELO on 12/07/211531 Last Action: Discontinued Apixaban (Eliquis) 5 Mg Tablet, 5 MG PO BID Discontinued Reason: No Longer Taking Prescribed by: GHASSAN NAVAS on 10/28/21 1112 Last Action: Discontinued Cefuroxime Axetil (Cefuroxime) 250 Mg Tablet, 250 MG PO BID Discontinued Reason: No Longer Taking Prescribed by: RADHA AGUDELO on 12/07/211524 Last Action: Discontinued Cyanocobalamin (Vitamin B-12) (B-12) 1,000 Mcg Tablet, 1,000 MCG PO DAILY, (Reported) Discontinued Reason: Prescription changed Entered as Reported by: IVET MARTÍNEZ on 10/23/211957 Prednisone (Prednisone) 10 Mg Tab.ds.pk, 10 MG PO DAILY Discontinued Reason: No Longer Taking Prescribed by: RADHA AGUDELO on 12/07/21 1525 Last Action: Discontinued Past Fpkycgv-Zyxhfn-Iyamjm Hx Patient Social History Smoking Status: Current Everyday Smoker Cigarettes Per Day: 15 Type Used: Cigarettes Recent Hopitalizations: Yes Alcohol Use?: No Have you traveled recently?: No Surgeries History of Surgeries: Yes Surgeries: Abdominal (ventral hernia repair), Appendectomy, Coronary Stent Cardiovascular Cardiac Disorders: Atrial Fibrillation, Coronary Artery Disease, High Cholesterol, Hypertension Gastrointestinal Gastrointestinal Disorders: Abdominal Hernia (umbilical), Gastroesophageal Reflux, Gastrointestinal Bleed Family Medical History Significant Family History: COPD, Diabetes Review of Systems-General Constitutional: No chills, No diaphoresis Respiratory: No cough, No short of breath Cardiovascular: chest pain (knot in epigastrum ) Gastrointestinal: RUQ, RLQ, LLQ, abdominal pain (RUQ), heartburn, nausea, vomiting, other (Sttaes he was told at one time he has a Left inguinal hernia) Genitourinary: No dysuria, No frequency; other (states sometimes his stream is decreased) Musculoskeletal: other (leg pain, has to use a walker after bilateral leg injury) Physical Exam-General Problems Physical Exam Vital Signs Vital Signs - First Documented 12/28/21 00:02 Temp 36.8 Pulse 66 Resp 22 B/P (MAP) 200/85 (123) Pulse Ox 99 O2 Delivery Nasal Cannula O2 Flow Rate 2.00 Capillary Refill : Less Than 3 Seconds General Appearance: WD/WN, no apparent distress Neck: supple Respiratory: no respiratory distress, no accessory muscle use Cardiovascular: normal peripheral pulses, regular rate, rhythm, no murmur Gastrointestinal: normal bowel sounds, soft, guarding (RUQ to palpation), tenderness (RUQ) Rectal: deferred Extremities: no calf tenderness, pedal edema (2+ pitting bilaterally), other (digital clubbing) Neurologic/Psychiatric: alert, oriented x 3 Skin: normal color, warm/dry, other (scar just below umbilicus from hernia repair; scar RLQ from open appendectomy) Data Review Labs Laboratory Tests 12/28/21 00:07: White Blood Count 8.7, Red Blood Count 4.07L, Hemoglobin 11.4L, Hematocrit 38L, Mean Corpuscular Volume 93, Mean Corpuscular Hemoglobin 28, Mean Corpuscular Hemoglobin Concent 30L, Red Cell Distribution Width 15.5H, Platelet Count 220, Mean Platelet Volume 10.0, Immature Granulocyte % (Auto) 1, Neutrophils (%) (Auto) 57, Lymphocytes (%) (Auto) 32, Monocytes (%) (Auto) 9, Eosinophils (%) (Auto) 2, Basophils (%) (Auto) 0, Neutrophils # (Auto) 4.9, Lymphocytes # (Auto) 2.7, Monocytes # (Auto) 0.8, Eosinophils # (Auto) 0.2, Basophils # (Auto) 0.0, Immature Granulocyte # (Auto) 0.0, Prothrombin Time 13.8, INR Comment 1.0, Activated Partial Thromboplast Time 34, D-Dimer 0.69H, Sodium Level 140, Potassium Level 4.6, Chloride Level 106, Carbon Dioxide Level 21, Anion Gap 13, Blood Urea Nitrogen 29H, Creatinine 0.85, Estimat Glomerular Filtration Rate 92, BUN/Creatinine Ratio 34, Glucose Level 121H, Calcium Level 9.0, Corrected Calcium 9.2, Magnesium Level 2.0, Total Bilirubin 0.3, Aspartate Amino Transf (AST/SGOT) 18, Alanine Aminotransferase (ALT/SGPT) 20, Alkaline Phosphatase 86, Total Creatine Kinase 29L, Creatine Kinase MB 2.4, Myoglobin 27.8, Troponin I < 0.028, B-Type Natriuretic Peptide 106.4H, Total Protein 6.6, Albumin 3.8, Amylase Level 74, Lipase 28 12/28/21 02:44: Troponin I < 0.028 12/28/21 04:10: White Blood Count 9.7, Red Blood Count 4.04L, Hemoglobin 11.5L, Hematocrit 37L, Mean Corpuscular Volume 93, Mean Corpuscular Hemoglobin 29, Mean Corpuscular Hemoglobin Concent 31L, Red Cell Distribution Width 15.5H, Platelet Count 195, Mean Platelet Volume 10.2, Immature Granulocyte % (Auto) 1, Neutrophils (%) (Auto) 92H, Lymphocytes (%) (Auto) 4L, Monocytes (%) (Auto) 3, Eosinophils (%) (Auto) 0, Basophils (%) (Auto) 0, Neutrophils # (Auto) 8.9H, Lymphocytes # (Auto) 0.4L, Monocytes # (Auto) 0.3, Eosinophils # (Auto) 0.0, Basophils # (Auto) 0.0, Immature Granulocyte # (Auto) 0.1, Sodium Level 138, Potassium Level 4.9, Chloride Level 105, Carbon Dioxide Level 21, Anion Gap 12, Blood Urea Nitrogen 28H, Creatinine 0.80, Estimat Glomerular Filtration Rate 93, BUN/Creatinine Ratio 35, Glucose Level 164H, Calcium Level 9.0, Corrected Calcium 9.3, Magnesium Level 1.9, Total Bilirubin 0.3, Aspartate Amino Transf (AST/SGOT) 20, Alanine Aminotransferase (ALT/SGPT) 23, Alkaline Phosphatase 82, Troponin I < 0.028, Total Protein 6.3L, Albumin 3.6, Neutrophils % (Manual) 90, Lymphocytes % (Manual) 6, Monocytes % (Manual) 4, Microcytosis SLIGHT, Elliptocytes SLIGHT, Lactic Acid Level 1.14, Phosphorus Level 3.4 Assessment/Plan Assessment/Plan Admission Diagonsis Chest/Epigastric pain Assessment/Plan Assessment Epigastric/RUQ abdominal pain Cholelithiasis History of severe GI bleed, managed by Dr. George at [facility] Hx of CAD with stent placement, on abixaban at home Celiac disease HTN HLD Plan IVF Zofran for Nausea control Pain management Abdominal ultrasound of gallbladder Suspect acute cholecystitis, discuss different treatment options and risks and benefits of each with patient. SHANNON LUCAS DO 12/28/21 1157: History of Present Illness History of Present Illness Time Seen by Provider: 11:38 History of Present Illness Surgery asked to consult regarding RUQ pain. HPI: pt had severe epigastric pain yesterday and was worried it could be his heart and came to the ER. Cardiac work-up was negative. Sounding more like pain secondary to Cholelithiasis. Pt states he has had pain like this before, but never this bad and always resolved with Tums. Has not noticed in the past whether this pain was associated with fried or fatty foods. Pain is still moderate-severe today. Allergies and Home Medications Allergies Coded Allergies: Penicillins (Verified Allergy, Mild, 12/28/21) gluten (Unverified Allergy, Unknown, 10/26/21) Pt has Celiac disease Patient Home Medication List Home Medication List Reviewed: Yes ALPRAZolam (ALPRAZolam) 0.25 Mg Tablet, 0.25 MG PO HS, (Reported) Entered as Reported by: TATE ALEXEI on 12/28/21 1035 Last Action: Reviewed Acetaminophen (Tylenol Extra Strength) 500 Mg Tablet, 1,000 MG PO QID PRN for PAIN-MILD (1-4), (Reported) Entered as Reported by: TATE LINDA on 12/28/21 1025 Last Action: Reviewed Albuterol Sulfate (Proair Hfa) 1 Puff Puff, 2 PUFF IH Q4H PRN for SHORTNESS OF BREATH, (Reported) Entered as Reported by: IVET MARTÍNEZ on 10/23/211957 Last Action: Reviewed Albuterol/Ipratropium (Combivent Respimat Inhal [place]) 4 Gm Aero, 1 PUFF IH QID, (Reported) Entered as Reported by: IVET MARTÍNEZ on 10/23/211957 Last Action: Reviewed Alprazolam (Xanax) 0.25 Mg Tablet, 0.25 MG PO 0800,1400 PRN for ANXIETY, (Reported) Entered as Reported by: IVET MARTÍNEZ on 10/23/211957 Last Action: Reviewed Amiodarone HCl (Amiodarone HCl) 200 Mg Tablet, 400 MG PO DAILY, (Reported) Entered as Reported by: IVET MARTÍNEZ on 10/23/211957 Last Action: Reviewed Apixaban (Eliquis) 5 Mg Tablet, 5 MG PO BID, (Reported) Entered as Reported by: TATE LINDA on 12/28/21 102 Last Action: Reviewed Atorvastatin Calcium (Atorvastatin Calcium) 20 Mg Tablet, 10 MG PO HS, (Reported) Entered as Reported by: TATE LINDA on 10/25/21 1234 Last Action: Reviewed Cyanocobalamin (Vitamin B-12) (Vitamin B-12) 500 Mcg Tablet, 1,000 MCG PO DAILY, (Reported) Entered as Reported by: TATE LINDA on 12/28/21 102 Last Action: Reviewed Diltiazem HCl (Diltiazem HCl) 90 Mg Tablet, 180 MG PO HS, (Reported) Entered as Reported by: TATE LINDA on 10/25/21 1234 Last Action: Reviewed Diphenhydramine HCl (Zzzquil) 50 Mg/30 Ml Liquid, 50 MG PO HS, (Reported) Entered as Reported by: TATE LINDA on 12/28/21 1039 Last Action: Reviewed Docusate Sodium (Docusate Sodium) 100 Mg Capsule, 200 MG PO DAILY, (Reported) Entered as Reported by: IVET MARTÍNEZ on 10/23/211957 Last Action: Reviewed Furosemide (Furosemide) 40 Mg Tablet, 40 MG PO DAILY PRN for 2LB WEIGHT GAIN (BASE LB 165), (Reported) Entered as Reported by: RODRIGUEZ MARIO on 12/07/21 145 Last Action: Reviewed Guaifenesin (Guaifenesin) 200 Mg Tablet, 200 MG PO BID, (Reported) Entered as Reported by: RODRIGUEZ MARIO on 12/07/211449 Last Action: Reviewed Levothyroxine Sodium (Levothyroxine Sodium) 200 Mcg Tablet, 200 MCG PO DAILY, (Reported) Entered as Reported by: TATE LINDA on 10/25/21 123 Last Action: Reviewed Melatonin (Melatonin) 5 Mg Tablet, 10 MG PO HS, (Reported) Entered as Reported by: TATE LINDA on 12/28/21 102 Last Action: Reviewed Mirtazapine (Mirtazapine) 45 Mg Tablet, 22.5 MG PO HS, (Reported) Entered as Reported by: TATE LINDA on 10/25/211233 Last Action: Reviewed Omeprazole (Omeprazole) 20 Mg Tab.rap.dr, 40 MG PO BID, (Reported) Entered as Reported by: TATE LINDA on 10/25/211233 Last Action: Reviewed Polyethylene Glycol 3350 (Miralax) 17 Gm Powd.pack, 17 GM PO DAILY PRN for CONSTIPATION-2ND LINE, (Reported) Entered as Reported by: TATE LINDA on 12/28/21 102 Last Action: Reviewed Tamsulosin HCl (Flomax) 0.4 Mg Cap, 0.4 MG PO 1800, (Reported) Entered as Reported by: IVET MARTÍNEZ on 10/23/211957 Last Action: Reviewed Vitamin E Acetate (Vitamin E) 400 Unit Capsule, 400 UNIT PO DAILY, (Reported) Entered as Reported by: IVET MARTÍNEZ on 10/23/211957 Last Action: Reviewed Discontinued Medications Albuterol Sulfate (Albuterol Sulfate) 2.5 Mg/3 Ml Vial.neb, 2.5 MG INH Q4H PRN for WHEEZING Discontinued Reason: No Longer Taking Prescribed by: RADHA AGUDELO on 12/07/21 153 Last Action: Discontinued Apixaban (Eliquis) 5 Mg Tablet, 5 MG PO BID Discontinued Reason: No Longer Taking Prescribed by: GHASSAN NAVAS on 10/28/21 1112 Last Action: Discontinued Cefuroxime Axetil (Cefuroxime) 250 Mg Tablet, 250 MG PO BID Discontinued Reason: No Longer Taking Prescribed by: RADHA AGUDELO on 12/07/21 1525 Last Action: Discontinued Cyanocobalamin (Vitamin B-12) (B-12) 1,000 Mcg Tablet, 1,000 MCG PO DAILY, (Reported) Discontinued Reason: Prescription changed Entered as Reported by: IVET MARTÍNEZ on 10/23/211957 Prednisone (Prednisone) 10 Mg Tab.ds.pk, 10 MG PO DAILY Discontinued Reason: No Longer Taking Prescribed by: RAHDA AGUDELO on 12/07/211524 Last Action: Discontinued Past Ohytcwn-Mftjgs-Ytajas Hx Patient Social History Smoking Status: Current Everyday Smoker Type Used: Cigarettes Recent Hopitalizations: Yes Alcohol Use?: No Surgeries History of Surgeries: Yes Surgeries: Abdominal (ventral hernia repair), Appendectomy, Coronary Stent Respiratory History of Respiratory Disorde: No Cardiovascular History of Cardiac Disorders: Yes Cardiac Disorders: Atrial Fibrillation, Coronary Artery Disease, High Cholesterol, Hypertension Neurological History of Neurological Disord: No Genitourinary History of Genitourinary Disor: No Gastrointestinal History of Gastrointestinal Di: Yes Gastrointestinal Disorders: Abdominal Hernia (umbilical), Gastroesophageal Reflux, Gastrointestinal Bleed Musculoskeletal History of Musculoskeletal Dis: Yes Musculoskeletal Disorders: Arthritis, Chronic Back Pain Endocrine History of Endocrine Disorders: No HEENT History of HEENT Disorders: No Loss of Vision: Denies Hearing Impairment: Denies Cancer History of Cancer: No Psychosocial History of Psychiatric Problem: No Family Medical History Significant Family History: COPD, Diabetes Review of Systems-General Constitutional: No chills, No diaphoresis Respiratory: No cough, No short of breath Cardiovascular: chest pain (knot in epigastrum ), Hx of Intervention Gastrointestinal: RUQ, RLQ, LLQ, abdominal pain (RUQ), heartburn, nausea, vomiting, other (Sttaes he was told at one time he has a Left inguinal hernia) Genitourinary: No dysuria, No frequency; other (states sometimes his stream is decreased) Musculoskeletal: joint pain, muscle stiffness, other (leg pain, has to use a walker after bilateral leg injury) Skin: No change in color, No change in hair/nails; other (bruising on arms ) Psychiatric/Neurological: Denies Anxiety, Denies Depressed Physical Exam-General Problems Physical Exam General Appearance: WD/WN, mild distress (secondary to pain) Eyes: Bilateral Eye PERRL, Bilateral Eye EOMI HEENT: pharynx normal; No scleral icterus (R), No scleral icterus (L) Neck: non-tender, supple Respiratory: lungs clear, normal breath sounds (but decreased effort), no respiratory distress, no accessory muscle use Cardiovascular: normal peripheral pulses, regular rate, rhythm, no murmur Gastrointestinal: normal bowel sounds, soft, guarding (RUQ to palpation), tenderness (RUQ) Rectal: deferred Extremities: no calf tenderness, pedal edema (2+ pitting bilaterally), other (digital clubbing) Neurologic/Psychiatric: alert, oriented x 3 Skin: normal color, warm/dry, other (scar just below umbilicus from hernia repair; scar RLQ from open appendectomy) Lymphatic: no adenopathy (neck, axilla or inguinal) Data Review Radiology Date of Exam:12/28/21 US ABDOMEN COMPLETE [id number] INDICATION: Right upper quadrant pain. Cholelithiasis noted on CT scan 12/28/2021. PROCEDURE: Ultrasound abdomen complete. TECHNIQUE: Multiple real-time grayscale images were obtained of the abdomen in various projections. FINDINGS: Liver parenchyma appears normal. Liver measures 16 cm. Bile ducts are not dilated. Common duct measures 6 mm. Gallbladder is filled with small stones. Gallbladder wall is thickened measuring 7 mm. There is mild pericholecystic fluid. Pancreas is obscured by bowel gas and gallstone. Spleen measures 13 x 5 x 6 cm. The aorta is also obscured. Vena cava and portal vein appear normal. Right kidney measures 10.8 x 5.3 x 5.7 cm. Left kidney measures 11 x 5.1 x 5.1 cm. There are several small cyst in the cortex of the left kidney correlating with CT scan. There is no ascites. Patient does have positive Lemus sign. IMPRESSION: Distended gallbladder filled with gallstones and sludge. Thickened gallbladder wall with pericholecystic fluid. Positive Lemus sign. These findings are all consistent with acute cholecystitis. This does correlate well with CT findings. Dictated on workstation # [id number] Dict: 12/28/21 0859 Trans: 12/28/21 0913 [facility] [id number] Interpreted by: SHANNON LUJAN MD Assessment/Plan Assessment/Plan Assessment/Plan Acute Cholecystitis with Cholelithiasis - proven on US Abnormal Coagulation profile - Eliquis secondary to CAD stents History of severe GI bleed, managed by Dr. George at [facility] Hx of CAD with stent placement, on abixaban at home (stent in 2019) Celiac disease HTN HLD Plan IVF. NPO, Zofran for Nausea control, Pain management. I talked to pt and went over his options; I think he will benefit from Cholecystectomy. He is on a bl ood thinner and we should wait at least until tomorrow to give the medicine a chance to fade off. Would plan for surgery tomorrow and we went over risks and complications not limited to pain, bleeding, infection, scar, damage to bowel and bile duct with need for further procedure. He is in a significant amount of pain and this is at least an urgent procedure, with acute findings on US. In fact, pt wants gallbladder out as soon as possible. I did go over risks of excessive bleeding because of the blood thinner, but we may watch an extra night in the hospital to monitor Hg. All questions answered to his satisfaction. Will get consent and plan for surgery tomorrow. Supervisory-Addendum Brief Verification & Attestation Participated in pt care: history, MDM, physical Personally performed: exam, history, MDM, supervision of care Care discussed with: Medical Student Procedures: n/a Verification and Attestation of Medical Student E/M Service A medical student performed and documented this service. I then reviewed and verified all information documented by the medical student and made modifications to such information, when appropriate. I personally performed a physical exam, medical decision making and then discussed any differences between the notes and made revisions as necessary to create one note. Shannon Lucas , 12/28/21 , 12:10 VALARIE DUKE Dec 28, 2021 09:22 SHANNON LUCAS DO Dec 28, 2021 11:57
[2021-12-28 09:36] LABS: BILIRUBIN,URINE NEGATIVE (NEGATIVE); CLARITY,URINE CLEAR; COLOR,URINE YELLOW; GLUCOSE, URINE (UA) TRACE (NEGATIVE); KETONES,URINE NEGATIVE (NEGATIVE); LEUKOCYTE ESTERASE ,URINE NEGATIVE (NEGATIVE); NITRITE,URINE NEGATIVE (NEGATIVE); PROTEIN,URINE 3+ (NEGATIVE)
[2021-12-28 09:46] LABS: BACTERIA,URINE TRACE /HPF; HYALINE CASTS, URINE 0-2 /LPF; SQUAMOUS EPITHELIAL CELL,UR 0-2 /HPF; WBC,URINE RARE /HPF
[2021-12-28] MEDS ORDERED: APIX5TAB PO (10:25)
[2021-12-28] MEDS ORDERED: POLY17PO6 PO (10:25)
[2021-12-28] MEDS ORDERED: ACET-2267 PO (10:25)
[2021-12-28] MEDS ORDERED: MELA5TAB14 PO (10:25)
[2021-12-28] MEDS ORDERED: CYAN500T8 PO (10:25)
[2021-12-28] MEDS: fentaNYL INJ 100 MCG/2 ML AMP IV PRN ×3 (10:28→20:06)
[2021-12-28] MEDS ORDERED: ALPR0.254 PO (10:35)
[2021-12-28] MEDS ORDERED: DIPH50LI PO (10:39)
[2021-12-28 12:00] VITALS: BP 156/73
[2021-12-28] MEDS: hydrALAZINE (APESOLINE) 20 MG/ML VIAL IV SCH ×3 (12:22→21:55)
[2021-12-28 16:00] VITALS: BP 156/64
--- NOTE | 2021-12-28 18:36 | History & Physical-Hospitalist ---
History of Present Illness HPI/Chief Complaint Anthony Trotter is a 71 year old male with PMH HTN, AFib, DVT/PE, anxiety, hypothyroidism, BPH, GERD, who presented with chest pain. He reports pain in his lower chest and radiating downward. It is improved now with pain medicine. He reports nausea and vomiting. He denies fevers and chills. He is not short of breath. He denies cough. He has never had this pain before. He didn't notice any association with food. He says it started yesterday morning and progressively worsened. Source: patient, family Exam Limitations: no limitations Date Seen 12/28/21 Time Seen by a Provider: 09:15 Attending Physician Ana Quiroz MD PCP No,Local Physician Referring Physician Date of Admission Dec 28, 2021 at 02:18 Home Medications & Allergies Home Medications Reviewed patient Home Medication Reconciliation performed by pharmacy medication reconciliations door technician and/or nursing. Patients Allergies have been reviewed. Allergies Allergies Coded Allergies Penicillins (Verified Allergy, Mild, 12/28/21) gluten (Unverified Allergy, Unknown, 10/26/21) Pt has Celiac disease Past Oucbyzv-Mrqvnn-Fshirb Hx Patient Social History Marrital Status: Employed/Student: retired Tobacco Use?: Yes Tobacco type used: Cigarettes Smoking Status: Current Everyday Smoker Use of E-Cig and/or Vaping dev: No Substance use?: No Alcohol Use?: No Immunizations Up To Date First/Initial COVID19 Vaccinat: 2020 Second COVID19 Vaccination Femi: 2020 Tetanus Booster (TDap): Unknown Hepatitis A: No Hepatitis B: No Current Status Primary Language: Chinese Preferred Spoken Language: Chinese Past Medical History Surgeries: Abdominal (ventral hernia repair), Appendectomy, Coronary Stent Atrial Fibrillation, Coronary Artery Disease, High Cholesterol, Hypertension Abdominal Hernia (umbilical), Gastroesophageal Reflux, Gastrointestinal Bleed Arthritis, Chronic Back Pain Loss of Vision: Denies Hearing Impairment: Denies HTN, COPD Family Medical History COPD, Diabetes Review of Systems Constitutional: no symptoms reported EENTM: no symptoms reported Respiratory: short of breath Cardiovascular: chest pain Gastrointestinal: RUQ, abdominal pain (RUQ), nausea, vomiting Genitourinary: hesitancy Musculoskeletal: no symptoms reported Skin: no symptoms reported Psychiatric/Neurological: No Symptoms Reported Physical Exam Physical Exam Vital Signs Vital Signs - First Documented 12/28/21 00:02 Temp 36.8 Pulse 66 Resp 22 B/P (MAP) 200/85 (123) Pulse Ox 99 O2 Delivery Nasal Cannula O2 Flow Rate 2.00 Capillary Refill : Less Than 3 Seconds Height, Weight, BMI Height: '" Weight: lbs. oz. kg; 22.20 BMI Method: General Appearance: No Apparent Distress, Chronically ill HEENT: PERRL/EOMI, Pharynx Normal Neck: Normal Inspection, Supple Respiratory: Lungs Clear, Normal Breath Sounds, No Respiratory Distress Cardiovascular: Regular Rate, Rhythm, No Murmur, Normal Peripheral Pulses Gastrointestinal: Normal Bowel Sounds, Soft, Tenderness Extremity: Normal Inspection, Pedal Edema Neurologic/Psychiatric: Alert, Oriented x3, No Motor/Sensory Deficits, Depressed Affect Skin: Normal Color, Warm/Dry Results Results/Procedures Labs Laboratory Tests 12/28/21 00:07 12/28/21 04:10 Patient resulted labs reviewed. Imaging: Reviewed Imaging Report Assessment/Plan Admission Diagnosis Acute cholecystitis Admission Status: Inpatient Order (span 2 midnights) Reason for Inpatient Admission: Acute cholecystitis requirnig surgical intervention Assessment and Plan Acute cholecystitis CT abdomen with gallstones US consistent with acute cholecystitis Surgery consulted NPO Planning for surgery tomorrow Hold blood thinners HTN COPD AFib DVT/PE Anxiety Hypothyroidism BPH GERD Holding blood thinners NPO Continue home meds after surgery Diagnosis/Problems Diagnosis/Problems (1) Acute calculous cholecystitis Status: Acute ANA QUIROZ MD Dec 28, 2021 18:36
[2021-12-28 19:44] VITALS: BP 165/67
[2021-12-28] MEDS ORDERED: ALPRAZolam 0.25 MG (XANAX) TAB PO PRN (20:00)
[2021-12-28] MEDS: AZITHROMYCIN INJECTION 250 MG in NS (IVPB) 250 ML IV SCH (21:54)
[2021-12-28] MEDS: ALPRAZolam 0.25 MG (XANAX) TAB PO SCH (21:55)
[2021-12-29] VITALS (13 sets, daily range): BP systolic 129–162; BP diastolic 58–82
[2021-12-29] MEDS: NITROGLYCERIN 2% OINT 1 GM UNIT DOSE PACKET TOP SCH ×5 (01:13→23:44)
[2021-12-29] MEDS: hydrALAZINE (APESOLINE) 20 MG/ML VIAL IV SCH ×7 (01:14→23:43)
[2021-12-29] MEDS: RT-ALBUTEROL/IPRATROPIUM 3 ML (DUONEB) VIAL INH SCH ×6 (02:23→22:50)
[2021-12-29] MEDS: LEVOTHYROXINE 100 MCG (LEVOTHROID) TAB PO SCH (05:06)
[2021-12-29 05:57] LABS: BASOPHILS % (AUTO) 0 % (0-10); EOSINOPHILS % (AUTO) 0 % (0-10); HEMATOCRIT 34 % (40-54); HEMOGLOBIN 10.9 g/dL (13.3-17.7); LYMPHOCYTES # (AUTO) 0.4 10^3/uL (1.0-4.0); LYMPHOCYTES % (AUTO) 4 % (12-44); MEAN CORPUSCULAR HEMOGLOBIN 29 pg (25-34); MEAN CORPUSCULAR HGB CONC 32 g/dL (32-36); MEAN CORPUSCULAR VOLUME 90 fL (80-99); MEAN PLATELET VOLUME 10.8 fL (9.0-12.2); MONOCYTES # (AUTO) 0.4 10^3/uL (0.0-1.0); MONOCYTES % (AUTO) 4 % (0-12); NEUTROPHILS % (AUTO) 92 % (42-75); PLATELET COUNT 194 10^3/uL (130-400)
[2021-12-29 06:06] LABS: ALBUMIN 3.4 GM/DL (3.2-4.5); POTASSIUM 5.2 MMOL/L (3.6-5.0)
[2021-12-29 06:07] LABS: CALCIUM 9.2 MG/DL (8.5-10.1)
[2021-12-29 06:09] LABS: TOTAL PROTEIN 6.1 GM/DL (6.4-8.2)
[2021-12-29 06:10] LABS: BILIRUBIN,TOTAL 0.3 MG/DL (0.1-1.0)
[2021-12-29 06:12] LABS: CREATININE SERUM 0.75 MG/DL (0.60-1.30); PHOSPHORUS 3.3 MG/DL (2.3-4.7)
[2021-12-29 06:17] LABS: MAGNESIUM 1.9 MG/DL (1.6-2.4)
--- NOTE | 2021-12-29 07:51 | Progress Note - Surgery ---
VALARIE DUKE 12/29/21 0751: Subjective Date Seen by a Provider: Dec 29, 2021 Time Seen by a Provider: 07:30 Subjective/Events-last exam Patient resting when I entered the room. States he has been NPO. States his pain has been a constant 10 and that he is ready to move forward with the surgery. Review of Systems HEENT: No Head Aches, No Visual Changes Pulmonary: No Dyspnea, No Cough Cardiovascular: No: Chest Pain, Palpitations Gastrointestinal: Abdominal Pain; No: Nausea, Vomiting Focused Exam Lactate Level 12/28/21 04:10: Lactic Acid Level 1.14 Objective Exam Vital Signs Date Time Temp Pulse Resp B/P (MAP) Pulse Ox O2 Delivery O2 Flow Rate FiO2 12/29/21 07:38 37.2 87 20 149/73 (98) 95 Nasal Cannula 2.50 12/29/21 06:52 95 Nasal Cannula 2.50 12/29/21 04:16 37.5 86 18 155/75 (101) 95 Nasal Cannula 2.00 12/29/21 02:23 95 Nasal Cannula 2.50 12/29/21 00:20 37.5 84 18 144/70 (94) 94 Nasal Cannula 2.00 12/28/21 21:45 94 Nasal Cannula 2.50 12/28/21 20:15 Nasal Cannula 2.50 12/28/21 19:44 36.2 75 18 165/67 (99) 94 Nasal Cannula 2.00 12/28/21 18:43 95 Nasal Cannula 2.50 12/28/21 16:00 36.4 68 18 156/64 (94) 92 Nasal Cannula 2.00 12/28/21 14:24 94 Nasal Cannula 2.50 12/28/21 12:00 37.3 72 20 156/73 (100) 95 Nasal Cannula 2.00 12/28/21 11:38 Nasal Cannula 2.50 12/28/21 11:33 95 Nasal Cannula 2.50 12/28/21 08:35 94 Nasal Cannula 2.50 12/28/21 08:00 37.0 12/28/21 08:00 96 11 134/87 97 Nasal Cannula 2.50 12/28/21 08:00 Nasal Cannula 2.50 I & O 12/29/21 07:00 Intake Total 0 ml Output Total 1525 ml Balance -1525 ml Capillary Refill : Less Than 3 Seconds General Appearance: No Apparent Distress, Anxious Neck: Supple Respiratory: Lungs Clear (Anterior listening posts only), Normal Breath Sounds, No Respiratory Distress Cardiovascular: Regular Rate, Rhythm, No Murmur, Normal Peripheral Pulses Gastrointestinal: normal bowel sounds, soft, guarding (RUQ to palpation), tenderness (RUQ) Extremity: Normal Inspection, Pedal Edema (+2 bilat) Neurologic/Psychiatric: Alert, Oriented x3, No Motor/Sensory Deficits Skin: Normal Color, Warm/Dry Lymphatic: No Adenopathy Results Lab Laboratory Tests 12/28/21 09:29: Urine Color YELLOW, Urine Clarity CLEAR, Urine pH 5.0, Urine Specific [place] 1.025H, Urine Protein 3+H, Urine Glucose (UA) TRACEH, Urine Ketones NEGATIVE, Urine Nitrite NEGATIVE, Urine Bilirubin NEGATIVE, Urine Urobilinogen 0.2, Urine Leukocyte Esterase NEGATIVE, Urine RBC (Auto) 3+H, Urine RBC 2-5H, Urine WBC RARE, Urine Squamous Epithelial Cells 0-2, Urine Crystals NONE, Urine Bacteria TRACE, Urine Casts PRESENT, Urine Hyaline Casts 0-2H, Urine Mucus NEGATIVE, Urine Culture Indicated NO 12/29/21 05:42: White Blood Count 12.0H, Red Blood Count 3.83L, Hemoglobin 10.9L, Hematocrit 34L , Mean Corpuscular Volume 90, Mean Corpuscular Hemoglobin 29, Mean Corpuscular Hemoglobin Concent 32, Red Cell Distribution Width 15.6H, Platelet Count 194, Mean Platelet Volume 10.8, Immature Granulocyte % (Auto) 1, Neutrophils (%) (Au to) 92H, Lymphocytes (%) (Auto) 4L, Monocytes (%) (Auto) 4, Eosinophils (%) (Auto) 0, Basophils (%) (Auto) 0, Neutrophils # (Auto) 11.0H, Lymphocytes # (Auto) 0.4L, Monocytes # (Auto) 0.4, Eosinophils # (Auto) 0.0, Basophils # (Auto) 0.0, Immature Granulocyte # (Auto) 0.1, Sodium Level 137, Potassium Level 5.2H, Chloride Level 107, Carbon Dioxide Level 19L, Anion Gap 11, Blood Urea N itrogen 31H, Creatinine 0.75, Estimat Glomerular Filtration Rate 95, BUN/Creatinine Ratio 41, Glucose Level 133H, Calcium Level 9.2, Corrected Calcium 9.7, Phosphorus Level 3.3, Magnesium Level 1.9, Total Bilirubin 0.3, Aspartate Amino Transf (AST/SGOT) 17, Alanine Aminotransferase (ALT/SGPT) 23, Alkaline Phosphatase 74, Total Protein 6.1L, Albumin 3.4, Triglycerides Level 43, Cholesterol Level 133, LDL Cholesterol Direct 86, VLDL Cholesterol 9, HDL Cholesterol 32L Assessment/Plan Assessment/Plan Assessment/Plan Acute Cholecystitis with Cholelithiasis - proven on US Abnormal Coagulation profile - Eliquis secondary to CAD stents History of severe GI bleed, managed by Dr. George at [facility] Hx of CAD with stent placement, on abixaban at home (stent in 2019) Celiac disease HTN HLD Plan IVF. NPO, Zofran for Nausea control, Pain management. I talked to pt and went over his options; I think he will benefit from Cholecystectomy. He is on a blood thinner, stopped yesterday in an attempt to give the medicine a chance to fade off. Planning on surgery today. we went over risks and complications not limited to pain, bleeding, infection, scar, damage to bowel and bile duct with need for further procedure. He is in a significant amount of pain and this is at least an urgent procedure, with acute findings on US. In fact, pt wants gallbladder out as soon as possible. I did go over risks of excessive bleeding because of the blood thinner, but we may watch an extra night in the hospital to monitor Hg. All questions answered to his satisfaction. Will get consent and plan for surgery tomorrow. BENJAMIN URIARTE DO 12/29/21 1625: Subjective Time Seen by a Provider: 10:56 Subjective/Events-last exam Pt seen and examined, no new complaints. States he is ready for surgery today. Review of Systems HEENT: No Head Aches, No Visual Changes Pulmonary: No Dyspnea, No Cough Cardiovascular: No: Chest Pain, Palpitations Gastrointestinal: Abdominal Pain; No: Nausea, Vomiting Objective Exam General Appearance: No Apparent Distress Respiratory: Lungs Clear (Anterior listening posts only), Normal Breath Sounds, No Accessory Muscle Use, No Respiratory Distress Cardiovascular: Regular Rate, Rhythm, No Murmur Gastrointestinal: normal bowel sounds, soft, guarding (RUQ to palpation), tenderness (RUQ) Assessment/Plan Assessment/Plan Assessment/Plan Acute Cholecystitis with Cholelithiasis - proven on US Abnormal Coagulation profile - Eliquis secondary to CAD stents History of severe GI bleed, managed by Dr. George at [facility] Hx of CAD with stent placement, on abixaban at home (stent in 2019) Celiac disease HTN HLD Plan IVF. NPO, Zofran for Nausea control, Pain management. Planning on surgery today; we went over risks and complications not limited to pain, bleeding, infection, scar, damage to bowel and bile duct with need for further procedure. He is in a significant amount of pain and this is at least an urgent procedure, with acute findings on US. I did go over risks of excessive bleeding because of the blood thinner, but we may watch an extra night in the hospital to monitor Hg. All questions answered to his satisfaction. Will get consent and plan for surgery tomorrow. Supervisory-Addendum Brief Verification & Attestation Participated in pt care: history, MDM, physical Personally performed: exam, history, MDM, supervision of care Care discussed with: Medical Student Procedures: n/a Verification and Attestation of Medical Student E/M Service A medical student performed and documented this service. I then reviewed and verified all information documented by the medical student and made modif ications to such information, when appropriate. I personally performed a physical exam, medical decision making and then discussed any differences between the notes and made revisions as necessary to create one note. Benjamin Uriarte , 12/29/21 , 16:25 VALARIE DUKE Dec 29, 2021 07:51 BENJAMIN URIARET DO Dec 29, 2021 16:25
[2021-12-29] MEDS: D5 1/2 NS W/KCL 20 MEQ/L 1,000 ML IV SCH ×2 (08:34→23:00)
--- NOTE | 2021-12-29 08:35 | Cardiology Progress Note ---
Subjective Date Seen by Provider: Dec 29, 2021 Time Seen by Provider: 08:27 Subjective/Events-last exam Patient in bed, denies any chest pain. Continues to have some RUQ and epigastric pain. Planning for cholecystectomy later this morning. Review of Systems General: No Chills, No Night Sweats, No Fatigue, No Malaise, No Appetite, No Other HEENT: No Head Aches, No Visual Changes, No Eye Pain, No Ear Pain, No Dysphasia, No Sinus Congestion, No Post Nasal Drip, No Sore Throat, No Other Pulmonary: No Dyspnea, No Cough, No Pleuritic Chest Pain, No Other Cardiovascular: No: Chest Pain, Palpitations, Orthopnea, Paroxysmal Noc. Dyspnea, Edema, Lt Headedness, Other Focused Exam Lactate Level 12/28/21 04:10: Lactic Acid Level 1.14 Objective-Cardiology Exam Last Set of Vital Signs Vital Signs 12/29/21 12:01 Temp 37.4 Pulse 85 Resp 18 B/P (MAP) 147/64 (91) Pulse Ox 94 O2 Delivery Nasal Cannula O2 Flow Rate 2.50 I&O Intake and Output 12/28/21 23:59 Intake Total 0 ml Output Total 2050 ml Balance -2050 ml Intake Oral 0 ml Output Urine Total 2050 ml Daily Weight Change Yes, 2-13 lbs General: Alert, Oriented X3, Cooperative HEENT: Atraumatic Neck: Supple Lungs: Clear to Auscultation, Normal Air Movement Heart: Regular Rate, Normal S1, Normal S2, No Murmurs Abdomen: Soft, Other (RU) Extremities: No Clubbing, No Edema Skin: No Rashes, No Significant Lesion Neuro: Normal Gait, Cranial Nerves 3-12 NL Psych/Mental Status: Mental Status NL, Mood NL Results Lab Laboratory Tests 12/29/21 05:42 A/P-Cardiology Admission Diagnosis Chest pain Coronary artery disease Gallstones Atrial fibrillation Assessment/Plan Acute chest pain, atypical in presentation. EKG and cardiac enzymes did not show any acute abnormality, occasional PVCs noted. Likely secondary to cholecystitis, scheduled for cholecystectomy today. Acute cholecystitis, planning for surgery later this morning. Coronary artery disease, history of stent done about 2 years ago, no recent cardiac work-up. Continue to monitor at this point. Paroxysmal atrial fibrillation, currently in sinus rhythm, continue to monitor and restart home medication History of DVT and pulmonary embolism, maintained on oral anticoagulation. History of significant GI bleed requiring multiple transfusions, monitor H&H History of COVID-19 pneumonia with prolonged hospitalization for 2 months in September and October 2021 at [facility] Supervisory-Addendum Brief Supervisory Addendum Participated in pt care: history, MDM, physical Personally performed: exam, history, MDM Care discussed with: UNA Results interpretation: Verified all documentation Notes: Patient was seen and evaluated with Jose Raul, examination performed, management plan was discussed, agree with the current scribed note, I made few changes to the note using Italic font Patient was seen at bedside, laying down comfortably, still having abdominal pain, scheduled for surgery today We will continue monitoring telemetry and heart rate and blood pressure JOSE RAUL VELEZ Dec 29, 2021 08:35 DUNCAN REES MD Dec 29, 2021 13:12
[2021-12-29] MEDS: fentaNYL INJ 100 MCG/2 ML AMP IV PRN ×3 (08:40→20:23)
--- NOTE | 2021-12-29 09:00 | Pulmonary Progress Note ---
Subjective Date Seen by a Provider: Dec 29, 2021 Time Seen by a Provider: 08:51 Subjective/Events-last exam He is admitted with RUQ pain and rt sided chest pain. felt to be from acute cholecystitis based on ct abdomen and us gall bladder. scheduled for cholecystectomy. pt has hx of DVT& PE. was on apixaban which is on hold for surgery. Also small area of pulmonary consolidation. its not clear wheather its a resolving previous pneumonia or new pneumonia. no breathing trouble today. Pt interviewed with [employer] ipad and discussed with RN. he is on inadequate antibiotics. will start on meropenum as pt has recurrent hospitalizations and to cover abdominal source of infection. previously tolerated zosyn. Review of Systems ROS PER RN Sepsis Event Evaluation Height, Weight, BMI Height: '" Weight: lbs. oz. kg; 22.20 BMI Method: Focused Exam Lactate Level 12/28/21 04:10: Lactic Acid Level 1.14 Exam Exam Patient acknowledged, consented, and participated in this virtual visit which was conducted using real time audio/video Vital Signs Date Time Temp Pulse Resp B/P (MAP) Pulse Ox O2 Delivery O2 Flow Rate FiO2 12/29/21 07:38 37.2 87 20 149/73 (98) 95 Nasal Cannula 2.50 12/29/21 06:52 95 Nasal Cannula 2.50 12/29/21 04:16 37.5 86 18 155/75 (101) 95 Nasal Cannula 2.00 12/29/21 02:23 95 Nasal Cannula 2.50 12/29/21 00:20 37.5 84 18 144/70 (94) 94 Nasal Cannula 2.00 12/28/21 21:45 94 Nasal Cannula 2.50 12/28/21 20:15 Nasal Cannula 2.50 12/28/21 19:44 36.2 75 18 165/67 (99) 94 Nasal Cannula 2.00 12/28/21 18:43 95 Nasal Cannula 2.50 12/28/21 16:00 36.4 68 18 156/64 (94) 92 Nasal Cannula 2.00 12/28/21 14:24 94 Nasal Cannula 2.50 12/28/21 12:00 37.3 72 20 156/73 (100) 95 Nasal Cannula 2.00 12/28/21 11:38 Nasal Cannula 2.50 12/28/21 11:33 95 Nasal Cannula 2.50 I & O 12/29/21 07:00 Intake Total 0 ml Output Total 1525 ml Balance -1525 ml Height & Weight Height: '" Weight: lbs. oz. kg; 22.20 BMI Method: General Appearance: No Apparent Distress, Anxious Neck: Supple Respiratory: Lungs Clear (Anterior listening posts only), Normal Breath Sounds, No Respiratory Distress Cardiovascular: Regular Rate, Rhythm, No Murmur, Normal Peripheral Pulses Capillary Refill: Less Than 3 Seconds Gastrointestinal: normal bowel sounds, soft, guarding (RUQ to palpation), tenderness (RUQ) Extremity: Normal Inspection, Pedal Edema (+2 bilat) Neurologic/Psychiatric: Alert, Oriented x3, No Motor/Sensory Deficits Skin: Normal Color, Warm/Dry Lymphatic: No Adenopathy Other comments PE PER RN Results Lab Laboratory Tests 12/28/21 00:07 12/28/21 04:10 12/29/21 05:42 Assessment/Plan Assessment/Plan 1. ACUTE CHOLECYSTITIS CAUSING ABDOMINAL PAIN AND RT SIDED CHEST PAIN. 2. SMALL BASILAR PNEUMONIA. 3.COPD STABLE. 4. HX OF DVT & PE 5. HX GI BLEED. CURRENTLY STABLE. RECOMMENDATIONS 1. ADD MEROPENUM TO COVER ABDOMINAL INFECTION AND ANY HOSPITAL ACQUIRED INFECTION HE WAS IN HOSPITAL REPEATEDLY. 2. CONTINUE AZITHROMYCIN. 3. OK FOR SURGERY FROM PULMONARY POINT OF VIEW WITH MODERATELY HIGH RISK. 4. RESTART ANTI COAGULATION KRYSTAL POST OP, UNTIL THEN SCDS 5. D/W PATIENT AND intervention teacher: Critically Ill Patient Time spent with patient (mins): 30 Diagnosis/Problems Diagnosis/Problems (1) Pneumonia due to gram-negative bacteria (2) Cholecystitis (3) Pre-op chest exam (4) COPD with acute exacerbation (5) Paroxysmal atrial fibrillation Status: Chronic (6) History of recent hospitalization Status: Acute Copy Copies To 1: BRADY QUIROZ MD, HARI P MD Dec 29, 2021 09:00
--- NOTE | 2021-12-29 10:37 | Progress Note - Hospitalist ---
Subjective HPI/CC On Admission Date Seen by Provider: Dec 29, 2021 Time Seen by Provider: 09:35 Anthony Trotter is a 71 year old male with PMH HTN, AFib, DVT/PE, anxiety, hypothyroidism, BPH, GERD, who presented with chest pain. He reports pain in his lower chest and radiating downward. It is improved now with pain medicine. He reports nausea and vomiting. He denies fevers and chills. He is not short of breath. He denies cough. He has never had this pain before. He didn't notice any association with food. He says it started yesterday morning and progressively worsened. Subjective/Events-last exam He is ready for his surgery. He denies any pain. He is hungry. He has not had any more nausea or vomiting. Focused Exam Lactate Level 12/28/21 04:10: Lactic Acid Level 1.14 Objective Exam Vital Signs Vital Signs Date Time Temp Pulse Resp B/P (MAP) Pulse Ox O2 Delivery O2 Flow Rate FiO2 12/29/21 08:00 Nasal Cannula 2.50 12/29/21 07:38 37.2 87 20 149/73 (98) 95 Capillary Refill : Less Than 3 Seconds General Appearance: No Apparent Distress, WD/WN Respiratory: Lungs Clear, No Respiratory Distress Cardiovascular: Regular Rate, Rhythm, No Murmur Gastrointestinal: Normal Bowel Sounds, Soft, Tenderness Extremity: Normal Inspection, No Pedal Edema Neurologic/Psychiatric: Alert, Oriented x3, No Motor/Sensory Deficits, Normal Mood/Affect Skin: Normal Color, Warm/Dry Results/Procedures Lab Laboratory Tests 12/29/21 05:42 Patient resulted labs reviewed. Imaging: Reviewed Imaging Report Assessment/Plan Assessment and Plan Assess & Plan/Chief Complaint Acute cholecystitis CT abdomen with gallstones US consistent with acute cholecystitis Surgery following, cholesystectomy planned for today NPO Hold blood thinners PT/OT after surgery HTN COPD AFib DVT/PE Anxiety Hypothyroidism BPH GERD Holding blood thinners NPO Continue home meds after surgery Diagnosis/Problems Diagnosis/Problems (1) Acute calculous cholecystitis Status: Acute BRADY QUIROZ MD Dec 29, 2021 10:37
[2021-12-29] MEDS ORDERED: LIDOCAINE/EPI 2% 1:100,00 (XYLOCAINE) 20 ML VIAL ONE ×2 (13:24→17:24)
--- NOTE | 2021-12-29 13:34 | Occ Therapy Progress Note ---
Therapy Progress Note OT orders received and chart was reviewed. OT arrives to room at 1304. Pt reports that he is scheduled for surgery at 1300 and that he should be transferred at any time. He requests to defer eval until 12/30/21. OT to attempt again tomorrow if medically appropriate. Shanelle Saleem OT Dec 29, 2021 13:34
[2021-12-29] MEDS: MEROPENEM 500 MG in NS (IVPB) 100 ML IV SCH ×2 (13:37→22:25)
--- NOTE | 2021-12-29 14:24 | Physical Therapy Progress Note ---
Therapy Progress Note Order for PT eval received but patient is having surgery this afternoon. Will try back tomorrow. ALFRED FRIEND PT Dec 29, 2021 14:24
[2021-12-29] MEDS: LACTATED RINGERS 1,000 ML IV PRN ×2 (16:45→22:25)
[2021-12-29] MEDS ORDERED: fentaNYL INJ 100 MCG/2 ML AMP ONE (17:30)
[2021-12-29] MEDS ORDERED: ONDANSETRON 4 MG/2 ML (SDV) Z0FRAN ONE (17:30)
[2021-12-29] MEDS ORDERED: proPOfol 200 MG/20 ML (DIPRIVAN) VIAL IV ONE (17:30)
[2021-12-29] MEDS ORDERED: LIDOCAINE PF 2% 5 ML (XYLOCAINE) VIAL ONE (17:30)
[2021-12-29] MEDS ORDERED: ROCURONIUM 10 MG/ML 5 ML SYRINGE IV ONE (17:30)
[2021-12-29] MEDS ORDERED: SUCCINYLCHOLINE INJ 100 MG/5 ML SYR/VIAL ONE (17:41)
--- NOTE | 2021-12-29 18:43 | Diagnostic Imaging Report ---
INDICATION: Laparoscopic cholecystectomy EXAMINATION: Fluoroscopic evaluation 12/29/21 FINDINGS: 14.1 seconds fluoroscopy time used. Contrast is seen within the common duct which tapers normally. Portions of the distal common duct obscured by overlying artifact. Contrast spills into the right upper quadrant. IMPRESSION: 1. Intraoperative evaluation as discussed above; please see separate surgical report for greater detail. Dictated by: Dictated on workstation # [id number]
--- NOTE | 2021-12-29 18:48 | Progress Note-Post Operative ---
Post-Operative Progess Note Surgeon (s)/Hr Advisor (s) Surgeon SHANNON LUCAS DO Hr Advisor: Luci Pre-Operative Diagnosis Acute Cholecystitis/Cholelithiasis Post-Operative Diagnosis Same Procedure & Operative Findings Date of Procedure 12/29/21 Procedure Performed/Findings PROCEDURE: Laparoscopic cholecystectomy with intraoperative cholangiogram. COMPLICATIONS: None. PROCEDURE: The patient was taken to the operating suite and was prepped and draped in sterile fashion. A surgical pause was performed. Just superior to the umbilicus, a 12 mm incision was made. Dissection was taken down to the fascia, which was then scored and grasped with a Dima and the abdomen was then entered. An 0 Vicryl suture was placed in a [id number]-[id number] fashion and a Mock trocar was placed and secured. Pneumoperitoneum was achieved. A 5mm trochar place in the subxyphoid and 2 in the right upper quadrant. The gallbladder was thickened, had a greenish tint and was very edematous. The gallbladder was then grasped at the fundus and elevated superiorly. Then grabbed down at Mullins's pouch and pulled in an infero-lateral direction. The cystic duct, and cystic artery were then dissected out. Clip was placed on the distal portion of the cystic duct which was then partially transected. An arrow catheter was inserted into the duct. The cholangiogram was then performed. No filing defects and contrast made its way into the duodenum. Catheter removed. Clips were placed on proximal portion of the cystic duct and then the duct was then transected. Clips were placed along the proximal and distal portion of the cystic artery which was then transected. Hook cautery was used to dissect the gallbladder from the gallbladder fossa achieving hemostasis. The gallbladder was placed in an Endobag and removed through the 12 mm trocar site. The abdomen was then reinspected. There was some bleeding from the bed of the liver, we turned the bovie up to 60 and put it on spray. This stopped the bleeding, but we put a surgicel there just in case. Copious amounts of irrigation were used to irrigate the abdomen and there were no signs of active bleeding. Hemostasis had been achieved. The 12 mm fascial defect was then closed with 0 Vicryl suture that had been placed in a [id number] fashion. The abdomen was then desufflated, the trocars were removed. The abdomen was then washed and dried. The skin was then closed using 4-0 Monocryl in a subcuticular fashion. The abdomen was washed and dried and Skin Affix was place over incisions. Patient tolerated the procedure well without any complications and was taken to the recovery room in stable condition. There was no bleeding from the liver, or any of the incisions at the end of the case. Dr. Verma assisted on this case helping to make incisions, close incisions, identify anatomy and hold anatomy out of the way. Anesthesia Type GET Estimated Blood Loss Estimated blood loss (mL): 50ml Specimens/Packing Specimens Removed GB and contents SHANNON LUCAS DO Dec 29, 2021 18:48
[2021-12-29] MEDS ORDERED: NEOSTIGMINE 3 MG/3 ML VIAL ONE (18:49)
[2021-12-29] MEDS ORDERED: GLYCOPYRROLATE 0.2 MG/ML (ROBINUL) 2 ML VIAL ONE (18:49)
[2021-12-29] MEDS ORDERED: SEVOFLURANE (ULTANE) 15 ML INHAL SOLN ONE (18:52)
[2021-12-29] MEDS ORDERED: HYDROmorphone 2 MG/ML VIAL (DILAUDID) ONE (19:13)
[2021-12-29] MEDS ORDERED: ONDANSETRON 4 MG/2 ML (SDV) Z0FRAN IVP PRN (19:15)
[2021-12-29] MEDS ORDERED: MEPERIDINE (DEMEROL) INJ 50 MG/ML IVP ONE (19:15)
[2021-12-29] MEDS ORDERED: fentaNYL INJ 100 MCG/2 ML AMP IVP ONE (19:15)
[2021-12-29] MEDS ORDERED: HYDROmorphone 2 MG/ML VIAL (DILAUDID) IV ONE (19:15)
[2021-12-29] MEDS ORDERED: PROMETHAZINE INJ 25 MG/ML (PHENERGAN) AMP IVP ONE (19:15)
[2021-12-29] MEDS: AZITHROMYCIN INJECTION 250 MG in NS (IVPB) 250 ML IV SCH (20:24)
[2021-12-29] MEDS: ALPRAZolam 0.25 MG (XANAX) TAB PO SCH (22:24)
[2021-12-29] MEDS: MELATONIN 10 MG TABLET PO SCH (22:24)
[2021-12-29] MEDS: MIRTAZAPINE 15 MG (REMERON) TAB PO SCH (22:25)
[2021-12-29] MEDS: diphenhydrAMINE 25 MG TAB (BENADRYL) PO SCH (22:29)
[2021-12-29] MEDS ORDERED: LACTATED RINGERS 1,000 ML IV SCH (23:00)
[2021-12-30] MEDS: fentaNYL INJ 100 MCG/2 ML AMP IV PRN ×2 (01:56→05:28)
[2021-12-30 04:00] VITALS: BP 152/72
[2021-12-30] MEDS: hydrALAZINE (APESOLINE) 20 MG/ML VIAL IV SCH ×5 (05:27→21:15)
[2021-12-30] MEDS: NITROGLYCERIN 2% OINT 1 GM UNIT DOSE PACKET TOP SCH ×3 (05:27→17:06)
[2021-12-30] MEDS: LEVOTHYROXINE 100 MCG (LEVOTHROID) TAB PO SCH (05:27)
[2021-12-30] MEDS: MEROPENEM 500 MG in NS (IVPB) 100 ML IV SCH ×3 (05:28→21:15)
[2021-12-30 05:49] LABS: BASOPHILS % (AUTO) 0 % (0-10); EOSINOPHILS % (AUTO) 0 % (0-10); HEMATOCRIT 36 % (40-54); HEMOGLOBIN 11.2 g/dL (13.3-17.7); LYMPHOCYTES # (AUTO) 0.4 10^3/uL (1.0-4.0); LYMPHOCYTES % (AUTO) 4 % (12-44); MEAN CORPUSCULAR HEMOGLOBIN 29 pg (25-34); MEAN CORPUSCULAR HGB CONC 31 g/dL (32-36); MEAN CORPUSCULAR VOLUME 92 fL (80-99); MEAN PLATELET VOLUME 10.8 fL (9.0-12.2); MONOCYTES # (AUTO) 0.8 10^3/uL (0.0-1.0); MONOCYTES % (AUTO) 8 % (0-12); NEUTROPHILS # (AUTO) 8.9 10^3/uL (1.8-7.8); NEUTROPHILS % (AUTO) 88 % (42-75); PLATELET COUNT 193 10^3/uL (130-400); WHITE BLOOD COUNT 10.2 10^3/uL (4.3-11.0)
[2021-12-30 06:09] LABS: ALBUMIN 3.3 GM/DL (3.2-4.5); POTASSIUM 5.7 MMOL/L (3.6-5.0)
[2021-12-30 06:11] LABS: CALCIUM 9.1 MG/DL (8.5-10.1)
[2021-12-30 06:12] LABS: TOTAL PROTEIN 5.7 GM/DL (6.4-8.2)
[2021-12-30 06:14] LABS: BILIRUBIN,TOTAL 0.6 MG/DL (0.1-1.0)
[2021-12-30 06:15] LABS: PHOSPHORUS 3.9 MG/DL (2.3-4.7)
[2021-12-30 06:16] LABS: CREATININE SERUM 0.83 MG/DL (0.60-1.30)
[2021-12-30 06:19] LABS: MAGNESIUM 1.9 MG/DL (1.6-2.4)
[2021-12-30] MEDS ORDERED: CALC GLUC 1 GM/100 ML IVPB 100 ML IV ONE (07:30)
[2021-12-30 07:33] VITALS: BP 152/71
[2021-12-30] MEDS ORDERED: SODIUM BICARB 8.4% 50 MEQ/50 ML VIAL IV ONE (07:45)
[2021-12-30] MEDS ORDERED: FUROSEMIDE 40 MG (LASIX) TAB PO PRN (07:45)
[2021-12-30] MEDS ORDERED: SOD POLYSTERENE 15 GM/60 ML (KAYEXALATE) UNIT DOSE PO ONE (07:45)
--- NOTE | 2021-12-30 07:48 | Cardiology Progress Note ---
Subjective Date Seen by Provider: Dec 30, 2021 Time Seen by Provider: 07:44 Subjective/Events-last exam Patient was seen at bedside, laying down comfortably Has nitroglycerin patch, reported some chest pain. Currently no active chest pain Review of Systems General: No Chills, No Night Sweats, No Fatigue, No Malaise, No Appetite, No Other HEENT: No Head Aches, No Visual Changes, No Eye Pain, No Ear Pain, No Dysphasia, No Sinus Congestion, No Post Nasal Drip, No Sore Throat, No Other Pulmonary: No Dyspnea, No Cough, No Pleuritic Chest Pain, No Other Cardiovascular: Chest Pain; No: Palpitations, Orthopnea, Paroxysmal Noc. Dyspnea, Edema, Lt Headedness, Other Focused Exam Lactate Level 12/28/21 04:10: Lactic Acid Level 1.14 Objective-Cardiology Exam Last Set of Vital Signs Vital Signs 12/30/21 07:33 Temp 37.1 Pulse 78 Resp 20 B/P (MAP) 152/71 (98) Pulse Ox 95 O2 Delivery Nasal Cannula O2 Flow Rate 2.00 I&O Intake and Output 12/30/21 00:00 Intake Total 0 ml Output Total 306 ml Balance -306 ml Intake Oral 0 ml Output Urine Total 306 ml # Bowel Movements 1 General: Alert, Oriented X3, Cooperative HEENT: Atraumatic Neck: Supple Lungs: Clear to Auscultation, Normal Air Movement Heart: Regular Rate, Normal S1, Normal S2, No Murmurs Abdomen: Soft, Other (RU) Extremities: No Clubbing, No Edema Skin: No Rashes, No Significant Lesion Neuro: Normal Gait, Cranial Nerves 3-12 NL Psych/Mental Status: Mental Status NL, Mood NL Results Lab Laboratory Tests 12/30/21 05:16 A/P-Cardiology Admission Diagnosis Chest pain Coronary artery disease Gallstones Atrial fibrillation Assessment/Plan Acute chest pain, status post cholecystectomy, doing better. Patient had another episode of chest pain requiring nitroglycerin. EKG showed early repolarization pattern. I will repeat troponin today and continue to monitor Acute cholecystitis, status post cholecystectomy on December 29, 2021, recovering well Coronary artery disease, history of stent done about 2 years ago, no recent cardiac work-up. Continue to monitor at this point. Paroxysmal atrial fibrillation, currently in sinus rhythm. Restart amiodarone and monitor tolerance and response [id number] score 4, patient has been maintained on Eliquis, I will restart Eliquis if okay with Dr. Uriarte Hypertension, change Cardizem to Cardizem CD 120 mg daily and evaluate tolerance and response History of DVT and pulmonary embolism, maintained on oral anticoagulation. History of significant GI bleed requiring multiple transfusions, monitor H&H History of COVID-19 pneumonia with prolonged hospitalization for 2 months in September and October 2021 at [facility] DUNCAN REES MD Dec 30, 2021 07:48
[2021-12-30] MEDS: NS IV 1000 ML 1,000 ML IV SCH ×2 (07:54→21:17)
[2021-12-30] MEDS: RT-ALBUTEROL/IPRATROPIUM 3 ML (DUONEB) VIAL INH SCH ×5 (07:57→22:09)
[2021-12-30] MEDS: AMIODARONE 200 MG (CORDARONE) TAB PO SCH (08:06)
[2021-12-30] MEDS: dilTIAZem120 MG (CARDIZEM CD) CAP PO SCH (08:06)
--- NOTE | 2021-12-30 08:33 | Progress Note - Surgery ---
VALARIE DUKE 12/30/21 0833: Subjective Date Seen by a Provider: Dec 30, 2021 Time Seen by a Provider: 07:30 Subjective/Events-last exam Patient s/p day 1 lap kermit. Patient is trembling slightly, states it is because he got cold. States he has some slight tenderness over incision sites. States he got up to go to the bathroom at bedside commode, but he needs a walker to walk at home. Patients was kept overnight to monitor hemoglobin, 11.2 which is stable from yesterday. Patient wishes to go home today if possible Review of Systems General: Chills HEENT: No Head Aches, No Visual Changes Pulmonary: No Dyspnea, No Cough Cardiovascular: No: Chest Pain, Palpitations Gastrointestinal: Abdominal Pain (diffuse mild tenderness s/p lap kermit); No: Nausea, Vomiting Genitourinary: No Dysuria, No Frequency Focused Exam Lactate Level 12/28/21 04:10: Lactic Acid Level 1.14 Objective Exam Vital Signs Date Time Temp Pulse Resp B/P (MAP) Pulse Ox O2 Delivery O2 Flow Rate FiO2 12/30/21 07:57 97 Nasal Cannula 2.50 12/30/21 07:33 37.1 78 20 152/71 (98) 95 Nasal Cannula 2.00 12/30/21 04:00 37.6 79 20 152/72 (98) 97 Nasal Cannula 2.50 12/29/21 23:42 37.3 84 20 129/58 (81) 92 Nasal Cannula 3.00 12/29/21 22:51 95 Nasal Cannula 2.50 12/29/21 20:00 Nasal Cannula 3.00 12/29/21 20:00 36.9 87 18 162/74 (103) 94 Nasal Cannula 3.00 12/29/21 19:50 Nasal Cannula 3 12/29/21 19:44 36.7 21 155/82 (106) 94 Nasal Cannula 3 12/29/21 19:38 18 154/78 (103) 94 Nasal Cannula 3 12/29/21 19:28 13 154/75 (101) 96 OxyMask 10 12/29/21 19:28 OxyMask 10 12/29/21 19:18 19 155/81 (105) 97 OxyMask 10 12/29/21 19:08 24 160/80 (106) 97 OxyMask 10 12/29/21 18:58 OxyMask 10 12/29/21 18:58 36.8 24 146/75 (98) 97 OxyMask 10 12/29/21 16:03 37.5 88 19 148/72 (97) 95 Nasal Cannula 2.50 12/29/21 14:46 94 Nasal Cannula 2.50 12/29/21 12:01 37.4 85 18 147/64 (91) 94 Nasal Cannula 2.50 12/29/21 10:57 95 Nasal Cannula 2.50 I & O 12/30/21 07:00 Intake Total 1350 ml Output Total 256 ml Balance 1094 ml Capillary Refill : Less Than 3 Seconds General Appearance: No Apparent Distress, WD/WN Neck: Supple Respiratory: Lungs Clear (Anterior listening posts only), Normal Breath Sounds, No Accessory Muscle Use, No Respiratory Distress Cardiovascular: Regular Rate, Rhythm, No Murmur Gastrointestinal: normal bowel sounds, soft, tenderness (over insicion sites), other (inscisions look well approximated, clean, dry) Extremity: Normal Inspection, No Pedal Edema Neurologic/Psychiatric: Alert, Oriented x3, No Motor/Sensory Deficits, Normal Mood/Affect Skin: Normal Color, Warm/Dry Results Lab Laboratory Tests 12/30/21 05:16: White Blood Count 10.2, Red Blood Count 3.92L, Hemoglobin 11.2L, Hematocrit 36L, Mean Corpuscular Volume 92, Mean Corpuscular Hemoglobin 29, Mean Corpuscular Hemoglobin Concent 31L, Red Cell Distribution Width 16.0H, Platelet Count 193, Mean Platelet Volume 10.8, Immature Granulocyte % (Auto) 1, Neutrophils (%) (Auto) 88H, Lymphocytes (%) (Auto) 4L, Monocytes (%) (Auto) 8, Eosinophils (%) (Auto) 0, Basophils (%) (Auto) 0, Neutrophils # (Auto) 8.9H, Lymphocytes # (Auto) 0.4L, Monocytes # (Auto) 0.8, Eosinophils # (Auto) 0.0, Basophils # (Auto) 0.0, Immature Granulocyte # (Auto) 0.1, Sodium Level 137, Potassium Level 5.7H, Chloride Level 106, Carbon Dioxide Level 19L, Anion Gap 12, Blood Urea Nitrogen 37H, Creatinine 0.83, Estimat Glomerular Filtration Rate 92, BUN/Creatinine Ratio 45, Glucose Level 108H, Calcium Level 9.1, Corrected Calcium 9.7, Phosphorus Level 3.9, Magnesium Level 1.9, Total Bilirubin 0.6, Aspartate Amino Transf (AST/SGOT) 303H, Alanine Aminotransferase (ALT/SGPT) 352H , Alkaline Phosphatase 319H, Total Protein 5.7L, Albumin 3.3 Microbiology 12/28/21 MRSA Screen - Final, Complete MRSA not isolated Assessment/Plan Assessment/Plan Assessment/Plan Acute Cholecystitis with Cholelithiasis - proven on US Abnormal Coagulation profile - Eliquis secondary to CAD stents History of severe GI bleed, managed by Dr. George at [facility] Hx of CAD with stent placement, on abixaban at home (stent in 2019) Celiac disease HTN HLD Plan Patient s/p day 1 for lap kermit. Was kept overnight to monitor hemoglobin due to history of severe bleeding. Stable overnight, with a hemoglobin at 11.2, yesterday 10.9. Patient is wishing to go home and I think this is an okay option. Will work on getting patient discharged today. BENJAMIN URIARTE DO 12/30/21 1155: Subjective Time Seen by a Provider: 10:14 Subjective/Events-last exam Pt seen and examined, states his pain is minimal and controlled. Nurse states he has a little bit of serous fluid coming from incision above umbilicus. Review of Systems General: Chills HEENT: No Head Aches, No Visual Changes Pulmonary: No Dyspnea, No Cough Cardiovascular: No: Chest Pain, Palpitations Gastrointestinal: Abdominal Pain (diffuse mild tenderness s/p lap kermit); No: Nausea, Vomiting Genitourinary: No Dysuria, No Frequency Objective Exam General Appearance: No Apparent Distress, WD/WN Respiratory: Lungs Clear (Anterior listening posts only), Normal Breath Sounds, No Accessory Muscle Use, No Respiratory Distress Cardiovascular: Regular Rate, Rhythm, No Murmur Gastrointestinal: normal bowel sounds, soft, tenderness (over insicion sites), other (inscisions look well approximated ) Assessment/Plan Assessment/Plan Assessment/Plan Acute Cholecystitis with Cholelithiasis - proven on US Abnormal Coagulation profile - Eliquis secondary to CAD stents History of severe GI bleed, managed by Dr. George at [facility] Hx of CAD with stent placement, on abixaban at home (stent in 2019) Celiac disease HTN HLD Plan Patient s/p day 1 for lap kermit. Was kept overnight to monitor hemoglobin due to history of severe bleeding. Stable overnight, with a hemoglobin at 11.2, yesterday 10.9. Patient is wishing to go home and I think this is an okay option. Will work on getting patient discharged today. Would start his blood thinners on Monday Supervisory-Addendum Brief Verification & Attestation Participated in pt care: history, MDM, physical Personally performed: exam, history, MDM, supervision of care Care discussed with: Medical Student Procedures: n/a Verification and Attestation of Medical Student E/M Service A medical student performed and documented this service. I then reviewed and verified all information documented by the medical student and made modifications to such information, when appropriate. I personally performed a physical exam, medical decision making and then discussed any differences between the notes and made revisions as necessary to create one note. Benjamin Uriarte , 12/30/21 , 11:54 VALARIE DUKE Dec 30, 2021 08:33 BENJAMIN URIARTE DO Dec 30, 2021 11:55
[2021-12-30] MEDS ORDERED: APIXABAN 5 MG (ELIQUIS) TABLET PO SCH (09:00)
[2021-12-30] MEDS ORDERED: ACETAMINOPHEN 500 MG TAB (TYLENOL) PO PRN (10:00)
--- NOTE | 2021-12-30 10:14 | Physical Therapy Evaluation ---
PT Evaluation-General Medical Diagnosis Admission Date Dec 28, 2021 at 02:18 Medical Diagnosis: chest pain/cholelelithasis/COPD Onset Date: Dec 28, 2021 Therapy Diagnosis Therapy Diagnosis: debility/weakness Precautions Precautions/Isolations: Standard Precautions Referral Physician: Colton Reason for Referral: Evaluation/Treatment Medical History Pertinent Medical History: Atrial Fib, COPD Current History ER secondary to SOA and chest pain Reviewed History: Yes Social History Home: Single Level Current Living Status: Other Family Entry Into Home: Ramp Prior Prior Level of Function SCALE: Activities may be completed with or without assistive devices. 5-Ebmbqkbsvp-qkozprk completes the activity by him/herself with no assistance fr om a helper. 5-Set-up or Clean-up Assistance-helper sets up or cleans up; patient completes activity. Swengel assists only prior to or following the activity. 4-Supervision or Touching Assistance-helper provides verbal cues and/or touching/steadying and/or contact guard assistance as patient completes activity. Assistance may be provided throughout the activity or intermittently. 3-Partial/Moderate Assistance-helper does LESS THAN HALF the effort. Swengel lifts, holds or supports trunk or limbs, but provides less than half the effort. 2-Substantial/Maximal Assistance-helper does MORE THAN HALF the effort. Swengel lifts or holds trunk or limbs and provides more than half the effort. 0-Tojkwycjl-kfbhug does ALL the effort. Patient does none of the effort to complete the activity. Or, the assistance of 2 or more helpers is required for the patient to complete the activity. If activity was not attempted, code reason: 7-Patient Refused. 9-Not Applicable-not attempted and the patient did not perform the activity before the current illness, exacerbation or injury. 10-Not Attempted due to Environmental Limitations-(lack of equipment, weather restraints, etc.). 88-Not Attempted due to Medical Conditions or Safety Concerns. Bed Mobility: 6 Transfers (B,C,W/C): 6 Gait: 6 Indoor Mobility (Ambulation): Independent Stairs: Independent Prior Devices Use: Walker PT Evaluation-Current Subjective Patient agrees to PT. Pain Numeric Pain Scale: 7 Location: Medial, Lower Location Body Site: Abdomen Pain Description: Pressure, Acute Objective Patient Orientation: Normal For Age Attachments: Oxygen, IV ROM/Strength ROM Lower Extremities bilateral LE WFL Strength Lower Extremities 3+/5 grossly bilateral LE Integumentary/Posture Integumentary refer to nursing ntoes Bowel Incontinence: No Bladder Incontinence: No Posture WFL Neuromuscular (Tone, Coordination, Reflexes) noted tremors bilateral UE/grossly intact Sensory Vision: Functional Hearing: Functional Transfers Lying to Sitting/Side of Bed(Q: 4 Sit to Stand (QC): 4 Chair/Wxk-jd-Myppq Xfer(QC): 4 Gait Does the Patient Walk?: Yes Mode of Locomotion: Walk Anticipated Mode of Locomotion: Walk Walk 10 feet (QC): 4 Walk 50 ft with 2 Turns(QC): 4 Walk 150 ft (QC): 4 Distance: 200' Gait Assistive Device: FWW Comments/Gait Description steady gait sequence Balance Sitting Static: Normal Sitting Dynamic: Normal Standing Static: Fair Standing Dynamic: Fair Assessment/Needs 71 y.o. male, will be seen short term by skilled PT to address functional strength and mobility to ensure safe return to home at maximum LOF. Rehab Potential: Fair PT Nursing Home Goals Log Washer Goals PT Nursing Home Goals Time Frame: Jan 08, 2022 Roll Left & Right (QC): 6 Sit to Lying (QC): 6 Lying-Sitting on Side/Bed(QC): 6 Sit to Stand (QC): 6 Chair/Viu-jh-Rkwns Xfer(QC): 6 Toilet Transfer (QC): 6 Walk 10 feet (QC): 6 Walk 50ft with 2 Turns (QC): 6 Walk 150 ft (QC): 6 PT Plan Problem List Problem List: Activity Tolerance, Functional Strength, Safety, Balance, Gait, Transfer, Bed Mobility Treatment/Plan Treatment Plan: Continue Plan of Care Treatment Plan: Bed Mobility, Education, Functional Activity Luana, Functional Strength, Gait, Safety, Therapeutic Exercise, Transfers Treatment Duration: Jan 08, 2022 Frequency: 6 times per week Estimated Hrs Per Day: .25 hour per day Time/GCodes Time In: 825 Time Out: 840 Total Billed Treatment Time: 15 Total Billed Treatment 1 visit EVMod 15 min CHELE AC PT Dec 30, 2021 10:14
--- NOTE | 2021-12-30 11:20 | Progress Note - Hospitalist ---
Subjective HPI/CC On Admission Date Seen by Provider: Dec 30, 2021 Time Seen by Provider: 09:50 Anthony Trotter is a 71 year old male with PMH HTN, AFib, DVT/PE, anxiety, hypothyroidism, BPH, GERD, who presented with chest pain. He reports pain in his lower chest and radiating downward. It is improved now with pain medicine. He reports nausea and vomiting. He denies fevers and chills. He is not short of breath. He denies cough. He has never had this pain before. He didn't notice any association with food. He says it started yesterday morning and progressively worsened. Subjective/Events-last exam He is still having some abdominal pain. He was able to eat some breakfast. He denies nausea and vomiting. He denies shortness of breath. Focused Exam Lactate Level 12/28/21 04:10: Lactic Acid Level 1.14 Objective Exam Vital Signs Vital Signs Date Time Temp Pulse Resp B/P (MAP) Pulse Ox O2 Delivery O2 Flow Rate FiO2 12/30/21 10:48 91 Room Air 12/30/21 08:00 2.50 12/30/21 07:33 37.1 78 20 152/71 (98) Capillary Refill : Less Than 3 Seconds General Appearance: No Apparent Distress, WD/WN Respiratory: Lungs Clear, No Respiratory Distress Cardiovascular: Regular Rate, Rhythm, No Murmur Gastrointestinal: Normal Bowel Sounds, Soft, Tenderness, Other (bandage in place) Extremity: Normal Inspection, No Pedal Edema Neurologic/Psychiatric: Alert, Normal Mood/Affect Skin: Normal Color, Warm/Dry Results/Procedures Lab Laboratory Tests 12/30/21 05:16 Patient resulted labs reviewed. Imaging: Reviewed Imaging Report Assessment/Plan Assessment and Plan Assess & Plan/Chief Complaint Acute cholecystitis Elevated LFTs CT abdomen with gallstones US consistent with acute cholecystitis Surgery following s/p cholecystectomy 12/29 Resuming blood thinners on Monday PT/OT LFTs increased, monitor, likely normal post-op Elevated troponin Cardiology following No chest pain Likely type II NC Hyperkalemia Temporizing measures given Add Kayexelate Monitor HTN COPD AFib DVT/PE Anxiety Hypothyroidism BPH GERD Holding blood thinners Continue home meds Diagnosis/Problems Diagnosis/Problems (1) Acute calculous cholecystitis Status: Acute (2) Hyperkalemia Status: Acute (3) Elevated troponin Status: Acute GABRIELLA,BRADY M MD Dec 30, 2021 11:20
[2021-12-30 11:54] VITALS: BP 135/65
--- NOTE | 2021-12-30 12:51 | Occupational Therapy Eval ---
OT Evaluation-General/PLF Medical Diagnosis Admission Date Dec 28, 2021 at 02:18 Medical Diagnosis: chest pain/cholelelithasis/COPD Onset Date: Dec 28, 2021 Therapy Diagnosis Therapy Diagnosis: reduced adl status Precautions Precautions/Isolations: Fall Prevention, Standard Precautions Referral Physician: Colton Robin Reason: Evaluation/Treatment Medical History Pertinent Medical History: Atrial Fib, COPD Current History s/p day 1 lap kermit Per patient, he lives with son and daughter in law in a single story home. He receives assistance with bathing, "sometimes" toileting, and LB dressing. Pt reports that he was getting stronger where he could do a little more for himself prior to arriving to the hospital. He uses a fww at baseline and can be " unsteady" at times. Pt wears 2L oxygen at baseline. Social History Home: Single Level Current Living Status: Other Family Entry Into Home: Ramp ADL-Prior Level of Function SCALE: Activities may be completed with or without assistive devices. 2-Zgwbvuwbwh-xkstjvl completes the activity by him/herself with no assistance from a helper. 5-Set-up or Clean-up Assistance-helper sets up or cleans up; patient completes activity. [place]well assists only prior to or following the activity. 4-Supervision or Touching Assistance-helper provides verbal cues and/or touching/steadying and/or contact guard assistance as patient completes activity. Assistance may be provided throughout the activity or intermittently. 3-Partial/Moderate Assistance-helper does LESS THAN HALF the effort. [place]well lifts, holds or supports trunk or limbs, but provides less than half the effort. 2-Substantial/Maximal Assistance-helper does MORE THAN HALF the effort. [place] lifts or holds trunk or limbs and provides more than half the effort. 4-Fqgnsuxye-xoiwvu does ALL the effort. Patient does none of the effort to complete the activity. Or, the assistance of 2 or more helpers is required for the patient to complete the activity. If activity was not attempted, code reason: 7-Patient Refused. 9-Not Applicable-not attempted and the patient did not perform the activity before the current illness, exacerbation or injury. 10-Not Attempted due to Environmental Limitations-(lack of equipment, weather restraints, etc.). 88-Not Attempted due to Medical Conditions or Safety Concerns. Self Care: Needed Some Help Functional Cognition: Needed Some Help DME/Equipment: Tub/Shower OT Current Status Subjective Pt reports discomfort pain in abdomen secondary to incision. Appearance Pt returned to supine per request. All needs within reach. Mental Status/Objective Patient Orientation: Person, Place, Situation Attachments: Oxygen Current Upper Extremity ROM WNL however complains of incisional pulling with full shoulder range. Upper Extremity Coordination BUE tremors notable with activity. Upper Extremity Strength Not tested secondary to c/o of abdominal pain ADL-Treatment On/Off Footwear (QC): 1 (baseline) Supine<>sit: CGA-Min A. Pt moving slowly secondary to pain. Sit<>stand: Min A. Slightly unsteady on feet. Anticipate assist with clothing management as pt requires BUE support to maintain balance. Pt declines transferring to chair as he reports pain in abdomen with sitting. Declines completing adls and requests to return to supine. Education OT Patient Education: Correct positioning, Modified ADL techniques, Purpose of tx/functional activities, Transfer techniques Teaching Recipient: Patient Teaching Methods: Demonstration, Discussion Response to Teaching: Verbalize Understanding, Reinforcement Needed OT Roadway Engineer Goals Roadway Engineer Goals Time Frame: Jan 08, 2022 Eating (QC): 5 Oral Hygiene (QC): 5 Toileting Hygiene (QC): 3 Shower/Bathe Self (QC): 3 Upper Body Dressing (QC): 3 Lower Body Dressing (QC): 3 1=Demonstrate adherence to instructed precautions during ADL tasks. 2=Patient will verbalize/demonstrate understanding of assistive devices/modifications for ADL. 3=Patient will improve strength/tolerance for activity to enable patient to perform ADL's. OT Education/Plan Problem List/Assessment Assessment: Decreased Activ Tolerance, Decreased UE Strength, Impaired Cognition, Impaired Coordination, Impaired Funct Balance, Impaired Self-Care Skills Discharge Recommendations Plan/Recommendations: Continue POC Therapy Discharge Recommendati: Bath Aide, Home & Family, Post Acute OT (Home health and continued support from family ) Treatment Plan/Plan of Care Treatment,Training & Education: Yes Patient would benefit from OT for education, treatment and training to promote independence in ADL's, mobility, safety and/or upper extremity function for ADL's. Plan of Care: ADL Retraining, Caregiver Training, Functional Mobility, Group Exercise/Act as Ind, UE Funct Exercise/Act Treatment Duration: Jan 08, 2022 Frequency: 3 times per week (3-5x/week) Estimated Hrs Per Day: .25 hour per day Agreement: Yes Rehab Potential: Fair Time/GCodes Start Time: 11:54 Stop Time: 12:05 Total Time Billed (hr/min): 11 Billed Treatment Time 1 visit Shanelle Vernon OT Dec 30, 2021 12:51
--- NOTE | 2021-12-30 13:16 | Anesthesia-General Post-Op ---
General Patient Condition Mental Status/LOC: Same as Preop Cardiovascular: Satisfactory Nausea/Vomiting: Absent Respiratory: Satisfactory Pain: Controlled Complications: Absent Post Op Complications Complications None Follow Up Care/Instructions Patient Instructions None needed. Anesthesia/Patient Condition Patient Condition Patient is doing well, no complaints, stable vital signs, no apparent adverse anesthesia problems. No complications reported per nursing. GANESH MUJICA CRNA Dec 30, 2021 13:16
[2021-12-30 14:16] LABS: POTASSIUM 5.1 MMOL/L (3.6-5.0)
[2021-12-30 14:18] LABS: CALCIUM 8.8 MG/DL (8.5-10.1)
[2021-12-30 14:22] LABS: CREATININE SERUM 0.78 MG/DL (0.60-1.30)
--- NOTE | 2021-12-30 14:32 | Pulmonary Progress Note ---
Subjective Date Seen by a Provider: Dec 30, 2021 Time Seen by a Provider: 14:27 Subjective/Events-last exam he has lap kermit on 12/29. today has mild incisional pain. had hyperkalemia in am. treated. repeat bmp pending. breathing fair but has incisional pain with cough. Review of Systems ROS PER RN Sepsis Event Evaluation Height, Weight, BMI Height: '" Weight: lbs. oz. kg; 22.20 BMI Method: Focused Exam Lactate Level 12/28/21 04:10: Lactic Acid Level 1.14 Exam Exam Patient acknowledged, consented, and participated in this virtual visit which was conducted using real time audio/video Vital Signs Date Time Temp Pulse Resp B/P (MAP) Pulse Ox O2 Delivery O2 Flow Rate FiO2 12/30/21 12:50 114 12/30/21 11:54 36.3 86 20 135/65 (88) 92 Nasal Cannula 2.50 12/30/21 10:48 91 Room Air 12/30/21 08:00 Nasal Cannula 2.50 12/30/21 07:57 97 Nasal Cannula 2.50 12/30/21 07:33 37.1 78 20 152/71 (98) 95 Nasal Cannula 2.00 12/30/21 04:00 37.6 79 20 152/72 (98) 97 Nasal Cannula 2.50 12/29/21 23:42 37.3 84 20 129/58 (81) 92 Nasal Cannula 3.00 12/29/21 22:51 95 Nasal Cannula 2.50 12/29/21 20:00 Nasal Cannula 3.00 12/29/21 20:00 36.9 87 18 162/74 (103) 94 Nasal Cannula 3.00 12/29/21 19:50 Nasal Cannula 3 12/29/21 19:44 36.7 21 155/82 (106) 94 Nasal Cannula 3 12/29/21 19:38 18 154/78 (103) 94 Nasal Cannula 3 12/29/21 19:28 13 154/75 (101) 96 OxyMask 10 12/29/21 19:28 OxyMask 10 12/29/21 19:18 19 155/81 (105) 97 OxyMask 10 12/29/21 19:08 24 160/80 (106) 97 OxyMask 10 12/29/21 18:58 OxyMask 10 12/29/21 18:58 36.8 24 146/75 (98) 97 OxyMask 10 12/29/21 16:03 37.5 88 19 148/72 (97) 95 Nasal Cannula 2.50 12/29/21 14:46 94 Nasal Cannula 2.50 I & O0 12/30/21 07:00 Intake Total 1350 ml Output Total 256 ml Balance 1094 ml Height & Weight Height: '" Weight: lbs. oz. kg; 22.20 BMI Method: General Appearance: No Apparent Distress, WD/WN Neck: Supple Respiratory: Lungs Clear (Anterior listening posts only), Normal Breath Sounds, No Accessory Muscle Use, No Respiratory Distress Cardiovascular: Regular Rate, Rhythm, No Murmur Capillary Refill: Less Than 3 Seconds Gastrointestinal: normal bowel sounds, soft, tenderness (over insicion sites), other (inscisions look well approximated ) Extremity: Normal Inspection, No Pedal Edema Neurologic/Psychiatric: Alert, Normal Mood/Affect Skin: Normal Color, Warm/Dry Other comments PE PER RN Results Lab Laboratory Tests 12/29/21 05:42 12/30/21 05:16 12/30/21 14:00 Assessment/Plan Assessment/Plan 1. ACUTE CHOLECYSTITIS S/P LAP CHOLECYSTECTOMY. 2. COPD EXACERBATION IMPROVED. 3. HYPERKALEMIA TREATED AWAITING ON REPEAT BMP. 4. HX OF DVT AND PE. RESTART ANTICOAGULATION PER SURGERY. Critical Care: Critically Ill Patient Time spent with patient (mins): 15 Diagnosis/Problems Diagnosis/Problems (1) Pneumonia due to gram-negative bacteria (2) Cholecystitis (3) Pre-op chest exam (4) COPD with acute exacerbation (5) Paroxysmal atrial fibrillation Status: Chronic (6) History of recent hospitalization Status: Acute RASHI ARVIZU MD Dec 30, 2021 14:32
[2021-12-30 16:23] VITALS: BP 126/63
[2021-12-30 19:38] VITALS: BP 149/71
[2021-12-30] MEDS ORDERED: AZITHROMYCIN 250 MG TAB (ZITHROMAX) PO SCH (21:00)
[2021-12-30] MEDS ORDERED: AtorvaSTATin TABLET 10 MG TABLET PO SCH (21:00)
[2021-12-30] MEDS: MELATONIN 10 MG TABLET PO SCH (21:16)
[2021-12-30] MEDS: MIRTAZAPINE 15 MG (REMERON) TAB PO SCH (21:16)
[2021-12-30] MEDS: ALPRAZolam 0.25 MG (XANAX) TAB PO SCH (21:16)
[2021-12-30] MEDS: diphenhydrAMINE 25 MG TAB (BENADRYL) PO SCH (21:20)
[2021-12-31] VITALS: BP 113/56
[2021-12-31] MEDS: RT-ALBUTEROL/IPRATROPIUM 3 ML (DUONEB) VIAL INH SCH ×2 (02:07→07:19)
[2021-12-31 04:05] VITALS: BP 121/69
[2021-12-31] MEDS: LEVOTHYROXINE 100 MCG (LEVOTHROID) TAB PO SCH (05:24)
[2021-12-31] MEDS: MEROPENEM 500 MG in NS (IVPB) 100 ML IV SCH (05:24)
[2021-12-31 05:49] LABS: BASOPHILS % (AUTO) 0 % (0-10); EOSINOPHILS % (AUTO) 0 % (0-10); HEMATOCRIT 30 % (40-54); HEMOGLOBIN 9.5 g/dL (13.3-17.7); LYMPHOCYTES # (AUTO) 1.3 10^3/uL (1.0-4.0); LYMPHOCYTES % (AUTO) 22 % (12-44); MEAN CORPUSCULAR HEMOGLOBIN 28 pg (25-34); MEAN CORPUSCULAR HGB CONC 31 g/dL (32-36); MEAN CORPUSCULAR VOLUME 91 fL (80-99); MEAN PLATELET VOLUME 10.6 fL (9.0-12.2); MONOCYTES # (AUTO) 0.7 10^3/uL (0.0-1.0); MONOCYTES % (AUTO) 12 % (0-12); NEUTROPHILS # (AUTO) 3.9 10^3/uL (1.8-7.8); NEUTROPHILS % (AUTO) 65 % (42-75); PLATELET COUNT 155 10^3/uL (130-400)
[2021-12-31 06:08] LABS: ALBUMIN 2.7 GM/DL (3.2-4.5); POTASSIUM 4.6 MMOL/L (3.6-5.0)
[2021-12-31 06:09] LABS: CALCIUM 8.4 MG/DL (8.5-10.1)
[2021-12-31 06:11] LABS: TOTAL PROTEIN 4.8 GM/DL (6.4-8.2)
[2021-12-31 06:12] LABS: BILIRUBIN,TOTAL 0.5 MG/DL (0.1-1.0)
[2021-12-31 06:14] LABS: CREATININE SERUM 0.77 MG/DL (0.60-1.30); PHOSPHORUS 3.7 MG/DL (2.3-4.7)
[2021-12-31 06:17] LABS: MAGNESIUM 1.7 MG/DL (1.6-2.4)
[2021-12-31] MEDS ORDERED: DEXTROSE 50% 50 ML (IMS) SYR IV ONE (07:30)
[2021-12-31] MEDS ORDERED: inSUlin (REGULAR) HUMAN 1 UNIT/0.01 ML (CHARGE PER UNIT) IV ONE (07:30)
[2021-12-31 08:33] VITALS: BP 124/60
[2021-12-31] MEDS: AMIODARONE 200 MG (CORDARONE) TAB PO SCH (08:44)
[2021-12-31] MEDS: dilTIAZem120 MG (CARDIZEM CD) CAP PO SCH (08:44)
--- NOTE | 2021-12-31 08:54 | Progress Note - Surgery ---
VALARIE DUKE 12/31/21 0854: Subjective Date Seen by a Provider: Dec 31, 2021 Time Seen by a Provider: 07:40 Subjective/Events-last exam Upon entering the room patient was sitting up in bed eating breakfast. Patient was set to go home yesterday but had an episode of chest pain and an episode of A-fib. Patient states that today he hasn't had chest pain since the episode yesterday, which resolved with nitro patch. He denies palpiations, SOB, nausea, vomiting. He states that besides the chest pain he didn't notice any other symptoms. He states he feels fine now, but is still having some epigastric pain. He has been passing flatus but no bowel movement yet. He doesn't feel bloated and states his pain is well controlled. His port site superior to his umbilicus is leaking serosanguinous fluid. Hgb is 9.5, down from 11.2 yesterday. Review of Systems General: No Chills, No Night Sweats HEENT: No Head Aches, No Visual Changes Pulmonary: Dyspnea (on exertion; not at rest); No Cough Cardiovascular: No: Chest Pain (since episode yesterday), Palpitations Gastrointestinal: Abdominal Pain (tenderness; improved from yesterday ); No: Nausea, Vomiting Genitourinary: No Dysuria, No Frequency Objective Exam Vital Signs Date Time Temp Pulse Resp B/P (MAP) Pulse Ox O2 Delivery O2 Flow Rate FiO2 12/31/21 08:33 37.0 101 19 124/60 (81) 95 Nasal Cannula 2.50 12/31/21 07:20 94 Nasal Cannula 3.50 12/31/21 07:00 113 12/31/21 04:05 37.3 105 19 121/69 (86) 96 Nasal Cannula 2.50 12/31/21 02:09 90 Nasal Cannula 3.50 12/31/21 00:44 76 12/31/21 00:00 37.4 73 17 113/56 (75) 93 Nasal Cannula 2.50 12/30/21 22:09 86 Nasal Cannula 2.50 12/30/21 20:47 Nasal Cannula 2.50 12/30/21 19:38 37.2 97 24 149/71 (97) 93 Nasal Cannula 2.50 12/30/21 19:00 100 12/30/21 18:47 90 Nasal Cannula 2.50 12/30/21 16:23 36.8 81 16 126/63 (84) 93 Nasal Cannula 2.50 12/30/21 14:30 97 Nasal Cannula 2.50 12/30/21 12:50 114 12/30/21 11:54 36.3 86 20 135/65 (88) 92 Nasal Cannula 2.50 12/30/21 10:48 91 Room Air I & O 12/31/21 07:00 Intake Total 3352 ml Output Total 750 ml Balance 2602 ml Capillary Refill : Less Than 3 Seconds General Appearance: No Apparent Distress, WD/WN Neck: Supple Respiratory: Lungs Clear (Anterior listening posts only), Normal Breath Sounds, No Accessory Muscle Use, No Respiratory Distress Cardiovascular: No Murmur, Normal Peripheral Pulses, Tachycardia Gastrointestinal: soft, tenderness (mild, over insicion sights and epigastric), other (serosanguinous drainage from incision site superior to umilicus ) Extremity: No Calf Tenderness, No Pedal Edema Neurologic/Psychiatric: Alert, Normal Mood/Affect Skin: Normal Color, Warm/Dry Results Lab Laboratory Tests 12/30/21 14:00: Sodium Level 138, Potassium Level 5.1H, Chloride Level 107, Carbon Dioxide Level 23, Anion Gap 8, Blood Urea Nitrogen 35H, Creatinine 0.78, Estimat Glomerular Filtration Rate 94, BUN/Creatinine Ratio 45, Glucose Level 108H, Calcium Level 8.8 12/31/21 05:18: Sodium Level 141, Potassium Level 4.6, Chloride Level 109H, Carbon Dioxide Level 21, Anion Gap 11, Blood Urea Nitrogen 34H, Creatinine 0.77, Estimat Glomerular Filtration Rate 95, BUN/Creatinine Ratio 44, Glucose Level 83, Calcium Level 8.4L, White Blood Count 6.0, Red Blood Count 3.34L, Hemoglobin 9.5L, Hematocrit 30L, Mean Corpuscular Volume 91, Mean Corpuscular Hemoglobin 28, Mean Corpuscular Hemoglobin Concent 31L, Red Cell Distribution Width 16.1H, Platelet Count 155, Mean Platelet Volume 10.6, Immature Granulocyte % (Auto) 1, Neutrophils (%) (Auto) 65, Lymphocytes (%) (Auto) 22, Monocytes (%) (Auto) 12, Eosinophils (%) (Auto) 0, Basophils (%) (Auto) 0, Neutrophils # (Auto) 3.9, Lymphocytes # (Auto) 1.3, Monocytes # (Auto) 0.7, Eosinophils # (Auto) 0.0, Basophils # (Auto) 0.0, Immature Granulocyte # (Auto) 0.0, Corrected Calcium 9.4, Phosphorus Level 3.7, Magnesium Level 1.7, Total Bilirubin 0.5, Aspartate Amino Transf (AST/SGOT) 58H, Alanine Aminotransferase (ALT/SGPT) 175H, Alkaline Phosphatase 164H, Total Protein 4.8L, Albumin 2.7L Microbiology 12/28/21 MRSA Screen - Final, Complete MRSA not isolated Assessment/Plan Assessment/Plan Assessment/Plan Acute Cholecystitis with Cholelithiasis - proven on US Abnormal Coagulation profile - Eliquis secondary to CAD stents Episode of Chest pain and elevated troponin - T2 vs T1 SC, cardiology following Tachycardia - Episode of a-fib yesterday, cardiology following Anemia - Hgb 9.5 down from 11.2 yesterday, continue to monitor Hyperkalemia - was up to 5.7, currently 4.6, continue to monitor History of severe GI bleed, managed by Dr. George at [facility] Hx of CAD with stent placement, on abixaban at home (stent in 2019) Celiac disease HTN HLD Plan Patient s/p day 2 for lap kermit. Patient kept yesterday due to chest pain, elevated troponin, an episode of a -fib and hyperkalemia. When I talked to him this morning he stated he feels fine. He still has serosanguinous leaking from his primary incision above his umbilicus. Will continue to monitor along with his Hgb. Still okay to go home from a surgery standpoint when deemed okay by medicine and cardiology. Cardiology following for his elevated troponin and tachycardia, appreciate their recs. Continue to monitor. BENJAMIN URIARET DO 12/31/21 1547: Subjective Time Seen by a Provider: 10:36 Subjective/Events-last exam Pt seen and examined, denies any new pain. Review of Systems Pulmonary: Dyspnea (on exertion; not at rest); No Cough Cardiovascular: Palpitations; No: Chest Pain (since episode yesterday) Gastrointestinal: Abdominal Pain (tenderness; improved from yesterday ); No: Nausea, Vomiting Objective Exam General Appearance: No Apparent Distress, WD/WN Respiratory: Lungs Clear (Anterior listening posts only), Normal Breath Sounds, No Accessory Muscle Use, No Respiratory Distress Cardiovascular: No Murmur, Tachycardia Gastrointestinal: soft, tenderness (mild, over insicion sights and epigastric), other (serosanguinous drainage at supraumbilical incision (on gauze) not leaking when I took down bandage) Assessment/Plan Assessment/Plan Assessment/Plan Acute Cholecystitis with Cholelithiasis - proven on US Abnormal Coagulation profile - Eliquis secondary to CAD stents Episode of Chest pain and elevated troponin - T2 vs T1 SC, cardiology following Tachycardia - Episode of a-fib yesterday, cardiology following Anemia - Hgb 9.5 down from 11.2 yesterday, continue to monitor Hyperkalemia - was up to 5.7, currently 4.6, continue to monitor History of severe GI bleed, managed by Dr. George at [facility] Hx of CAD with stent placement, on abixaban at home (stent in 2019) Celiac disease HTN HLD Plan Patient s/p day 2 for lap kermit. Patient kept yesterday due to chest pain, elevated troponin, an episode of a -fib and hyperkalemia. Pt okay to go home from a surgery standpoint when deemed okay by medicine and cardiology. Cardiology following for his elevated troponin and tachycardia, appreciate their recs. Supervisory-Addendum Brief Verification & Attestation Participated in pt care: history, MDM, physical Personally performed: exam, history, MDM, supervision of care Care discussed with: Medical Student Procedures: n/a Verification and Attestation of Medical Student E/M Service A medical student performed and documented this service. I then reviewed and verified all information documented by the medical student and made modifications to such information, when appropriate. I personally performed a physical exam, medical decision making and then discussed any differences between the notes and made revisions as necessary to create one note. Benjamin Uriarte , 12/31/21 , 15:47 VALARIE DUKE Dec 31, 2021 08:54 BENJAMIN URIARTE DO Dec 31, 2021 15:47
[2021-12-31 08:55] VITALS: BP 124/60
--- NOTE | 2021-12-31 10:02 | Physical Therapy Daily Note ---
PT Daily Note-Current Subjective Pt agrees to PT. Pt does not complain of any pain, says he feels weak. Mental Status Patient Orientation: Person, Place, Time, Situation Attachments: Oxygen, IV Transfers SCALE: Activities may be completed with or without assistive devices. 5-Vstppabtgo-eygzpof completes the activity by him/herself with no assistance from a helper. 5-Set-up or Clean-up Assistance-helper sets up or cleans up; patient completes activity. Rodney assists only prior to or following the activity. 4-Supervision or Touching Assistance-helper provides verbal cues and/or touching/steadying and/or contact guard assistance as patient completes activity. Assistance may be provided throughout the activity or intermittently. 3-Partial/Moderate Assistance-helper does LESS THAN HALF the effort. Rodney lifts, holds or supports trunk or limbs, but provides less than half the effort. 2-Substantial/Maximal Assistance-helper does MORE THAN HALF the effort. Rodney lifts or holds trunk or limbs and provides more than half the effort. 6-Eeorhagly-cgibdv does ALL the effort. Patient does none of the effort to complete the activity. Or, the assistance of 2 or more helpers is required for the patient to complete the activity. If activity was not attempted, code reason: 7-Patient Refused. 9-Not Applicable-not attempted and the patient did not perform the activity before the current illness, exacerbation or injury. 10-Not Attempted due to Environmental Limitations-(lack of equipment, weather restraints, etc.). 88-Not Attempted due to Medical Conditions or Safety Concerns. Roll Left & Right (QC): 4 Lying to Sitting/Side of Bed(Q: 4 Sit to Stand (QC): 4 Gait Training Does the Patient Walk?: Yes Distance: 250' Walk 10 feet (QC): 4 Walk 50 ft with 2 Turns(QC): 4 Walk 150 ft (QC): 4 Gait Persons Needed: 1 Gait Assistive Device: FWW safe and functional with no deviation Exercises Seated Therapy Exercises: Ankle pumps, Long arc quads, Hip flexion Seated Reps: 10 Assessment Current Status: Good Progress Pt states that after walking and exercise he feels better and not as weak. PT Fci Goals Fci Goals PT Slubber Machine Operator Goals Time Frame: Jan 08, 2022 Roll Left & Right (QC): 6 Sit to Lying (QC): 6 Lying-Sitting on Side/Bed(QC): 6 Sit to Stand (QC): 6 Chair/Ick-jl-Hdblb Xfer(QC): 6 Toilet Transfer (QC): 6 Walk 10 feet (QC): 6 Walk 50ft with 2 Turns (QC): 6 Walk 150 ft (QC): 6 PT Plan Treatment/Plan Treatment Plan: Continue Plan of Care Treatment Plan: Bed Mobility, Education, Functional Activity Luana, Functional Strength, Gait, Safety, Therapeutic Exercise, Transfers Treatment Duration: Jan 08, 2022 Frequency: 6 times per week Estimated Hrs Per Day: .25 hour per day Time/GCodes Time In: 935 Time Out: 951 Total Billed Treatment Time: 16 Total Billed Treatment 1, FA 16 min CHELE AC PT Dec 31, 2021 10:02
[2021-12-31 11:15] VITALS: BP 132/64
--- NOTE | 2021-12-31 11:36 | Discharge Summary ---
Discharge Summary Reconcile Patient Problems Problems Reviewed?: Yes Instructions for Patient Via [facility], Assessment/Instructions Take medications as prescribed. Follow up with your PCP. Return with worsening pain, redness or drainage from your incision, or if you feel like you are getting worse. Physician to follow Patient: [place] Discharge Diet for Home: Low Fat/Low Cholesterol Hospital Course Date of Admission: Dec 28, 2021 at 02:18 Admission Diagnosis : Acute cholecystitis Family Physician/Provider: Bella,Local Physician Date of Discharge: 12/31/21 Discharge Diagnosis: Acute cholecystitis Hospital Course: Anthony Trotter is a 71 year old male who presented with chest pain and was admitted with acute cholecystitis. Surgery was consulted and assisted with his care. Gallbladder ultrasound was consistent with acute cholecystitis. He underwent cholecystectomy and did well post-operatively. His blood thinners were held and scheduled to resume on Monday. His course was complicated by hyperkalemia which improved. He also had elevated LFTs which improved. He had an elevated troponin but did not have any chest pain. This was thought to be due to demand ischemia from his surgery. He improved and was stabilized for discharge home with [facility]. He should follow up with his PCP at the [facility] in a week or two. Labs and Pending Lab Test: Laboratory Tests 12/30/21 14:00: Sodium Level 138, Potassium Level 5.1H, Chloride Level 107, Carbon Dioxide Level 23, Anion Gap 8, Blood Urea Nitrogen 35H, Creatinine 0.78, Estimat Glomerular Filtration Rate 94, BUN/Creatinine Ratio 45, Glucose Level 108H, Calcium Level 8.8 12/31/21 05:18: Sodium Level 141, Potassium Level 4.6, Chloride Level 109H, Carbon Dioxide Level 21, Anion Gap 11, Blood Urea Nitrogen 34H, Creatinine 0.77, Estimat Glomerular Filtration Rate 95, BUN/Creatinine Ratio 44, Glucose Level 83, Calcium Level 8.4L, White Blood Count 6.0, Red Blood Count 3.34L, Hemoglobin 9.5L, Hematocrit 30L, Mean Corpuscular Volume 91, Mean Corpuscular Hemoglobin 28, Mean Corpuscula r Hemoglobin Concent 31L, Red Cell Distribution Width 16.1H, Platelet Count 155, Mean Platelet Volume 10.6, Immature Granulocyte % (Auto) 1, Neutrophils (%) (Auto) 65, Lymphocytes (%) (Auto) 22, Monocytes (%) (Auto) 12, Eosinophils (%) (Auto) 0, Basophils (%) (Auto) 0, Neutrophils # (Auto) 3.9, Lymphocytes # (Auto) 1.3, Monocytes # (Auto) 0.7, Eosinophils # (Auto) 0.0, Basophils # (Auto) 0.0, Immature Granulocyte # (Auto) 0.0, Corrected Calcium 9.4, Phosphorus Level 3.7, Magnesium Level 1.7, Total Bilirubin 0.5, Aspartate Amino Transf (AST/SGOT) 58H, Alanine Aminotransferase (ALT/SGPT) 175H, Alkaline Phosphatase 164H, Total Protein 4.8L, Albumin 2.7L Microbiology 12/28/21 MRSA Screen - Final, Complete MRSA not isolated Home Meds Active Reported Zzzquil (Diphenhydramine HCl) 50 Mg/30 Ml Liquid 50 Mg PO HS ALPRAZolam 0.25 Mg Tablet 0.25 Mg PO HS Tylenol Extra Strength (Acetaminophen) 500 Mg Tablet 1,000 Mg PO QID PRN Miralax (Polyethylene Glycol 3350) 17 Gm Powd.pack 17 Gm PO DAILY PRN Melatonin 5 Mg Tablet 10 Mg PO HS TAKES 2 (5MG) TABS Eliquis (Apixaban) 5 Mg Tablet 5 Mg PO BID Vitamin B-12 (Cyanocobalamin (Vitamin B-12)) 500 Mcg Tablet 1,000 Mcg PO DAILY TAKES 2 (500MCG) TABS Guaifenesin 200 Mg Tablet 200 Mg PO BID Furosemide 40 Mg Tablet 40 Mg PO DAILY PRN Mirtazapine 45 Mg Tablet 22.5 Mg PO HS TAKES OF A 45MG TAB Omeprazole 20 Mg Tab.rap.dr 40 Mg PO BID TAKES 2 (20MG) CAPS Levothyroxine Sodium 200 Mcg Tablet 200 Mcg PO DAILY Atorvastatin Calcium 20 Mg Tablet 10 Mg PO HS TAKES OF A 20MG Combivent Respimat Inhal [place] (Albuterol/Ipratropium) 4 Gm Aero 1 Puff IH QID Flomax (Tamsulosin HCl) 0.4 Mg Cap 0.4 Mg PO 1800 TAKES 30 MINUTES AFTER MEAL Xanax (Alprazolam) 0.25 Mg Tablet 0.25 Mg PO 0800,1400 PRN TAKES 1 TAB AT BEDTIME AND MAY TAKE 2 OTHER DOSES DURING THE DAY NEEDED Proair Hfa (Albuterol Sulfate) 1 Puff Puff 2 Puff IH Q4H PRN Vitamin E (Vitamin E Acetate) 400 Unit Capsule 400 Unit PO DAILY Amiodarone HCl 200 Mg Tablet 400 Mg PO DAILY TAKES 2 (200MG) TABS Docusate Sodium 100 Mg Capsule 200 Mg PO DAILY TAKES 2 (100MG) CAPS Consulations Surgery Patient Allergies: Coded Allergies: Penicillins (Verified Allergy, Mild, 12/28/21) gluten (Unverified Allergy, Unknown, 10/26/21) Pt has Celiac disease Home Health Need/Face to Face Date of Face to Face: Dec 31, 2021 Clinical Findings: Instability, Muscle weakness, Unsteady gait I have seen Pt [id number]: Yes Discharged To: Home Diagnosis/Conditions: Acute cholecystitis AFib DVT/PE Problems/Diagnosis/Condition: (1) Acute calculous cholecystitis (2) Paroxysmal atrial fibrillation (3) History of deep venous thrombosis or pulmonary embolus Patient is Homebound due to: Joe fall risk due to instabilty, Muscle weakness, Shortness of breath/distress Homebound Status Due to the above stated illness, injury or surgical procedure (medical condition or diagnosis) and associated clinical findings, the patient is homebound because of his/her inability to leave home except with aid of a supportive device and/or person AND leaving the home requires a considerable and taxing effort or is medically contraindicated. Pt req the following assistanc: Aid of another person, [facility] Nursing Orders Home Health Services Order: Nursing Services, Emergency Planning And Response Manager-Evaluate & Tr eat, Physical Therapy-Evaluate & Treat Home Health Infusion Therapy Line Start Date: Dec 28, 2021 Therapy Orders Therapy Orders: OT (must have SN or PT order), Physical Therapy Therapy Specific Orders: Eval assistive deivces, Teach enviro modifications/safety, Gait training, Increase strength/endurance Certify Stmt I certify that this patient is under my care and that I, a nurse practitioner or a physician; a senior administrative assistant working with me, had a face to face encounter that - meets the physician face to face encounter requirements with this patient as dated. Discharge Physical Exam General: Alert, Oriented X3, Cooperative, No Acute Distress HEENT: Atraumatic, EOMI, Mucous Memb Moist/[place] Lungs: Clear to Auscultation, Normal Air Movement Heart: Regular Rate, Normal S1, Normal S2, No Murmurs Abdomen: Normal Bowel Sounds, Soft, No Tenderness Extremities: No Edema, No Tenderness/Swelling Skin: No Rashes, No Significant Lesion Neuro: Normal Speech, Normal Tone Psych/Mental Status: Mental Status NL, Mood NL BRADY QUIROZ MD Dec 31, 2021 11:36
[2021-12-31] MEDS ORDERED: RT-ALBUTEROL/IPRATROPIUM 3 ML (DUONEB) VIAL INH SCH (21:00)
== END 2021-12-31 12:35 | disposition home health service (06) | DRG 418 ==
LOC: EDUNIT# 23:53 → ER 23:56 → EDLOC 12-28 02:18 → ICU 12-28 02:18 → 4TH 12-28 10:07
PROVIDERS: ADMIT Internal Medicine; ATTEND Internal Medicine
PROC: BF12YZZ Fluoroscopy of Gallbladder using Other Contrast (ICD-10-PCS; 2021-12-29)
PROC: 0FT44ZZ Resection of Gallbladder, Percutaneous Endoscopic Approach (ICD-10-PCS; principal; 2021-12-29 17:41)
DX: K80.00 Calculus of gallbladder with acute cholecystitis without obstruction (principal); J44.1 Chronic obstructive pulmonary disease with (acute) exacerbation; I24.8 Other forms of acute ischemic heart disease; K90.0 Celiac disease; E78.00 Pure hypercholesterolemia, unspecified; E87.5 Hyperkalemia; I48.0 Paroxysmal atrial fibrillation; Z86.718 Personal history of other venous thrombosis and embolism; Z86.711 Personal history of pulmonary embolism; F41.9 Anxiety disorder, unspecified; K21.9 Gastro-esophageal reflux disease without esophagitis; E03.9 Hypothyroidism, unspecified; N40.0 Benign prostatic hyperplasia without lower urinary tract symptoms; I25.10 Atherosclerotic heart disease of native coronary artery without angina pectoris; Z95.5 Presence of coronary angioplasty implant and graft; Z86.16 Personal history of COVID-19; R79.1 Abnormal coagulation profile; D64.9 Anemia, unspecified; I10 Essential (primary) hypertension
CPT/HCPCS: 36415; 71045; 71275; 74177; 76000; 76700; 80048; 80053; 80061; 81000; 82150; 82550; 82553; 83605; 83690; 83735; 83874; 83880; 84100; 84484; 85007; 85025; 85027; 85379; 85610; 85730; 87081; 93005; 93041; 93306; 94640; 94664; 94760

== ENCOUNTER 2022-03-24 11:16 | Emergency (ER) | payer OTHER ==
[~2022-03-24] VITALS: Ht 182.8 cm; Wt 72.5 kg
[~2022-03-24 11:16] MED LIST changes: +ACET-2267 PO; +ALPR0.254 PO; +CYAN500T8 PO; +DIPH50LI PO; +MELA5TAB14 PO; +OMEP20TA56 PO; -OMEP20TA7 PO
[2022-03-24 11:50] LABS: BASOPHILS % (AUTO) 1 % (0-10); EOSINOPHILS # (AUTO) 0.2 10^3/uL (0.0-0.3); EOSINOPHILS % (AUTO) 3 % (0-10); HEMATOCRIT 40 % (40-54); HEMOGLOBIN 12.3 g/dL (13.3-17.7); LYMPHOCYTES # (AUTO) 2.7 10^3/uL (1.0-4.0); LYMPHOCYTES % (AUTO) 42 % (12-44); MEAN CORPUSCULAR HEMOGLOBIN 28 pg (25-34); MEAN CORPUSCULAR HGB CONC 31 g/dL (32-36); MEAN CORPUSCULAR VOLUME 92 fL (80-99); MEAN PLATELET VOLUME 10.7 fL (9.0-12.2); MONOCYTES # (AUTO) 0.7 10^3/uL (0.0-1.0); MONOCYTES % (AUTO) 10 % (0-12); NEUTROPHILS # (AUTO) 2.9 10^3/uL (1.8-7.8); NEUTROPHILS % (AUTO) 45 % (42-75); PLATELET COUNT 173 10^3/uL (130-400); WHITE BLOOD COUNT 6.5 10^3/uL (4.3-11.0)
[2022-03-24 11:52] LABS: ALBUMIN 4.1 GM/DL (3.2-4.5); POTASSIUM 5.2 MMOL/L (3.6-5.0)
[2022-03-24 11:53] LABS: CALCIUM 9.2 MG/DL (8.5-10.1)
[2022-03-24 11:54] LABS: TOTAL PROTEIN 6.8 GM/DL (6.4-8.2)
[2022-03-24 11:56] LABS: BILIRUBIN,TOTAL 0.5 MG/DL (0.1-1.0)
[2022-03-24 11:58] LABS: CREATININE SERUM 0.99 MG/DL (0.60-1.30)
[2022-03-24] MEDS ORDERED: NS IV 500 ML 500 ML IV ONE (12:00)
--- NOTE | 2022-03-24 12:03 | ED General ---
General Chief Complaint: Abdominal/GI Problems Stated Complaint: COPD Nursing Triage Note: PT TO RM 7 BY WHEELCHAIR WITH COMPLAINT OF SHARP ABDOMEN PAIN IN THE CENTER OF ABDOMEN AND ON THE LEFT UPPER QUAD. PT STATED THAT HE HAD HIS GALLBLADDER OUT 2MO AGO. PT STATED THAT HE HAS SOB BUT HAS BEEN DIAGNOSED WITH COPD. (KIN CHEN) History of Present Illness Date Seen by Provider: Mar 24, 2022 Time Seen by Provider: 11:40 Initial Comments 71-year-old male presents for a 3 to 4-day history of left lower rib pain, increased symptoms with coughing, COPD with increased phlegm production, and occasional nausea. He was treated in [facility] recently for an WA and had stents placed. He stopped aspirin on March 18 but has continued Plavix per his client analyst recommendation. He has nitroglycerin at home, he has not taken it as this pain did not feel cardiac in nature to him. He is vaccinated and has received 1 booster shot for COVID. He has had no known exposure to COVID. He wears O2 per NC at night, as needed during the day. He is in process to receive a C-PAP. Timing/Duration: 3-4 Days Severity: Moderate Associated Systoms: No Chest Pain; Cough; No Diaphoresis, No Fever/Chills, No Headaches, No Loss of Appetite; Malaise; No Nausea/Vomiting, No Rash; Shortness of Air (mild and no worse than normal with activity. ) (KIN CHEN) Allergies and Home Medications Allergies Coded Allergies: Penicillins (Verified Allergy, Mild, 12/28/21) gluten (Unverified Allergy, Unknown, 10/26/21) Pt has Celiac disease Patient Home Medication List Home Medication List Reviewed: Yes (KIN CHEN) ALPRAZolam (ALPRAZolam) 0.25 Mg Tablet, 0.25 MG PO HS, (Reported) Entered as Reported by: TATE LINDA on 12/28/21 1035 Acetaminophen (Tylenol Extra Strength) 500 Mg Tablet, 1,000 MG PO QID PRN for PAIN-MILD (1-4), (Reported) Entered as Reported by: TATE LINDA on 12/28/21 1025 Albuterol Sulfate (Proair Hfa) 1 Puff Puff, 2 PUFF IH Q4H PRN for SHORTNESS OF BREATH, (Reported) Entered as Reported by: IVET MARTÍNEZ on 10/23/211957 Albuterol/Ipratropium (Combivent Respimat Inhal [place]) 4 Gm Aero, 1 PUFF IH QID, (Reported) Entered as Reported by: IVET MARTÍNEZ on 10/23/211957 Alprazolam (Xanax) 0.25 Mg Tablet, 0.25 MG PO 0800,1400 PRN for ANXIETY, (Reported) Entered as Reported by: IVET MARTÍNEZ on 10/23/211957 Amiodarone HCl (Amiodarone HCl) 200 Mg Tablet, 400 MG PO DAILY, (Reported) Entered as Reported by: IVET MARTÍNEZ on 10/23/211957 Apixaban (Eliquis) 5 Mg Tablet, 5 MG PO BID, (Reported) Entered as Reported by: TATE LINDA on 12/28/21 102 Atorvastatin Calcium (Atorvastatin Calcium) 20 Mg Tablet, 10 MG PO HS, (Reported) Entered as Reported by: TATE LINDA on 10/25/21 1234 Cyanocobalamin (Vitamin B-12) (Vitamin B-12) 500 Mcg Tablet, 1,000 MCG PO DAILY, (Reported) Entered as Reported by: TATE LINDA on 12/28/21 1025 Diphenhydramine HCl (Zzzquil) 50 Mg/30 Ml Liquid, 50 MG PO HS, (Reported) Entered as Reported by: TATE LINDA on 12/28/21 1039 Docusate Sodium (Docusate Sodium) 100 Mg Capsule, 200 MG PO DAILY, (Reported) Entered as Reported by: IVET MARTÍNEZ on 10/23/211957 Doxycycline Hyclate (Doxycycline Hyclate) 100 Mg Tablet, 100 MG PO BID Prescribed by: KIN CHEN on 03/24/22 1341 Furosemide (Furosemide) 40 Mg Tablet, 40 MG PO DAILY PRN for 2LB WEIGHT GAIN (BASE LB 165), (Reported) Entered as Reported by: RODRIGUEZ MARIO on 12/07/21 1450 Guaifenesin (Guaifenesin) 200 Mg Tablet, 200 MG PO BID, (Reported) Entered as Reported by: RODRIGUEZ MARIO on 12/07/21 1450 Levothyroxine Sodium (Levothyroxine Sodium) 200 Mcg Tablet, 200 MCG PO DAILY, (Reported) Entered as Reported by: TATE LINDA on 10/25/21 1234 Melatonin (Melatonin) 5 Mg Tablet, 10 MG PO HS, (Reported) Entered as Reported by: TATE LINDA on 12/28/21 1025 Mirtazapine (Mirtazapine) 45 Mg Tablet, 22.5 MG PO HS, (Reported) Entered as Reported by: TATE LINDA on 10/25/21 1234 Omeprazole (Omeprazole) 20 Mg Tab.rap.dr, 40 MG PO BID, (Reported) Entered as Reported by: TATE LINDA on 10/25/21 1234 Polyethylene Glycol 3350 (Miralax) 17 Gm Powd.pack, 17 GM PO DAILY PRN for CONSTIPATION-2ND LINE, (Reported) Entered as Reported by: TATE LINDA on 12/28/21 1025 Prednisone (Prednisone) 20 Mg Tab, 40 MG PO DAILY Prescribed by: KIN CHEN on 03/24/22 1342 Tamsulosin HCl (Flomax) 0.4 Mg Cap, 0.4 MG PO 1800, (Reported) Entered as Reported by: IVET MARTÍNEZ on 10/23/211957 Vitamin E Acetate (Vitamin E) 400 Unit Capsule, 400 UNIT PO DAILY, (Reported) Entered as Reported by: IVET MARTÍNEZ on 10/23/211957 Review of Systems Review of Systems Constitutional: no symptoms reported, see HPI EENTM: see HPI, no symptoms reported Respiratory: see HPI, cough, dyspnea on exertion (chronic), other (left CVAT) Cardiovascular: no symptoms reported, see HPI; No chest pain Gastrointestinal: no symptoms reported, see HPI Genitourinary: no symptoms reported, see HPI (KIN CHEN) All Other Systems Reviewed Negative Unless Noted: Yes (KIN CHEN) Past Xqshwec-Knyvqa-Uxkvxx Hx Patient Social History Tobacco Use?: Yes Tobacco type used: Cigarettes Smoking Status: Current Everyday Smoker Substance use?: No Alcohol Use?: No Pt feels they are or have been: No (KIN CHEN) Immunizations Up To Date Influenza Vaccine Up-to-Date: Yes; Up-to-Date First/Initial COVID19 Vaccinat: 2020 Second COVID19 Vaccination Femi: 2020 Third COVID19 Vaccination Date: 2020 (KIN CHEN) Past Medical History Surgery/Hospitalization HX: RECENTLY 51DAYS AT [facility], GI BLEED AND COVID PT STATES GALLBLADDER REMOVED JANUARY 2022 Surgeries: Yes (HERNIA REPAIR) Abdominal, Appendectomy, Cardiac, Coronary Stent Respiratory: Yes Pneumonia, Pulmonary Embolism, COPD Cardiac: Yes (DVT R ARM 10/2021; COVID 09/2021) Atrial Fibrillation, Coronary Artery Disease, Deep Vein Thrombosis, High Cholesterol Neurological: No Genitourinary: No Gastrointestinal: Yes Abdominal Hernia, Gastroesophageal Reflux, Gastrointestinal Bleed Musculoskeletal: Yes Arthritis, Chronic Back Pain Endocrine: No HEENT: No Loss of Vision: Denies Hearing Impairment: Denies Cancer: No Psychosocial: No (KIN CHEN) Family Medical History Reviewed Nursing Family Hx (KIN CHEN) COPD, Diabetes (KIN CHEN) Physical Exam Vital Signs Vital Signs - First Documented 03/24/22 11:21 Temp 35.5 Pulse 56 Resp 18 B/P (MAP) 139/58 (85) Pulse Ox 97 O2 Delivery Room Air (EVA ARMSTRONG MD) Vital Signs Capillary Refill : Less Than 3 Seconds (KIN CHEN) Height, Weight, BMI Height: '" Weight: lbs. oz. kg; 21.00 BMI Method: General Appearance: No Apparent Distress, WD/WN HEENT: PERRL/EOMI, TMs Normal, Normal ENT Inspection Neck: Full Range of Motion, Normal Inspection, Non Tender, Supple Respiratory: Chest Non Tender, Lungs Clear, Decreased Breath Sounds Cardiovascular: Regular Rate, Rhythm, No Murmur, Normal Peripheral Pulses Gastrointestinal: Normal Bowel Sounds, Non Tender, Soft Back: Normal Inspection Neurologic/Psychiatric: Alert, Oriented x3, No Motor/Sensory Deficits, Normal Mood/Affect (KIN CHEN) Progress/Results/Core Measures Suspected Sepsis SIRS Temperature: Pulse: 56 Respiratory Rate: 18 Laboratory Tests 03/24/22 11:30: White Blood Count 6.5 Blood Pressure 139 /58 Mean: 85 Laboratory Tests 03/24/22 11:30: Creatinine 0.99, INR Comment 1.0, Platelet Count 173, Total Bilirubin 0.5 (KIN CHEN) Results/Orders Lab Results Laboratory Tests Test 03/24/22 11:30 03/24/22 12:00 Range/Units White Blood Count 6.5 4.3-11.0 10^3/uL Red Blood Count 4.34 4.30-5.52 10^6/uL Hemoglobin 12.3 L 13.3-17.7 g/dL Hematocrit 40 40-54 % Mean Corpuscular Volume 92 80-99 fL Mean Corpuscular Hemoglobin 28 25-34 pg Mean Corpuscular Hemoglobin Concent 31 L 32-36 g/dL Red Cell Distribution Width 19.3 H 10.0-14.5 % Platelet Count 173 130-400 10^3/uL Mean Platelet Volume 10.7 9.0-12.2 fL Immature Granulocyte % (Auto) 0 % Neutrophils (%) (Auto) 45 42-75 % Lymphocytes (%) (Auto) 42 12-44 % Monocytes (%) (Auto) 10 0-12 % Eosinophils (%) (Auto) 3 0-10 % Basophils (%) (Auto) 1 0-10 % Neutrophils # (Auto) 2.9 1.8-7.8 10^3/uL Lymphocytes # (Auto) 2.7 1.0-4.0 10^3/uL Monocytes # (Auto) 0.7 0.0-1.0 10^3/uL Eosinophils # (Auto) 0.2 0.0-0.3 10^3/uL Basophils # (Auto) 0.0 0.0-0.1 10^3/uL Immature Granulocyte # (Auto) 0.0 0.0-0.1 10^3/uL Prothrombin Time 14.0 12.2-14.7 SEC INR Comment 1.0 0.8-1.4 Activated Partial Thromboplast Time 35 24-35 SEC Sodium Level 140 135-145 MMOL/L Potassium Level 5.2 H 3.6-5.0 MMOL/L Chloride Level 103 98-107 MMOL/L Carbon Dioxide Level 26 21-32 MMOL/L Anion Gap 11 5-14 MMOL/L Blood Urea Nitrogen 22 H 7-18 MG/DL Creatinine 0.99 0.60-1.30 MG/DL Estimat Glomerular Filtration Rate 80 BUN/Creatinine Ratio 22 Glucose Level 86 70-105 MG/DL Calcium Level 9.2 8.5-10.1 MG/DL Corrected Calcium 9.1 8.5-10.1 MG/DL Total Bilirubin 0.5 0.1-1.0 MG/DL Aspartate Amino Transf (AST/SGOT) 24 5-34 U/L Alanine Aminotransferase (ALT/SGPT) 34 0-55 U/L Alkaline Phosphatase 125 40-136 U/L Troponin I < 0.028 <0.028 NG/ML C-Reactive Protein High Sensitivity 0.37 0.00-0.50 MG/DL Total Protein 6.8 6.4-8.2 GM/DL Albumin 4.1 3.2-4.5 GM/DL Amylase Level 82 25-125 U/L Lipase 28 8-78 U/L Urine Color YELLOW Urine Clarity CLEAR Urine pH 5.5 5-9 Urine Specific [place] <=1.005 1.016-1.022 Urine Protein NEGATIVE NEGATIVE Urine Glucose (UA) NEGATIVE NEGATIVE Urine Ketones NEGATIVE NEGATIVE Urine Nitrite NEGATIVE NEGATIVE Urine Bilirubin NEGATIVE NEGATIVE Urine Urobilinogen 0.2 < = 1.0 MG/DL Urine Leukocyte Esterase NEGATIVE NEGATIVE Urine RBC (Auto) NEGATIVE NEGATIVE Urine RBC NONE /HPF Urine WBC NONE /HPF Urine Squamous Epithelial Cells RARE /HPF Urine Crystals NONE /LPF Urine Bacteria NEGATIVE /HPF Urine Casts PRESENT /LPF Urine Hyaline Casts RARE /LPF Urine Mucus NEGATIVE /LPF Urine Culture Indicated NO Influenza Type A (RT-PCR) Not Detected Not Detecte Influenza Type B (RT-PCR) Not Detected Not Detecte SARS-CoV-2 RNA (RT-PCR) Not Detected Not Detecte (EVA ARMSTRONG MD) Medications Given in ED Current Medications Medications Dose Ordered Sig/Darion Route Start Time Stop Time Status Last Admin Dose Admin Sodium Chloride 500 ml @ 0 mls/hr Q0M ONCE IV 03/24/22 12:00 03/24/22 12:01 DC 03/24/22 12:04 0 MLS/HR (EVA ARMSTRONG MD) Vital Signs/I&O 03/24/22 03/24/22 11:21 14:03 Temp 35.5 Pulse 56 55 Resp 18 17 B/P (MAP) 139/58 (85) 141/65 Pulse Ox 97 94 O2 Delivery Room Air Room Air (EVA ARMSTRONG MD) Vital Signs/I&O Capillary Refill : Less Than 3 Seconds (KIN CHEN) Blood Pressure Mean: 85 Progress Note : Time: 11:40 Progress Note Patient seen and evaluated, will obtain chest x-ray, labs, and give normal saline 500 mL. 1245 COVID and flu testing negative, chest x-ray shows new infiltrate. Patient denies any changes in his status. 1315 discharge planning and return precautions reviewed with the patient and his [id number]. All questions answered. (KIN CHEN) ECG Initial ECG Impression Date: Mar 24, 2022 Initial ECG Impression Time: 12:00 Initial ECG Rate: 65 Initial ECG Rhythm: Normal Sinus Initial ECG Intervals: Normal Initial ECG Intervals ID 179, QRS D 109, QT 412, QTc 424, axis P 35, R -57, T 56 Initial ECG Impression: Normal, Nonspecific Changes Initial ECG Comparisson: Unchanged Comment No acute changes from previous EKG done on 12/28/2021. No ST elevation. (KIN CHEN) Diagnostic Imaging Diagonstic Imaging: Xray Plain Films/CT/US/NM/MRI: chest Comments NAME: PRIMO CHIRINOS [facility] REC#: [id number] PT STATUS: REG ER : 1950 PHYSICIAN: KIN CHEN ADMIT DATE: 03/24/22/ER Draft Date of Exam:03/24/22 CHEST 1 VIEW, AP/PA ONLY EXAMINATION: Chest, one view. HISTORY: Cough, congestion, COPD, pleurisy. COMPARISON: 12/28/2021. FINDINGS: Heart size is stable. Redemonstrated is prominence of the pulmonary vasculature. No consolidation, pleural effusion, or pneumothorax. The osseous structures are intact. IMPRESSION: 1. No acute radiographic abnormality in the chest. 2. Stable findings of pulmonary vascular congestion. Dictated on workstation # [id number] Dict: 03/24/22 1250 Trans: 03/24/22 1253 [id number] Interpreted by: CARLIE CARTER DO Electronically signed by: Reviewed: Reviewed by Me (KIN CHEN) Departure Impression Primary Impression: Costochondral chest pain Additional Impression: COPD with acute exacerbation Disposition: 01 HOME, SELF-CARE Condition: Stable Departure-Patient Inst. Decision time for Depature: 13:15 (KIN CHEN) Referrals: NO,LOCAL PHYSICIAN (PCP/Family) Primary Care Physician Patient Instructions: Exacerbation of COPD (DC) Add. Discharge Instructions: Continue all home medication, inhalers and oxygen as prescribed. Establish care with a heater operator helper, call your primary care provider for referral. Take antibiotics as prescribed. Take prednisone as prescribed. Increase water intake. Use your incentive spirometer. You may take [id number] Robitussin or Delsym for cough. Return to the emergency department for new, urgent healthcare needs. All discharge instructions reviewed with patient and/or family. Voiced understanding. Scripts Prednisone (Prednisone) 20 Mg Tab 40 MG PO DAILY, #6 TAB 0 Refills Prov: KIN CHEN 03/24/22 Doxycycline Hyclate (Doxycycline Hyclate) 100 Mg Tablet 100 MG PO BID, #20 TAB 0 Refills Prov: KIN CHEN 03/24/22 ATTENDING PHYSICIAN NOTE: I was physically present as attending physician in the emergency department during the care of this patient, but I was not directly involved in the decision making or delivery of care for this patient. (EVA ARMSTRONG MD) KIN CHEN Mar 24, 2022 12:03 EVA ARMSTRONG MD Mar 24, 2022 17:24
[2022-03-24 12:08] LABS: BILIRUBIN,URINE NEGATIVE (NEGATIVE); CLARITY,URINE CLEAR; COLOR,URINE YELLOW; GLUCOSE, URINE (UA) NEGATIVE (NEGATIVE); KETONES,URINE NEGATIVE (NEGATIVE); LEUKOCYTE ESTERASE ,URINE NEGATIVE (NEGATIVE); NITRITE,URINE NEGATIVE (NEGATIVE); PH,URINE 5.5 (5-9); PROTEIN,URINE NEGATIVE (NEGATIVE)
[2022-03-24 12:28] LABS: BACTERIA,URINE NEGATIVE /HPF; SQUAMOUS EPITHELIAL CELL,UR RARE /HPF
[2022-03-24 12:29] LABS: HYALINE CASTS, URINE RARE /LPF
--- NOTE | 2022-03-24 12:53 | Diagnostic Imaging Report ---
EXAMINATION: Chest, one view. HISTORY: Cough, congestion, COPD, pleurisy. COMPARISON: 12/28/2021. FINDINGS: Heart size is stable. Redemonstrated is prominence of the pulmonary vasculature. No consolidation, pleural effusion, or pneumothorax. The osseous structures are intact. IMPRESSION: 1. No acute radiographic abnormality in the chest. 2. Stable findings of pulmonary vascular congestion. Dictated by: Dictated on workstation # [id number]
[2022-03-24] MEDS ORDERED: DOXY100T2 PO (13:41)
[2022-03-24] MEDS ORDERED: PRD20T PO (13:42)
[2022-03-24 14:03] VITALS: BP 141/65
== END 2022-03-24 14:03 | disposition home or self-care (01) ==
LOC: EDUNIT# 11:16 → ER 11:18
DX: J44.1 Chronic obstructive pulmonary disease with (acute) exacerbation (principal); M94.0 Chondrocostal junction syndrome [Tietze]; F17.210 Nicotine dependence, cigarettes, uncomplicated; Z99.81 Dependence on supplemental oxygen; Z20.822 Contact with and (suspected) exposure to COVID-19; Z79.02 Long term (current) use of antithrombotics/antiplatelets
CPT/HCPCS: 36415; 71045; 80053; 81000; 82150; 83690; 84484; 85025; 85610; 85730; 86141; 87636; 93005

== ENCOUNTER 2022-04-11 13:13 | Outpatient (RCR) | payer OTHER ==
[~2022-04-11 13:13] MED LIST changes: +DOXY100T2 PO; +PRD20T PO
== END 2022-04-17 | disposition home or self-care (01) ==
LOC: CR 13:13
PROVIDERS: ATTEND Internal Medicine Critical Care Medicine
DX: Z29.8 Encounter for other specified prophylactic measures (principal); I48.0 Paroxysmal atrial fibrillation; I26.99 Other pulmonary embolism without acute cor pulmonale; I25.10 Atherosclerotic heart disease of native coronary artery without angina pectoris; Z95.5 Presence of coronary angioplasty implant and graft
CPT/HCPCS: 93798

== ENCOUNTER 2022-05-16 15:24 | Outpatient (RCR) | payer OTHER | END 2022-05-18 | disposition home or self-care (01) | LOC: CR 15:24 | PROVIDERS: ATTEND Internal Medicine Critical Care Medicine | DX: Z29.8 Encounter for other specified prophylactic measures (principal); I48.0 Paroxysmal atrial fibrillation; I26.99 Other pulmonary embolism without acute cor pulmonale; I25.10 Atherosclerotic heart disease of native coronary artery without angina pectoris; Z95.5 Presence of coronary angioplasty implant and graft; I44.4 Left anterior fascicular block | CPT/HCPCS: 93798 ==

== ENCOUNTER 2022-05-18 10:37 | Emergency (ER) | payer OTHER ==
--- NOTE | 2022-05-18 10:57 | ED Cardiac General ---
History of Present Illness General Chief Complaint: Chest Pain Stated Complaint: CHEST PRESSURE Source: patient, family Exam Limitations: no limitations History of Present Illness Date Seen by Provider: May 18, 2022 Time Seen by Provider: 10:39 Initial Comments 71-year-old male with past medical history of CAD with stenting, DVT and PE on Eliquis, paroxysmal A. fib, COPD on baseline 2 to 3 L oxygen coming in due to chest pain.'s been constant, center of his chest, going on for over 2 days, nonradiating, nothing seems to make better or worse. He has been taking all of his medicines as prescribed and has taken his Plavix and Eliquis today. Is unsure if he is ever felt this way before. Per family, this does not look the same as when he had his MS, and he looked worse then. Denies any fever, does have a chronic cough that is productive, no abdominal pain, nausea, vomiting, focal weakness or numbness, or any other concerns Allergies and Home Medications Allergies Coded Allergies: Penicillins (Verified Allergy, Mild, 12/28/21) gluten (Unverified Allergy, Unknown, 10/26/21) Pt has Celiac disease Patient Home Medication List Home Medication List Reviewed: Yes ALPRAZolam (ALPRAZolam) 0.25 Mg Tablet, 0.25 MG PO HS, (Reported) Entered as Reported by: TATE LINDA on 12/28/21 1035 Acetaminophen (Tylenol Extra Strength) 500 Mg Tablet, 1,000 MG PO QID PRN for PAIN-MILD (1-4), (Reported) Entered as Reported by: TATE LINDA on 12/28/21 1025 Albuterol Sulfate (Proair Hfa) 1 Puff Puff, 2 PUFF IH Q4H PRN for SHORTNESS OF BREATH, (Reported) Entered as Reported by: IVET MARTÍNEZ on 10/23/211957 Albuterol/Ipratropium (Combivent Respimat Inhal [place]) 4 Gm Aero, 1 PUFF IH QID, (Reported) Entered as Reported by: IVET MARTÍNEZ on 10/23/211957 Alprazolam (Xanax) 0.25 Mg Tablet, 0.25 MG PO 0800,1400 PRN for ANXIETY, (Reported) Entered as Reported by: IVET MARTÍNEZ on 10/23/211957 Amiodarone HCl (Amiodarone HCl) 200 Mg Tablet, 400 MG PO DAILY, (Reported) Entered as Reported by: IVET MARTÍNEZ on 10/23/211957 Apixaban (Eliquis) 5 Mg Tablet, 5 MG PO BID, (Reported) Entered as Reported by: TATE LINDA on 12/28/21 102 Atorvastatin Calcium (Atorvastatin Calcium) 20 Mg Tablet, 10 MG PO HS, (Reported) Entered as Reported by: TATE LINDA on 10/25/21 1234 Cyanocobalamin (Vitamin B-12) (Vitamin B-12) 500 Mcg Tablet, 1,000 MCG PO DAILY, (Reported) Entered as Reported by: TATE LINDA on 12/28/21 1025 Diphenhydramine HCl (Zzzquil) 50 Mg/30 Ml Liquid, 50 MG PO HS, (Reported) Entered as Reported by: TATE LINDA on 12/28/21 1039 Docusate Sodium (Docusate Sodium) 100 Mg Capsule, 200 MG PO DAILY, (Reported) Entered as Reported by: IVET MARTÍNEZ on 10/23/211957 Doxycycline Hyclate (Doxycycline Hyclate) 100 Mg Tablet, 100 MG PO BID Prescribed by: KIN CHEN on 03/24/22 1341 Furosemide (Furosemide) 40 Mg Tablet, 40 MG PO DAILY PRN for 2LB WEIGHT GAIN (BASE LB 165), (Reported) Entered as Reported by: RODRIGUEZ MARIO on 12/07/21 1450 Guaifenesin (Guaifenesin) 200 Mg Tablet, 200 MG PO BID, (Reported) Entered as Reported by: RODRIGUEZ MARIO on 12/07/21 1450 Levothyroxine Sodium (Levothyroxine Sodium) 200 Mcg Tablet, 200 MCG PO DAILY, (Reported) Entered as Reported by: TATE LINDA on 10/25/21 1234 Melatonin (Melatonin) 5 Mg Tablet, 10 MG PO HS, (Reported) Entered as Reported by: TATE LINDA on 12/28/21 1025 Mirtazapine (Mirtazapine) 45 Mg Tablet, 22.5 MG PO HS, (Reported) Entered as Reported by: TATE LINDA on 10/25/21 1234 Omeprazole (Omeprazole) 20 Mg Tab.rap.dr, 40 MG PO BID, (Reported) Entered as Reported by: TATE LINDA on 10/25/21 1234 Polyethylene Glycol 3350 (Miralax) 17 Gm Powd.pack, 17 GM PO DAILY PRN for CONSTIPATION-2ND LINE, (Reported) Entered as Reported by: TATE LINDA on 12/28/21 1025 Prednisone (Prednisone) 20 Mg Tab, 40 MG PO DAILY Prescribed by: KIN CHEN on 03/24/22 1342 Tamsulosin HCl (Flomax) 0.4 Mg Cap, 0.4 MG PO 1800, (Reported) Entered as Reported by: IVET MARTÍNEZ on 10/23/211957 Vitamin E Acetate (Vitamin E) 400 Unit Capsule, 400 UNIT PO DAILY, (Reported) Entered as Reported by: IVET MARTÍNEZ on 10/23/211957 Review of Systems Review of Systems Constitutional: No fever EENTM: No Blurred Vision Respiratory: Cough Cardiovascular: Chest Pain Gastrointestinal: Denies Abdominal Pain Genitourinary: No Symptoms Reported Musculoskeletal: no symptoms reported Skin: no symptoms reported Psychiatric/Neurological: No Symptoms Reported Endocrine: No Symptoms Reported Hematologic/Lymphatic: No Symptoms Reported All Other Systems Reviewed Negative Unless Noted: Yes Past Wgelccg-Thzrfb-Icmuqa Hx Patient Social History Tobacco Use?: Yes Immunizations Up To Date First/Initial COVID19 Vaccinat: 2020 Second COVID19 Vaccination Femi: 2020 Third COVID19 Vaccination Date: 2020 Past Medical History Surgery/Hospitalization HX: RECENTLY 51DAYS AT [place], GI BLEED AND COVID PT STATES GALLBLADDER REMOVED JANUARY 2022 Surgeries: Yes (HERNIA REPAIR) Abdominal, Appendectomy, Cardiac, Coronary Stent Respiratory: Yes Pneumonia, Pulmonary Embolism, COPD Cardiac: Yes (DVT R ARM 10/2021; COVID 09/2021) Atrial Fibrillation, Coronary Artery Disease, Deep Vein Thrombosis, High Cholesterol Neurological: No Genitourinary: No Gastrointestinal: Yes Abdominal Hernia, Gastroesophageal Reflux, Gastrointestinal Bleed Musculoskeletal: Yes Arthritis, Chronic Back Pain Endocrine: No HEENT: No Loss of Vision: Denies Hearing Impairment: Denies Cancer: No Psychosocial: No Family Medical History COPD, Diabetes Physical Exam Vital Signs Vital Signs - First Documented 05/18/22 05/18/22 10:41 11:21 Temp 36.5 Pulse 56 Resp 20 B/P (MAP) 148/66 (93) O2 Delivery Nasal Cannula O2 Flow Rate 3.00 Capillary Refill : Height, Weight, BMI Height: '" Weight: lbs. oz. kg; 21.00 BMI Method: General Appearance: No Apparent Distress, WD/WN HEENT: PERRL/EOMI, Normal ENT Inspection, Pharynx Normal Neck: Full Range of Motion, Normal Inspection, Non Tender, Supple Respiratory: Chest Non Tender, Lungs Clear, Normal Breath Sounds, No Accessory Muscle Use, No Respiratory Distress Cardiovascular: Regular Rate, Rhythm, No Edema, Normal Peripheral Pulses Gastrointestinal: Normal Bowel Sounds, Non Tender, Soft; No Distended, No Guard ing Genital/Rectal: Normal Genital Exam Extremity: Normal Capillary Refill, Normal Inspection, Normal Range of Motion, Non Tender, No Calf Tenderness, No Pedal Edema Neurologic/Psychiatric: Alert, No Motor/Sensory Deficits, Normal Mood/Affect Skin: Normal Color, Warm/Dry Lymphatic: No Adenopathy Progress/Results/Core Measures Results/Orders Lab Results Laboratory Tests Test 05/18/22 10:50 Range/Units White Blood Count 8.3 4.3-11.0 10^3/uL Red Blood Count 4.46 4.30-5.52 10^6/uL Hemoglobin 12.7 L 13.3-17.7 g/dL Hematocrit 41 40-54 % Mean Corpuscular Volume 93 80-99 fL Mean Corpuscular Hemoglobin 29 25-34 pg Mean Corpuscular Hemoglobin Concent 31 L 32-36 g/dL Red Cell Distribution Width 17.1 H 10.0-14.5 % Platelet Count 219 130-400 10^3/uL Mean Platelet Volume 10.1 9.0-12.2 fL Immature Granulocyte % (Auto) 1 % Neutrophils (%) (Auto) 54 42-75 % Lymphocytes (%) (Auto) 31 12-44 % Monocytes (%) (Auto) 11 0-12 % Eosinophils (%) (Auto) 2 0-10 % Basophils (%) (Auto) 0 0-10 % Neutrophils # (Auto) 4.5 1.8-7.8 10^3/uL Lymphocytes # (Auto) 2.6 1.0-4.0 10^3/uL Monocytes # (Auto) 0.9 0.0-1.0 10^3/uL Eosinophils # (Auto) 0.2 0.0-0.3 10^3/uL Basophils # (Auto) 0.0 0.0-0.1 10^3/uL Immature Granulocyte # (Auto) 0.1 0.0-0.1 10^3/uL Prothrombin Time 14.2 12.2-14.7 SEC INR Comment 1.1 0.8-1.4 Activated Partial Thromboplast Time 30 24-35 SEC Sodium Level 142 135-145 MMOL/L Potassium Level 3.7 3.6-5.0 MMOL/L Chloride Level 101 98-107 MMOL/L Carbon Dioxide Level 30 21-32 MMOL/L Anion Gap 11 5-14 MMOL/L Blood Urea Nitrogen 18 7-18 MG/DL Creatinine 1.07 0.60-1.30 MG/DL Estimat Glomerular Filtration Rate 73 BUN/Creatinine Ratio 17 Glucose Level 97 70-105 MG/DL Calcium Level 8.7 8.5-10.1 MG/DL Corrected Calcium 8.8 8.5-10.1 MG/DL Magnesium Level 1.9 1.6-2.4 MG/DL Total Bilirubin 0.4 0.1-1.0 MG/DL Aspartate Amino Transf (AST/SGOT) 34 5-34 U/L Alanine Aminotransferase (ALT/SGPT) 63 H 0-55 U/L Alkaline Phosphatase 138 H 40-136 U/L Troponin I < 0.028 <0.028 NG/ML B-Type Natriuretic Peptide 34.0 <100.0 PG/ML Total Protein 6.4 6.4-8.2 GM/DL Albumin 3.9 3.2-4.5 GM/DL Lipase 23 8-78 U/L My Orders Orders - BACILIO GRIFFITH MD Ekg Tracing (05/18/22 10:44) Cbc With Automated Diff (05/18/22 10:55) Magnesium (05/18/22 10:55) Chest 1 View, Ap/Pa Only (05/18/22 10:55) Ekg Tracing (05/18/22 10:55) Comprehensive Metabolic Panel (05/18/22 10:55) Protime With Inr (05/18/22 10:55) Partial Thromboplastin Time (05/18/22 10:55) O2 (05/18/22 10:55) Monitor-Rhythm Ecg Trace Only (05/18/22 10:55) Ed Iv/Invasive Line Start (05/18/22 10:55) Lipase (05/18/22 10:55) Bnp [place] (05/18/22 10:55) Troponin I [place] (05/18/22 10:55) Furosemide Injection (Lasix Injection) (05/18/22 11:30) Potassium Chloride (Tablet) (K Dur Table (05/18/22 11:30) Medications Given in ED Current Medications Medications Dose Ordered Sig/Darion Route Start Time Stop Time Status Last Admin Dose Admin Furosemide 40 mg ONCE ONCE IVP 05/18/22 11:30 05/18/22 11:31 DC 05/18/22 11:38 40 MG Potassium Chloride 40 meq ONCE ONCE PO 05/18/22 11:30 05/18/22 11:31 DC 05/18/22 11:37 40 MEQ Vital Signs/I&O 05/18/22 05/18/22 10:41 11:21 Temp 36.5 Pulse 56 Resp 20 B/P (MAP) 148/66 (93) O2 Delivery Nasal Cannula O2 Flow Rate 3.00 Progress Progress Note : Progress Note 71-year-old male with above history coming in due to chest pain that is been c onstant for 2 days. ABCs were intact and vitals were stable on presentation. Physical exam reassuring including a soft and nontender abdomen. EKG sinus bradycardia. Per the patient, his heart rate averages around 55 which is where it is mostly been while on the monitor here. He has no acute ischemic changes on the EKG. An IV was placed and basic labs were obtained including cardiac biomarkers. Troponin is undetectable, and given 2 days of constant pain, this is unlikely to be ACS related. Unlikely to be a new PE given he has not missed any doses of his Eliquis, is not tachycardic, and is on his baseline oxygen. His lungs sounded clear without wheezing, and chest x-ray without infiltrate. No clinical signs of COPD exacerbation, and he recently had a course of antibiotics and prednisone that he finished. 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 which I believe is appropriate at this time Initial ECG Impression Date: May 18, 2022 Initial ECG Impression Time: 10:47 Initial ECG Rate: 49 Initial ECG Rhythm: S.Grupo Comment Narrow QRS, left axis deviation, no significant ST changes or T wave abnormalities, overall appears similar to prior EKG Diagnostic Imaging Diagonstic Imaging: Xray (chest) Comments [facility], [place] NAME: PRIMO CHIRINOS [facility] REC#: [id number] PT STATUS: REG ER : 1950 PHYSICIAN: BACILIO GRIFFITH MD ADMIT DATE: 05/18/22/ER Draft Date of Exam:05/18/22 CHEST 1 VIEW, AP/PA ONLY INDICATION: Chest pain. Shortness of air. COMPARISON: 03/24/2022 FINDINGS: Single frontal radiographic view of the chest was obtained and shows mild cardiomegaly. Pulmonary vasculature is within normal limits. Lungs are clear. There is no focal consolidation, large effusion, nor pneumothorax. IMPRESSION: 1. Mild cardiomegaly, but no evidence of failure or focal infiltrate. Dictated on workstation # [id number] Dict: 05/18/22 1129 Trans: 05/18/22 1131 [id number] Interpreted by: ELICEO CHAUDHARY MD Electronically signed by: Departure Impression Primary Impression: Chest pain Qualified Codes: R07.82 - Intercostal pain Disposition: 01 HOME, SELF-CARE Condition: Stable Departure-Patient Inst. Decision time for Depature: 12:03 Referrals: NO,LOCAL PHYSICIAN (PCP/Family) Primary Care Physician Patient Instructions: Chest Pain Add. Discharge Instructions: Your troponin is negative and your BNP which is a marker of heart failure is only 20 which is good. It does not appear like you are having an active heart attack. Your chest x-ray is clear with no signs of pneumonia. Continue to take all of your medicines as prescribed. If pain worsens or you have any concerns then I would come back to the ER. 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 You can also try taking maalox at home for your discomfort to see if that helps. Work/School Note: Family Work Note, Patient Received Medical Care In the Emergency Department On: May 18, 2022 Patient Will Be Able to Return to Work/School On: May 19, 2022 Work Release Form Date Seen in the Emergency Department: May 18, 2022 Return to Work: May 19, 2022 Restrictions: No Restrictions BACILIO GRIFFITH MD May 18, 2022 10:57
[2022-05-18 11:02] LABS: BASOPHILS % (AUTO) 0 % (0-10); EOSINOPHILS # (AUTO) 0.2 10^3/uL (0.0-0.3); EOSINOPHILS % (AUTO) 2 % (0-10); HEMATOCRIT 41 % (40-54); HEMOGLOBIN 12.7 g/dL (13.3-17.7); LYMPHOCYTES # (AUTO) 2.6 10^3/uL (1.0-4.0); LYMPHOCYTES % (AUTO) 31 % (12-44); MEAN CORPUSCULAR HEMOGLOBIN 29 pg (25-34); MEAN CORPUSCULAR HGB CONC 31 g/dL (32-36); MEAN CORPUSCULAR VOLUME 93 fL (80-99); MEAN PLATELET VOLUME 10.1 fL (9.0-12.2); MONOCYTES # (AUTO) 0.9 10^3/uL (0.0-1.0); MONOCYTES % (AUTO) 11 % (0-12); NEUTROPHILS # (AUTO) 4.5 10^3/uL (1.8-7.8); NEUTROPHILS % (AUTO) 54 % (42-75); PLATELET COUNT 219 10^3/uL (130-400); WHITE BLOOD COUNT 8.3 10^3/uL (4.3-11.0)
[2022-05-18 11:06] LABS: ALBUMIN 3.9 GM/DL (3.2-4.5)
[2022-05-18 11:07] LABS: POTASSIUM 3.7 MMOL/L (3.6-5.0)
[2022-05-18 11:08] LABS: CALCIUM 8.7 MG/DL (8.5-10.1)
[2022-05-18 11:09] LABS: TOTAL PROTEIN 6.4 GM/DL (6.4-8.2)
[2022-05-18 11:11] LABS: BILIRUBIN,TOTAL 0.4 MG/DL (0.1-1.0)
[2022-05-18 11:12] LABS: CREATININE SERUM 1.07 MG/DL (0.60-1.30)
[2022-05-18 11:14] LABS: INR 1.1 (0.8-1.4); PROTHROMBIN TIME PATIENT 14.2 SEC (12.2-14.7)
[2022-05-18 11:15] LABS: MAGNESIUM 1.9 MG/DL (1.6-2.4)
[2022-05-18] MEDS ORDERED: KCL 20 MEQ TAB (K-DUR) PO ONE (11:30)
[2022-05-18] MEDS ORDERED: FUROSEMIDE 40 MG/4 ML INJ (LASIX) IVP ONE (11:30)
--- NOTE | 2022-05-18 11:32 | Diagnostic Imaging Report ---
INDICATION: Chest pain. Shortness of air. COMPARISON: 03/24/2022 FINDINGS: Single frontal radiographic view of the chest was obtained and shows mild cardiomegaly. Pulmonary vasculature is within normal limits. Lungs are clear. There is no focal consolidation, large effusion, nor pneumothorax. IMPRESSION: 1. Mild cardiomegaly, but no evidence of failure or focal infiltrate. Dictated by: Dictated on workstation # [id number]
[2022-05-18 12:12] VITALS: BP 148/65
== END 2022-05-18 12:12 | disposition home or self-care (01) ==
LOC: EDUNIT# 10:37 → ER 10:40
DX: R07.9 Chest pain, unspecified (principal); I48.0 Paroxysmal atrial fibrillation; I25.10 Atherosclerotic heart disease of native coronary artery without angina pectoris; J44.9 Chronic obstructive pulmonary disease, unspecified; Z95.5 Presence of coronary angioplasty implant and graft; Z86.16 Personal history of COVID-19; Z86.718 Personal history of other venous thrombosis and embolism; Z99.81 Dependence on supplemental oxygen; Z79.01 Long term (current) use of anticoagulants; Z79.02 Long term (current) use of antithrombotics/antiplatelets
CPT/HCPCS: 36415; 71045; 80053; 83690; 83735; 83880; 84484; 85025; 85610; 85730; 93005; 93041

== ENCOUNTER 2022-05-27 10:50 | Outpatient (RCR) | payer OTHER | END 2022-06-17 | disposition home or self-care (01) | LOC: CR 10:50 | PROVIDERS: ATTEND Internal Medicine Critical Care Medicine | DX: Z29.8 Encounter for other specified prophylactic measures (principal); I48.0 Paroxysmal atrial fibrillation; I26.99 Other pulmonary embolism without acute cor pulmonale; I25.10 Atherosclerotic heart disease of native coronary artery without angina pectoris; Z95.5 Presence of coronary angioplasty implant and graft | CPT/HCPCS: 93798 ==